=== PATIENT | male | born 1955 | race African-American/Black ===

== ENCOUNTER 2016-12-15 13:07 | Inpatient (IN) | payer MEDICAID, OTHER ==
[~2016-12-15] VITALS: Ht 185.4 cm; Wt 86.6 kg
[~2016-12-15 13:07] MED LIST: FLOMAX0.4 MG ORAL; MACROBID100 MG ORAL; NKM; UNOBMED
[2016-12-15 13:26] VITALS: BP 149/90
[2016-12-15 13:38] LABS: APPEARANCE,URINE CLEAR; KETONES,URINE NEGATIVE (NEGATIVE); LEUKOCYTE ESTERASE ,URINE NEGATIVE (NEGATIVE); NITRITE,URINE NEGATIVE (NEGATIVE); PH,URINE 6 (4.5-8.0); PROTEIN,URINE NEGATIVE (NEGATIVE); UROBILINOGEN,URINE 1 MG/DL (0.0-1.0)
[2016-12-15 14:37] LABS: BASOPHILS % (AUTO) 2.2 % (0.0-2.0); EOSINOPHILS % (AUTO) 0.8 % (0.0-3.0); LYMPHOCYTES % (AUTO) 22.5 % (20.0-45.0); MEAN CORPUSCULAR HEMOGLOBIN 32.2 PG (27.0-31.0); MEAN CORPUSCULAR HGB CONC 32.6 G/DL (32.0-36.0); MEAN CORPUSCULAR VOLUME 99 FL (80-99); MEAN PLATELET VOLUME 5.7 FL (6.5-10.1); MONOCYTES % (AUTO) 6.8 % (1.0-10.0); NEUTROPHILS % (AUTO) 67.7 % (45.0-75.0); PLATELET COUNT 286 K/UL (150-450); RED BLOOD COUNT 3.84 M/UL (4.70-6.10); RED CELL DISTRIBUTION WIDTH 12.3 % (11.6-14.8); WHITE BLOOD COUNT 7.3 K/UL (4.8-10.8)
[2016-12-15 14:47] LABS: ALANINE AMINOTRANSFERASE 9 U/L (3-41); ALBUMIN/GLOBULIN RATIO 1.2 (1.0-2.7); ANION GAP 15 (5-15); ASPARTATE AMINO TRANSFERASE 13 U/L (5-40); CALCIUM 9.3 mg/dL (8.6-10.2); CARBON DIOXIDE 26 mEQ/L (20-30); CHLORIDE 97 mEQ/L (98-107); CREATININE 1.1 mg/dL (0.7-1.2); GLOMERULAR FILTRATION RATE > 60 mL/min (>60); HEMOLYSIS 1; LIPASE 22 U/L (< 60); POTASSIUM 3.6 mEQ/L (3.4-4.9); SODIUM 138 mEQ/L (135-145); TOTAL PROTEIN 7.6 g/dL (6.6-8.7)
[2016-12-15 15:04] LABS: BILIRUBIN,DIRECT 0.2 mg/dL (0.1-0.3)
--- NOTE | 2016-12-15 16:26 | Emergency Room Report ---
History of Present Illness General Chief Complaint: Abdominal Pain Source: Patient (MACKENZIEYANIV Ward D.O.) Present Illness HPI Patient complains of right sided mid abdominal pain for the past 2 days. Patient thought that maybe he had acid reflux and did take Pepto-Bismol. He states that he did not have relief. He has had some nausea but no vomiting. Denies fever or chills. He denies diarrhea. He denies dysuria or hematuria. He has no other complaints. (YANIV MANN D.O.) Allergies: Coded Allergies: No Known Allergies (Unverified , 08/17/13) Patient History Past Medical History: see triage record, old chart reviewed, HTN, seizures, other - BPH Past Surgical History: appy Reviewed Nursing Documentation: PMH: Agreed, PSxH: Agreed (YANIV MANN D.O. ) Nursing Documentation-PMH Hx Hypertension: Yes (YANIV MANN D.O.) Review of Systems All Other Systems: negative except mentioned in HPI (YANIV MANN D.O.) Physical Exam Vital Signs Date Time Temp Pulse Resp B/P Pulse Ox O2 Delivery O2 Flow Rate FiO2 12/15/16 13:11 98.1 87 14 123/87 97 Room Air Sp02 EP Interpretation: reviewed, normal General Appearance: no apparent distress, alert, GCS 15, non-toxic Head: normocephalic, atraumatic Eyes: bilateral eye PERRL, bilateral eye normal inspection ENT: hearing grossly normal, normal pharynx, no angioedema, normal voice Neck: full range of motion, supple/symm/no masses Respiratory: chest non-tender, lungs clear, normal breath sounds, speaking full sentences Cardiovascular #1: regular rate, rhythm, no edema Gastrointestinal: normal bowel sounds, soft, non-distended, no guarding, no rebound, tenderness - TTP RUQ Rectal: deferred Musculoskeletal: back normal, gait/station normal, normal range of motion, non- tender Neurologic: alert, oriented x3, responsive, motor strength/tone normal, sensory intact, speech normal Psychiatric: judgement/insight normal, memory normal, mood/affect normal, no suicidal/homicidal ideation Skin: normal color, no rash, warm/dry, well hydrated (YANIV MANN D.O.) Medical Decision Making Diagnostic Impression: Primary Impression: Abdominal pain Qualified Codes: R10.11 - Right upper quadrant pain Additional Impression: Cholecystitis ER Course This patient presents with a for upper abdominal pain. I am concerned about cholecystitis. The patient is awaiting right upper quadrant ultrasound. Final disposition pending at the time of this dictation. Labs Test 12/15/16 13:15 12/15/16 14:15 Urine Color Yellow Urine Appearance Clear Urine pH 6 (4.5-8.0) Urine Specific [place]yer 1.020 (1.005-1.035) Urine Protein Negative (NEGATIVE) Urine Glucose (UA) Negative (NEGATIVE) Urine Ketones Negative (NEGATIVE) Urine Occult Blood Negative (NEGATIVE) Urine Nitrite Negative (NEGATIVE) Urine Bilirubin Negative (NEGATIVE) Urine Urobilinogen 1 MG/DL (0.0-1.0) Urine Leukocyte Esterase Negative (NEGATIVE) White Blood Count 7.3 K/UL (4.8-10.8) Red Blood Count 3.84 M/UL (4.70-6.10) Hemoglobin 12.4 G/DL (14.2-18.0) Hematocrit 38.0 % (42.0-52.0) Mean Corpuscular Volume 99 FL (80-99) Mean Corpuscular Hemoglobin 32.2 PG (27.0-31.0) Mean Corpuscular Hemoglobin Concent 32.6 G/DL (32.0-36.0) Red Cell Distribution Width 12.3 % (11.6-14.8) Platelet Count 286 K/UL (150-450) Mean Platelet Volume 5.7 FL (6.5-10.1) Neutrophils (%) (Auto) 67.7 % (45.0-75.0) Lymphocytes (%) (Auto) 22.5 % (20.0-45.0) Monocytes (%) (Auto) 6.8 % (1.0-10.0) Eosinophils (%) (Auto) 0.8 % (0.0-3.0) Basophils (%) (Auto) 2.2 % (0.0-2.0) Sodium Level 138 mEQ/L (135-145) Potassium Level 3.6 mEQ/L (3.4-4.9) Chloride Level 97 mEQ/L (98-107) Carbon Dioxide Level 26 mEQ/L (20-30) Anion Gap 15 (5-15) Blood Urea Nitrogen 12 mg/dL (7-23) Creatinine 1.1 mg/dL (0.7-1.2) Estimat Glomerular Filtration Rate > 60 mL/min (>60) Glucose Level 103 mg/dL (74-106) Calcium Level 9.3 mg/dL (8.6-10.2) Total Bilirubin 1.1 mg/dL (0.0-1.2) Direct Bilirubin 0.2 mg/dL (0.1-0.3) Aspartate Amino Transf (AST/SGOT) 13 U/L (5-40) Alanine Aminotransferase (ALT/SGPT) 9 U/L (3-41) Alkaline Phosphatase 66 U/L (40-129) Total Protein 7.6 g/dL (6.6-8.7) Albumin 4.2 g/dL (3.5-5.2) Globulin 3.4 g/dL Albumin/Globulin Ratio 1.2 (1.0-2.7) Lipase 22 U/L (< 60) (YANIV MANN D.O.) ER Course Received signout from Dr Arellano to followup ABD ultrasound CT shows thickened GB wall. Patient s/p appendectomy when he was "12 years old." Endorses 4 days gas, ruq pain, nausea Afebrile. VSS. Labs: No leuks or LFTs. Per tech: GB stone in neck, wall thickened. CBD normal Patient well appearing, ambulating in ED. C/o only of "mild pain." Coags, T&S sent Blood Cx pending Empiric Abx Cefoxitin given General Surgery Dr Kaminski consulted at 611pm. Requested HIDA scan which I ordered Will see patient on consult Endorsed to Dr Moss for med/surg admit at 644pm (KRISTI TOLEDO M.D.) Last Vital Signs Date Time Temp Pulse Resp B/P Pulse Ox O2 Delivery O2 Flow Rate FiO2 12/15/16 13:26 98.1 79 20 149/90 100 Room Air (YANIV MANN D.O.) Status: improved (KRISTI TOLEDO M.D.) Disposition: ADMITTED INPATIENT Condition: Serious Referrals: [facility],REFERRING (PCP) YANIV MANN D.O. Dec 15, 2016 16:26 KRISTI TOLEDO M.D. Dec 15, 2016 18:12
[2016-12-15] MEDS ORDERED: cefOXitin Sod 1 GM in D5W 55 ML IVPB STA (17:41)
[2016-12-15 18:26] LABS: INR 0.9 (0.9-1.1); PROTHROMBIN TIME 9.8 SEC (9.30-11.50)
--- NOTE | 2016-12-15 19:03 | General Progress Note ---
Progress Note Progress Note Surgery: Full consult note to follow. Called to see patient in ED for acute cholecystitis. 61M RUQ abdominal pain x 3 days. Associated nausea, no emesis. Radiation to upper mid/right back. Afebrile, HD stable, no leukocytosis, LFT's okay. CT scan with very distended gallbladder, wall thickening, brennen-cholecystic fluid, and large gallstone in neck of gallbladder. On exam has positive Patel's sign. Given CT scan, physical exam, and pain for 72hrs that has not yet resolved, would recommend admission for monitoring and further evaluation. -NPO with IV fluids -IV Abx -Repeat labs in AM (CBC, CMP) -HIDA scan (given distention of gallbladder and persistent pain, potential for stone being stuck in the neck of the gallbladder causing obstruction) -If does not improve, may need to proceed to surgery -Will follow with you. Thank you for this consultation. Serafin Mcdonough Dec 15, 2016 19:03
[2016-12-15] MEDS ORDERED: Milk of Magnesia 30ml Ud ORAL PRN (19:15)
[2016-12-15] MEDS ORDERED: Mylanta II UD 30ml ORAL PRN ×2 (19:15→19:45)
[2016-12-15] MEDS ORDERED: Morphine Sulfate 2mg/ml Inj IVP PRN ×2 (19:15→19:45)
[2016-12-15] MEDS ORDERED: cefOXitin 1gm Inj ONE (19:23)
[2016-12-15] MEDS ORDERED: Miralax 17gm pkt ORAL PRN (19:45)
[2016-12-15] MEDS ORDERED: Nitroglycerin Subl 0.4mg tab (Bottle Of 25) SL PRN (19:45)
[2016-12-15 19:50] VITALS: BP 140/89
[2016-12-15] MEDS ORDERED: TAMSULOSIN HCL0.4 MG ORAL (19:54)
[2016-12-15] MEDS ORDERED: PROSCAR5 MG ORAL (19:54)
[2016-12-15] MEDS ORDERED: LOSARTAN POTASS25 MG ORAL (19:54)
[2016-12-15] MEDS ORDERED: GABAPENTIN100 MG ORAL (19:54)
[2016-12-15 20:00] VITALS: BP 138/82
[2016-12-15] MEDS ORDERED: LR 1000ml 1,000 ML IV SCH (20:00)
[2016-12-15] MEDS: Morphine Sulfate 2mg/ml Inj IVP PRN (20:19)
[2016-12-15] MEDS: Heparin 5000 units/ml inj SUBQ SCH (21:00)
[2016-12-15] MEDS: Piperacillin/Tazobactam 3.375 GM in D5W 110 ML IVPB SCH (21:53)
[2016-12-15] MEDS: D5 1/2NS 1,000 ML IV SCH (21:53)
--- NOTE | 2016-12-15 22:38 | Consultation ---
Consult Note Consult Note [id number] BABATUNDE BRAGG M.D. Dec 15, 2016 22:38
[2016-12-16] VITALS: BP 138/84
--- NOTE | 2016-12-16 01:15 | Consultation ---
DATE OF CONSULTATION: 12/15/2016 CONSULTING PHYSICIAN: Weston Chávez M.D. REFERRING PHYSICIAN: Amna Moss M.D.. REASON FOR CONSULTATION: Evaluation of patient for cholecystitis, antibiotic management. HISTORY OF PRESENT ILLNESS: The patient is a 61-year-old male with multiple medical problems as listed below who was admitted to this medical center for right upper quadrant pain suggestive cholecystitis. Surgery consult has been requested and Infectious Disease consultation also has been requested for evaluation of the patient and antibiotic management. PAST MEDICAL HISTORY: 1. Seizure. 2. Hypertension. 3. History of appendectomy. 4. History of BPH. 5. History of right knee replacement. ALLERGIES: No known drug allergies. SOCIAL HISTORY: Significant for smoking. FAMILY HISTORY: Noncontributory. REVIEW OF SYSTEMS: A 10-point was done and except what is mentioned above has been negative. PHYSICAL EXAMINATION: VITAL SIGNS: Temperature 98.2, blood pressure 140/89, pulse 74, and respiratory rate 18. HEENT: Mild pale conjunctivae. No icterus. NECK: No lymphadenopathy. CHEST: Clear. HEART: S1 and S2. ABDOMEN: Soft. The patient has right upper quadrant tenderness. Positive Patel's sign. EXTREMITIES: No cyanosis. The patient's left knee wound is healing. NEUROLOGIC: Awake and alert. LABORATORY AND DIAGNOSTIC DATA: White blood cell count 10.3, hemoglobin 12, and platelets 289,000. UA unremarkable. BUN and creatinine normal. Liver function test normal. CT scan of the abdomen reportedly showed distended gallbladder and wall thickening and pericholecystic fluid with large gallstone in the neck of the gallbladder. However, the office report is not available in the computer yet. ASSESSMENT: The patient is a 61-year-old male with, 1. Probable cholecystitis . 2. Right upper quadrant tenderness. PLAN: 1. We will continue the patient on IV Zosyn day #1. 2. Monitor CBC. 3. Monitor BMP. 4. Follow up on ultrasound of the abdomen and HIDA scan reports. 5. Monitor blood culture. 6. Follow surgical recommendations. 7. Based on the patient's clinical course and laboratories, we will give further recommendation. Thank you, Dr. Moss, for allowing me to participate in the care of this patient. I will follow the patient with you during this hospitalization. Weston Chávez M.D. DR: NADIA JOB#: [id number] CC:
[2016-12-16] MEDS: Morphine Sulfate 2mg/ml Inj IVP PRN ×3 (03:28→12:24)
[2016-12-16 04:00] VITALS: BP 144/93
[2016-12-16] MEDS: Piperacillin/Tazobactam 3.375 GM in D5W 110 ML IVPB SCH ×3 (06:05→20:54)
[2016-12-16 06:46] LABS: BASOPHILS % (AUTO) 1.4 % (0.0-2.0); EOSINOPHILS % (AUTO) 1.6 % (0.0-3.0); LYMPHOCYTES % (AUTO) 27.3 % (20.0-45.0); MEAN CORPUSCULAR HEMOGLOBIN 33.8 PG (27.0-31.0); MEAN CORPUSCULAR HGB CONC 34.2 G/DL (32.0-36.0); MEAN CORPUSCULAR VOLUME 99 FL (80-99); MEAN PLATELET VOLUME 5.9 FL (6.5-10.1); MONOCYTES % (AUTO) 10.1 % (1.0-10.0); NEUTROPHILS % (AUTO) 59.5 % (45.0-75.0); PLATELET COUNT 262 K/UL (150-450); RED CELL DISTRIBUTION WIDTH 12.3 % (11.6-14.8); WHITE BLOOD COUNT 6.2 K/UL (4.8-10.8)
[2016-12-16 06:57] LABS: ALANINE AMINOTRANSFERASE 6 U/L (3-41); ALBUMIN/GLOBULIN RATIO 1.1 (1.0-2.7); ANION GAP 15 (5-15); ASPARTATE AMINO TRANSFERASE 13 U/L (5-40); CALCIUM 8.9 mg/dL (8.6-10.2); CARBON DIOXIDE 24 mEQ/L (20-30); CHLORIDE 100 mEQ/L (98-107); CREATININE 1.1 mg/dL (0.7-1.2); GLOMERULAR FILTRATION RATE > 60 mL/min (>60); HEMOLYSIS 4; POTASSIUM 3.8 mEQ/L (3.4-4.9); SODIUM 139 mEQ/L (135-145); TOTAL PROTEIN 6.7 g/dL (6.6-8.7)
[2016-12-16 07:25] LABS: BILIRUBIN,DIRECT 0.2 mg/dL (0.1-0.3)
[2016-12-16 08:00] VITALS: BP 135/86
[2016-12-16 08:04] LABS: AMYLASE 82 U/L (10-110); LIPASE 19 U/L (< 60)
[2016-12-16] MEDS: Pantoprazole Inj IVP SCH (08:19)
[2016-12-16] MEDS: Losartan 25mg tab ORAL SCH (08:21)
[2016-12-16] MEDS: Heparin 5000 units/ml inj SUBQ SCH ×2 (08:23→20:55)
--- NOTE | 2016-12-16 08:57 | Diagnostic Imaging Report ---
Indication: Right upper quadrant pain Technique: Ultrasound of the abdomen. Comparison: CT abdomen and pelvis from earlier the same day Findings: The pancreas is incompletely visualized. Visualized portions are unremarkable. Liver echogenicity is within normal limits. No focal liver lesions are identified. Visualized portions of the main portal vein and the hepatic veins are grossly unremarkable although incompletely evaluated. Gallstones are present. Gallbladder is distended. Gallbladder wall measures approximately 4 mm. Common bile duct measures 5 mm. Bilateral kidneys demonstrate normal echogenicity. No focal renal lesions are seen. There is no hydronephrosis. No echogenic renal stones are identified. The spleen is normal in size and echogenicity. The visualized aorta is normal in caliber. Visualized portions of the inferior vena cava are unremarkable. Impression: Distended gallbladder with sludge and stones. Positive sonographic Patel sign and clinical correlation recommended for acute cholecystitis.
--- NOTE | 2016-12-16 09:47 | History and Physical ---
History of Present Illness General Date patient seen: Dec 16, 2016 Time patient seen: 09:20 Reason for Hospitalization: Abdominal Pain Present Illness HPI 61 y/old male presented with c/o right sided mid abdominal pain x 3 days patient was afebrile, stable VS No leukocytosis, stable LFT CT A/P scan with very distended gallbladder, wall thickening, brennen-cholecystic fluid, and large gallstone in neck of gallbladder. surgeon seen patient in ED, on exam demonstrated + Patel sign Given results of CT scan, physical exam, and pain for 72hrs that had not yet resolved, patient was admitted for monitoring and further evaluation. Allergies: Coded Allergies: No Known Allergies (Unverified , 08/17/13) Medication History Scheduled Finasteride* (Proscar*), Unknown Dose ORAL DAILY, (Reported) Gabapentin* (Gabapentin*), Unknown Dose ORAL THREE TIMES A DAY, (Reported) Losartan Potassium* (Losartan Potassium*), Unknown Dose ORAL DAILY, (Reported) No Known Medications* (NKM - No Known Medications*), 0 ., (Reported) Tamsulosin Hcl (Tamsulosin Hcl*), Unknown Dose ORAL BEDTIME, (Reported) Discontinued Medications Nitrofurantoin Monohyd/M-Cryst (Nitrofurantoin Converse-Mcr 100 mg), 100 MG ORAL Q12H Discontinued Reason: Therapy completed Tamsulosin HCl (Flomax), 0.4 MG ORAL DAILY Discontinued Reason: Therapy completed Patient History History Provided By: Patient Healthcare decision maker Resuscitation status Advanced Directive on File Past Medical/Surgical History Past Medical/Surgical History: (1) HTN (hypertension) (2) BPH (benign prostatic hyperplasia) (3) Urinary Retention (4) hematuria Review of Systems Constitutional: Reports: weakness Eye: Reports: no symptoms ENT: Reports: no symptoms Respiratory: Reports: no symptoms Cardiovascular: Reports: other - HTN Gastrointestinal: Reports: see HPI Genitourinary: Reports: other - Hx of BPH Musculoskeletal: Reports: no symptoms Skin: Reports: no symptoms Neurological: Reports: other - hx of seizures Endocrine: Reports: no symptoms Hematologic/Lymphatic: Reports: no symptoms Physical Exam General Appearance: WD/WN, no apparent distress, alert Lines, tubes and drains: peripheral HEENT: normocephalic, atraumatic, anicteric Neck: non-tender, supple Respiratory/Chest: lungs clear, no respiratory distress, no accessory muscle use Cardiovascular/Chest: normal peripheral pulses, normal rate, no JVD Abdomen: normal bowel sounds, soft - RUQ tenderness, no rebound, no guarding Extremities: normal range of motion, no calf tenderness, normal capillary refill Neurologic: no motor/sensory deficits, alert, oriented x 3 Musculoskeletal: normal muscle bulk Last 24 Hour Vital Signs Date Time Temp Pulse Resp B/P Pulse Ox O2 Delivery O2 Flow Rate FiO2 12/16/16 08:45 97.9 12/16/16 08:21 144/93 12/16/16 08:00 97.3 65 20 135/86 98 Room Air 12/16/16 04:00 97.9 67 18 144/93 97 Room Air 12/16/16 00:00 98.2 74 18 138/84 96 Room Air 12/15/16 20:00 98.2 66 18 138/82 97 Room Air 12/15/16 20:00 98.2 74 18 140/89 100 Room Air 12/15/16 19:50 98.2 74 18 140/89 100 Room Air 12/15/16 13:26 98.1 79 20 149/90 100 Room Air 12/15/16 13:11 98.1 87 14 123/87 97 Room Air Intake and Output 12/15/16 12/16/16 19:00 07:00 Intake Total 1385.0 ml Balance 1385.0 ml Intake IV Total 1385.0 ml # Voids 1 1 Laboratory Tests Test 12/15/16 13:15 12/15/16 14:15 12/16/16 05:40 Urine Color Yellow Urine Appearance Clear Urine pH 6 (4.5-8.0) Urine Specific [place] 1.020 (1.005-1.035) Urine Protein Negative (NEGATIVE) Urine Glucose (UA) Negative (NEGATIVE) Urine Ketones Negative (NEGATIVE) Urine Occult Blood Negative (NEGATIVE) Urine Nitrite Negative (NEGATIVE) Urine Bilirubin Negative (NEGATIVE) Urine Urobilinogen 1 MG/DL (0.0-1.0) H Urine Leukocyte Esterase Negative (NEGATIVE) White Blood Count 7.3 K/UL (4.8-10.8) 6.2 K/UL (4.8-10.8) Red Blood Count 3.84 M/UL (4.70-6.10) L 3.40 M/UL (4.70-6.10) L Hemoglobin 12.4 G/DL (14.2-18.0) L 11.5 G/DL (14.2-18.0) L Hematocrit 38.0 % (42.0-52.0) L 33.6 % (42.0-52.0) L Mean Corpuscular Volume 99 FL (80-99) 99 FL (80-99) Mean Corpuscular Hemoglobin 32.2 PG (27.0-31.0) H 33.8 PG (27.0-31.0) H Mean Corpuscular Hemoglobin Concent 32.6 G/DL (32.0-36.0) 34.2 G/DL (32.0-36.0) Red Cell Distribution Width 12.3 % (11.6-14.8) 12.3 % (11.6-14.8) Platelet Count 286 K/UL (150-450) 262 K/UL (150-450) Mean Platelet Volume 5.7 FL (6.5-10.1) L 5.9 FL (6.5-10.1) L Neutrophils (%) (Auto) 67.7 % (45.0-75.0) 59.5 % (45.0-75.0) Lymphocytes (%) (Auto) 22.5 % (20.0-45.0) 27.3 % (20.0-45.0) Monocytes (%) (Auto) 6.8 % (1.0-10.0) 10.1 % (1.0-10.0) H Eosinophils (%) (Auto) 0.8 % (0.0-3.0) 1.6 % (0.0-3.0) Basophils (%) (Auto) 2.2 % (0.0-2.0) H 1.4 % (0.0-2.0) Prothrombin Time 9.8 SEC (9.30-11.50) Prothromb Time International Ratio 0.9 (0.9-1.1) Activated Partial Thromboplast Time 30 SEC (23-33) 30 SEC (23-33) Sodium Level 138 mEQ/L (135-145) 139 mEQ/L (135-145) Potassium Level 3.6 mEQ/L (3.4-4.9) 3.8 mEQ/L (3.4-4.9) Chloride Level 97 mEQ/L (98-107) L 100 mEQ/L (98-107) Carbon Dioxide Level 26 mEQ/L (20-30) 24 mEQ/L (20-30) Anion Gap 15 (5-15) 15 (5-15) Blood Urea Nitrogen 12 mg/dL (7-23) 10 mg/dL (7-23) Creatinine 1.1 mg/dL (0.7-1.2) 1.1 mg/dL (0.7-1.2) Estimat Glomerular Filtration Rate > 60 mL/min (>60) > 60 mL/min (>60) Glucose Level 103 mg/dL (74-106) 109 mg/dL (74-106) H Calcium Level 9.3 mg/dL (8.6-10.2) 8.9 mg/dL (8.6-10.2) Total Bilirubin 1.1 mg/dL (0.0-1.2) 1.4 mg/dL (0.0-1.2) H Direct Bilirubin 0.2 mg/dL (0.1-0.3) 0.2 mg/dL (0.1-0.3) Aspartate Amino Transf (AST/SGOT) 13 U/L (5-40) 13 U/L (5-40) Alanine Aminotransferase (ALT/SGPT) 9 U/L (3-41) 6 U/L (3-41) Alkaline Phosphatase 66 U/L (40-129) 60 U/L (40-129) Total Protein 7.6 g/dL (6.6-8.7) 6.7 g/dL (6.6-8.7) Albumin 4.2 g/dL (3.5-5.2) 3.6 g/dL (3.5-5.2) Globulin 3.4 g/dL 3.1 g/dL Albumin/Globulin Ratio 1.2 (1.0-2.7) 1.1 (1.0-2.7) Lipase 22 U/L (< 60) Pending Amylase Level Pending Height (Feet): 6 Height (Inches): 1.00 Weight (Pounds): 191 Medications Current Medications Medications (Trade) Dose Ordered Sig/Agnes Route PRN Reason Start Time Stop Time Status Last Admin Dose Admin Acetaminophen (Tylenol) 650 mg Q4H PRN ORAL Mild Pain (Pain Scale 1-3) 12/15/16 19:15 01/14/17 19:14 Acetaminophen (Tylenol) 650 mg Q4H PRN ORAL fever 12/15/16 19:45 01/14/17 19:44 Al Hydroxide/Mg Hydroxide (Mylanta II) 30 ml Q6H PRN ORAL dyspepsia 12/15/16 19:45 01/14/17 19:44 Bisacodyl (Dulcolax) 10 mg HSPRN PRN RECTAL Constipation 12/15/16 19:15 01/14/17 19:14 Dextrose STAT PRN IV Hypoglycemia 12/15/16 19:45 01/14/17 19:44 Dextrose/Sodium Chloride (D5 0.45% NS) 1,000 ml @ 75 mls/hr [id number] IV 12/15/16 21:00 01/14/17 20:59 12/15/16 21:53 Diphenhydramine HCl (Benadryl) 25 mg Q6H PRN ORAL Itching/Pruritis 12/15/16 19:45 01/14/17 19:44 Finasteride (Proscar) 5 mg DAILY ORAL 12/16/16 09:00 01/15/17 08:59 12/16/16 08:22 Heparin Sodium (Porcine) (Heparin 5000 units/ml) 5,000 units EVERY 12 HOURS SUBQ 12/15/16 21:00 01/14/17 20:59 12/16/16 08:23 Losartan Potassium (Cozaar) 25 mg DAILY ORAL 12/16/16 09:00 01/15/17 08:59 12/16/16 08:21 Magnesium Hydroxide 30 ml 30 ml HSPRN PRN ORAL Constipation 12/15/16 19:15 01/14/17 19:14 Morphine Sulfate (Morphine Sulfate) 1 mg Q4H PRN IVP For Pain 12/15/16 19:15 12/22/16 19:14 Morphine Sulfate (Morphine Sulfate) 2 mg Q4H PRN IVP Moderate Pain (Pain Scale 4-6) 12/15/16 19:15 12/22/16 19:14 12/16/16 08:21 Morphine Sulfate (Morphine Sulfate) 4 mg Q4H PRN IVP Severe Pain (Pain Scale 7-10) 12/15/16 19:15 12/22/16 19:14 Nitroglycerin (Ntg) 0.4 mg Q5M X 3 DOSES PRN SL Prn Chest Pain 12/15/16 19:45 01/14/17 19:44 Ondansetron HCl (Zofran) 4 mg Q6H PRN IVP Nausea & Vomiting 12/15/16 19:45 01/14/17 19:44 Pantoprazole (Protonix) 40 mg DAILY IVP 12/16/16 09:00 01/15/17 08:59 12/16/16 08:19 Piperacillin Sod/ Tazobactam Sod/ Dextrose (Zosyn/D5W) 110 ml @ 27.5 mls/hr EVERY 8 HOURS IVPB 12/15/16 22:00 12/22/16 21:59 12/16/16 06:05 Polyethylene Glycol (Miralax) 17 gm HSPRN PRN ORAL Constipation 12/15/16 19:45 01/14/17 19:44 Tamsulosin HCl (Flomax) 0.4 mg BEDTIME ORAL 12/16/16 21:00 01/15/17 20:59 Temazepam (Restoril) 15 mg HSPRN PRN ORAL Insomnia 12/15/16 19:45 12/22/16 19:44 Assessment/Plan Assessment/Plan ASSESSMENT RUQ ABDOMINAL PAIN POSSIBLE ACUTE CHOLECYSTITIS HTN BPH PLAN OF CARE MS floor empiric abx IVF NPO Hida scan monitor LFT surgery and ID follow pain management a/emetic prn BP management with ARB and optimize further as needed DVT GI prophylaxis case discussed and evaluated by supervising physician Saad TrevinoHarlem Valley State HospitalFlaquita Rodriguez NP Dec 16, 2016 09:47
[2016-12-16] MEDS ORDERED: Tubing IV Secondary IV ONE (10:04)
[2016-12-16] MEDS ORDERED: D5 1/2NS 1000ml IV ONE (10:04)
[2016-12-16] MEDS: D5 1/2NS 1,000 ML IV SCH ×2 (10:25→23:40)
[2016-12-16 12:00] VITALS: BP 139/92
[2016-12-16 16:00] VITALS: BP 137/96
[2016-12-16] MEDS: Morphine Sulfate 4mg/ml Inj IVP PRN ×2 (16:43→20:53)
--- NOTE | 2016-12-16 19:33 | Infectious Diseases Prog Note ---
Assessment/Plan Assessment/Plan A The patient is a 61-year-old male with Probable Cholecystitis, antibiotic management. Seizure. Hypertension. History of appendectomy. History of BPH. History of right knee replacement PLAN: continue the patient on IV Zosyn day # 2 Monitor CBC. Monitor BMP. ultrasound of the abdomen and HIDA scan P Monitor blood culture Subjective Allergies: Coded Allergies: No Known Allergies (Unverified , 08/17/13) Subjective RUQ pain Objective Vital Signs Last 24 Hour Vital Signs Date Time Temp Pulse Resp B/P Pulse Ox O2 Delivery O2 Flow Rate FiO2 12/16/16 17:13 97.9 12/16/16 16:00 97.3 90 20 137/96 100 Room Air 12/16/16 12:54 97.9 12/16/16 12:00 97.7 67 20 139/92 97 Room Air 12/16/16 08:21 144/93 12/16/16 08:00 97.3 65 20 135/86 98 Room Air 12/16/16 04:00 97.9 67 18 144/93 97 Room Air 12/16/16 00:00 98.2 74 18 138/84 96 Room Air 12/15/16 20:00 98.2 66 18 138/82 97 Room Air 12/15/16 20:00 98.2 74 18 140/89 100 Room Air 12/15/16 19:50 98.2 74 18 140/89 100 Room Air Height (Feet): 6 Height (Inches): 1.00 Weight (Pounds): 191 HEENT: mucous membranes moist Respiratory/Chest: no respiratory distress Cardiovascular: regularly irregular Abdomen: no mass Laboratory Tests Test 12/16/16 05:40 White Blood Count 6.2 K/UL (4.8-10.8) Red Blood Count 3.40 M/UL (4.70-6.10) L Hemoglobin 11.5 G/DL (14.2-18.0) L Hematocrit 33.6 % (42.0-52.0) L Mean Corpuscular Volume 99 FL (80-99) Mean Corpuscular Hemoglobin 33.8 PG (27.0-31.0) H Mean Corpuscular Hemoglobin Concent 34.2 G/DL (32.0-36.0) Red Cell Distribution Width 12.3 % (11.6-14.8) Platelet Count 262 K/UL (150-450) Mean Platelet Volume 5.9 FL (6.5-10.1) L Neutrophils (%) (Auto) 59.5 % (45.0-75.0) Lymphocytes (%) (Auto) 27.3 % (20.0-45.0) Monocytes (%) (Auto) 10.1 % (1.0-10.0) H Eosinophils (%) (Auto) 1.6 % (0.0-3.0) Basophils (%) (Auto) 1.4 % (0.0-2.0) Activated Partial Thromboplast Time 30 SEC (23-33) Sodium Level 139 mEQ/L (135-145) Potassium Level 3.8 mEQ/L (3.4-4.9) Chloride Level 100 mEQ/L (98-107) Carbon Dioxide Level 24 mEQ/L (20-30) Anion Gap 15 (5-15) Blood Urea Nitrogen 10 mg/dL (7-23) Creatinine 1.1 mg/dL (0.7-1.2) Estimat Glomerular Filtration Rate > 60 mL/min (>60) Glucose Level 109 mg/dL (74-106) H Calcium Level 8.9 mg/dL (8.6-10.2) Total Bilirubin 1.4 mg/dL (0.0-1.2) H Direct Bilirubin 0.2 mg/dL (0.1-0.3) Aspartate Amino Transf (AST/SGOT) 13 U/L (5-40) Alanine Aminotransferase (ALT/SGPT) 6 U/L (3-41) Alkaline Phosphatase 60 U/L (40-129) Total Protein 6.7 g/dL (6.6-8.7) Albumin 3.6 g/dL (3.5-5.2) Globulin 3.1 g/dL Albumin/Globulin Ratio 1.1 (1.0-2.7) Amylase Level 82 U/L (10-110) Lipase 19 U/L (< 60) Current Medications Medications (Trade) Dose Ordered Sig/Agnes Route PRN Reason Start Time Stop Time Status Last Admin Dose Admin Acetaminophen (Tylenol) 650 mg Q4H PRN ORAL Mild Pain (Pain Scale 1-3) 12/15/16 19:15 01/14/17 19:14 Acetaminophen (Tylenol) 650 mg Q4H PRN ORAL fever 12/15/16 19:45 01/14/17 19:44 Al Hydroxide/Mg Hydroxide (Mylanta II) 30 ml Q6H PRN ORAL dyspepsia 12/15/16 19:45 01/14/17 19:44 Bisacodyl (Dulcolax) 10 mg HSPRN PRN RECTAL Constipation 12/15/16 19:15 01/14/17 19:14 Dextrose STAT PRN IV Hypoglycemia 12/15/16 19:45 01/14/17 19:44 Dextrose/Sodium Chloride (D5 0.45% NS) 1,000 ml @ 75 mls/hr [id number] IV 12/15/16 21:00 01/14/17 20:59 12/16/16 10:25 Diphenhydramine HCl (Benadryl) 25 mg Q6H PRN ORAL Itching/Pruritis 12/15/16 19:45 01/14/17 19:44 Finasteride (Proscar) 5 mg DAILY ORAL 12/16/16 09:00 01/15/17 08:59 12/16/16 08:22 Heparin Sodium (Porcine) (Heparin 5000 units/ml) 5,000 units EVERY 12 HOURS SUBQ 12/15/16 21:00 01/14/17 20:59 12/16/16 08:23 Losartan Potassium (Cozaar) 25 mg DAILY ORAL 12/16/16 09:00 01/15/17 08:59 12/16/16 08:21 Magnesium Hydroxide 30 ml 30 ml HSPRN PRN ORAL Constipation 12/15/16 19:15 01/14/17 19:14 Morphine Sulfate (Morphine Sulfate) 1 mg Q4H PRN IVP For Pain 12/15/16 19:15 12/22/16 19:14 Morphine Sulfate (Morphine Sulfate) 2 mg Q4H PRN IVP Moderate Pain (Pain Scale 4-6) 12/15/16 19:15 12/22/16 19:14 12/16/16 12:24 Morphine Sulfate (Morphine Sulfate) 4 mg Q4H PRN IVP Severe Pain (Pain Scale 7-10) 12/15/16 19:15 12/22/16 19:14 12/16/16 16:43 Nitroglycerin (Ntg) 0.4 mg Q5M X 3 DOSES PRN SL Prn Chest Pain 12/15/16 19:45 01/14/17 19:44 Ondansetron HCl (Zofran) 4 mg Q6H PRN IVP Nausea & Vomiting 12/15/16 19:45 01/14/17 19:44 Pantoprazole (Protonix) 40 mg DAILY IVP 12/16/16 09:00 01/15/17 08:59 12/16/16 08:19 Piperacillin Sod/ Tazobactam Sod/ Dextrose (Zosyn/D5W) 110 ml @ 27.5 mls/hr EVERY 8 HOURS IVPB 12/15/16 22:00 12/22/16 21:59 12/16/16 14:34 Polyethylene Glycol (Miralax) 17 gm HSPRN PRN ORAL Constipation 12/15/16 19:45 01/14/17 19:44 Tamsulosin HCl (Flomax) 0.4 mg BEDTIME ORAL 12/16/16 21:00 01/15/17 20:59 Temazepam (Restoril) 15 mg HSPRN PRN ORAL Insomnia 12/15/16 19:45 12/22/16 19:44 BABATUNDE BRAGG M.D. Dec 16, 2016 19:33
[2016-12-16] MEDS: Tamsulosin 0.4mg cap ORAL SCH (20:53)
[2016-12-16 21:22] VITALS: BP 141/92
[2016-12-17] MEDS: Morphine Sulfate 4mg/ml Inj IVP PRN ×5 (01:01→20:35)
[2016-12-17 04:00] VITALS: BP 135/80
[2016-12-17] MEDS: Piperacillin/Tazobactam 3.375 GM in D5W 110 ML IVPB SCH ×3 (04:53→22:07)
[2016-12-17 07:17] LABS: EOSINOPHILS % (AUTO) 1.2 % (0.0-3.0); LYMPHOCYTES % (AUTO) 23.6 % (20.0-45.0); MEAN CORPUSCULAR HEMOGLOBIN 32.8 PG (27.0-31.0); MEAN CORPUSCULAR HGB CONC 33.2 G/DL (32.0-36.0); MEAN CORPUSCULAR VOLUME 99 FL (80-99); MEAN PLATELET VOLUME 5.9 FL (6.5-10.1); MONOCYTES % (AUTO) 11.7 % (1.0-10.0); NEUTROPHILS % (AUTO) 62.5 % (45.0-75.0); PLATELET COUNT 283 K/UL (150-450); RED BLOOD COUNT 3.43 M/UL (4.70-6.10); RED CELL DISTRIBUTION WIDTH 11.9 % (11.6-14.8); WHITE BLOOD COUNT 6.2 K/UL (4.8-10.8)
[2016-12-17 07:21] LABS: ALANINE AMINOTRANSFERASE 6 U/L (3-41); ALBUMIN/GLOBULIN RATIO 1.1 (1.0-2.7); ANION GAP 13 (5-15); ASPARTATE AMINO TRANSFERASE 11 U/L (5-40); CALCIUM 8.8 mg/dL (8.6-10.2); CARBON DIOXIDE 25 mEQ/L (20-30); CHLORIDE 98 mEQ/L (98-107); CREATININE 1.2 mg/dL (0.7-1.2); GLOMERULAR FILTRATION RATE > 60 mL/min (>60); HEMOLYSIS 2; POTASSIUM 3.8 mEQ/L (3.4-4.9); SODIUM 136 mEQ/L (135-145); TOTAL PROTEIN 6.8 g/dL (6.6-8.7)
[2016-12-17 07:37] VITALS: BP 122/78
[2016-12-17 07:40] LABS: BILIRUBIN,DIRECT 0.2 mg/dL (0.1-0.3)
[2016-12-17] MEDS: Pantoprazole Inj IVP SCH (08:07)
[2016-12-17] MEDS: Losartan 25mg tab ORAL SCH (08:08)
[2016-12-17] MEDS: Heparin 5000 units/ml inj SUBQ SCH ×2 (08:10→20:42)
--- NOTE | 2016-12-17 11:23 | Infectious Diseases Prog Note ---
Assessment/Plan Assessment/Plan A; Acute Cholecystitis Cholelithiasis BPH P: Continue Zosyn plan per surgeon Subjective ROS Limited/Unobtainable: No Constitutional: Reports: no symptoms Respiratory: Reports: no symptoms Gastrointestinal/Abdominal: Reports: other - right upper quadrant pain Genitourinary: Reports: no symptoms Allergies: Coded Allergies: No Known Allergies (Unverified , 08/17/13) Objective Vital Signs Last 24 Hour Vital Signs Date Time Temp Pulse Resp B/P Pulse Ox O2 Delivery O2 Flow Rate FiO2 12/17/16 08:08 122/78 12/17/16 07:37 98.2 72 18 122/78 96 Room Air 12/17/16 05:24 98.1 12/17/16 04:00 98.1 71 18 135/80 97 Room Air 12/16/16 21:22 98.0 65 18 141/92 96 Room Air 12/16/16 16:00 97.3 90 20 137/96 100 Room Air 12/16/16 12:54 97.9 12/16/16 12:00 97.7 67 20 139/92 97 Room Air Height (Feet): 6 Height (Inches): 1.00 Weight (Pounds): 191 General Appearance: no acute distress HEENT: mucous membranes moist Respiratory/Chest: lungs clear Cardiovascular: normal rate Abdomen: other - tender in RUQ Extremities: no edema Neurologic/Psychiatric: alert, oriented x 3, responsive Microbiology Date/Time Source Procedure Growth Status 12/15/16 19:20 Blood Blood Culture - Preliminary NO GROWTH AFTER 24 HOURS Resulted 12/15/16 19:00 Blood Blood Culture - Preliminary NO GROWTH AFTER 24 HOURS Resulted Laboratory Tests Test 12/17/16 04:55 White Blood Count 6.2 K/UL (4.8-10.8) Red Blood Count 3.43 M/UL (4.70-6.10) L Hemoglobin 11.3 G/DL (14.2-18.0) L Hematocrit 33.9 % (42.0-52.0) L Mean Corpuscular Volume 99 FL (80-99) Mean Corpuscular Hemoglobin 32.8 PG (27.0-31.0) H Mean Corpuscular Hemoglobin Concent 33.2 G/DL (32.0-36.0) Red Cell Distribution Width 11.9 % (11.6-14.8) Platelet Count 283 K/UL (150-450) Mean Platelet Volume 5.9 FL (6.5-10.1) L Neutrophils (%) (Auto) 62.5 % (45.0-75.0) Lymphocytes (%) (Auto) 23.6 % (20.0-45.0) Monocytes (%) (Auto) 11.7 % (1.0-10.0) H Eosinophils (%) (Auto) 1.2 % (0.0-3.0) Basophils (%) (Auto) 1.0 % (0.0-2.0) Sodium Level 136 mEQ/L (135-145) Potassium Level 3.8 mEQ/L (3.4-4.9) Chloride Level 98 mEQ/L (98-107) Carbon Dioxide Level 25 mEQ/L (20-30) Anion Gap 13 (5-15) Blood Urea Nitrogen 10 mg/dL (7-23) Creatinine 1.2 mg/dL (0.7-1.2) Estimat Glomerular Filtration Rate > 60 mL/min (>60) Glucose Level 95 mg/dL (74-106) Calcium Level 8.8 mg/dL (8.6-10.2) Total Bilirubin 1.3 mg/dL (0.0-1.2) H Direct Bilirubin 0.2 mg/dL (0.1-0.3) Aspartate Amino Transf (AST/SGOT) 11 U/L (5-40) Alanine Aminotransferase (ALT/SGPT) 6 U/L (3-41) Alkaline Phosphatase 57 U/L (40-129) Total Protein 6.8 g/dL (6.6-8.7) Albumin 3.6 g/dL (3.5-5.2) Globulin 3.2 g/dL Albumin/Globulin Ratio 1.1 (1.0-2.7) Current Medications Medications (Trade) Dose Ordered Sig/Agnes Route PRN Reason Start Time Stop Time Status Last Admin Dose Admin Acetaminophen (Tylenol) 650 mg Q4H PRN ORAL Mild Pain (Pain Scale 1-3) 12/15/16 19:15 01/14/17 19:14 Acetaminophen (Tylenol) 650 mg Q4H PRN ORAL fever 12/15/16 19:45 01/14/17 19:44 Al Hydroxide/Mg Hydroxide (Mylanta II) 30 ml Q6H PRN ORAL dyspepsia 12/15/16 19:45 01/14/17 19:44 Bisacodyl (Dulcolax) 10 mg HSPRN PRN RECTAL Constipation 12/15/16 19:15 01/14/17 19:14 Dextrose STAT PRN IV Hypoglycemia 12/15/16 19:45 01/14/17 19:44 Dextrose/Sodium Chloride (D5 0.45% NS) 1,000 ml @ 75 mls/hr [id number] IV 12/15/16 21:00 01/14/17 20:59 12/16/16 10:25 Diphenhydramine HCl (Benadryl) 25 mg Q6H PRN ORAL Itching/Pruritis 12/15/16 19:45 01/14/17 19:44 Finasteride (Proscar) 5 mg DAILY ORAL 12/16/16 09:00 01/15/17 08:59 12/17/16 08:08 Heparin Sodium (Porcine) (Heparin 5000 units/ml) 5,000 units EVERY 12 HOURS SUBQ 12/15/16 21:00 01/14/17 20:59 12/17/16 08:10 Losartan Potassium (Cozaar) 25 mg DAILY ORAL 12/16/16 09:00 01/15/17 08:59 12/17/16 08:08 Magnesium Hydroxide 30 ml 30 ml HSPRN PRN ORAL Constipation 12/15/16 19:15 01/14/17 19:14 Morphine Sulfate (Morphine Sulfate) 1 mg Q4H PRN IVP For Pain 12/15/16 19:15 12/22/16 19:14 Morphine Sulfate (Morphine Sulfate) 2 mg Q4H PRN IVP Moderate Pain (Pain Scale 4-6) 12/15/16 19:15 12/22/16 19:14 12/16/16 12:24 Morphine Sulfate (Morphine Sulfate) 4 mg Q4H PRN IVP Severe Pain (Pain Scale 7-10) 12/15/16 19:15 12/22/16 19:14 12/17/16 09:55 Nitroglycerin (Ntg) 0.4 mg Q5M X 3 DOSES PRN SL Prn Chest Pain 12/15/16 19:45 01/14/17 19:44 Ondansetron HCl (Zofran) 4 mg Q6H PRN IVP Nausea & Vomiting 12/15/16 19:45 01/14/17 19:44 Pantoprazole (Protonix) 40 mg DAILY IVP 12/16/16 09:00 01/15/17 08:59 12/17/16 08:07 Piperacillin Sod/ Tazobactam Sod/ Dextrose (Zosyn/D5W) 110 ml @ 27.5 mls/hr EVERY 8 HOURS IVPB 12/15/16 22:00 12/22/16 21:59 12/17/16 04:53 Polyethylene Glycol (Miralax) 17 gm HSPRN PRN ORAL Constipation 12/15/16 19:45 01/14/17 19:44 Tamsulosin HCl (Flomax) 0.4 mg BEDTIME ORAL 12/16/16 21:00 01/15/17 20:59 12/16/16 20:53 Temazepam (Restoril) 15 mg HSPRN PRN ORAL Insomnia 12/15/16 19:45 12/22/16 19:44 NOHELIA VILLALOBOS Dec 17, 2016 11:23
--- NOTE | 2016-12-17 11:25 | Pulmonology Progress Note ---
Assessment/Plan Assessment/Plan ASSESSMENT RUQ ABDOMINAL PAIN POSSIBLE ACUTE CHOLECYSTITIS possible biliary colic HTN BPH PLAN OF CARE MS floor empiric abx IVF CL diet as tolerated and NPO after MN for test Hida scan in am monitor LFT , stable surgery and ID follow pain management a/emetic prn BP management with ARB and optimize further as needed DVT GI prophylaxis case discussed and evaluated by supervising physician Subjective Allergies: Coded Allergies: No Known Allergies (Unverified , 08/17/13) Subjective still with RUQ pain no n/v/diarrhea afebrile no leucocytosis all labs stable Objective Last 24 Hour Vital Signs Date Time Temp Pulse Resp B/P Pulse Ox O2 Delivery O2 Flow Rate FiO2 12/17/16 08:08 122/78 12/17/16 07:37 98.2 72 18 122/78 96 Room Air 12/17/16 05:24 98.1 12/17/16 04:00 98.1 71 18 135/80 97 Room Air 12/16/16 21:22 98.0 65 18 141/92 96 Room Air 12/16/16 16:00 97.3 90 20 137/96 100 Room Air 12/16/16 12:54 97.9 12/16/16 12:00 97.7 67 20 139/92 97 Room Air Intake and Output 12/16/16 12/17/16 19:00 07:00 Intake Total 485.0 ml 615.0 ml Balance 485.0 ml 615.0 ml Intake IV Total 485.0 ml 615.0 ml # Voids 4 3 Objective General Appearance: WD/WN, no apparent distress, alert Lines, tubes and drains: peripheral HEENT: normocephalic, atraumatic, anicteric Neck: non-tender, supple Respiratory/Chest: lungs clear, no respiratory distress, no accessory muscle use Cardiovascular/Chest: normal peripheral pulses, normal rate, no JVD Abdomen: normal bowel sounds, soft , RUQ tenderness, no rebound, no guarding Extremities: normal range of motion, no calf tenderness, normal capillary refill Neurologic: no motor/sensory deficits, alert, oriented x 3 Musculoskeletal: normal muscle bulk Microbiology Date/Time Source Procedure Growth Status 12/15/16 19:20 Blood Blood Culture - Preliminary NO GROWTH AFTER 24 HOURS Resulted 12/15/16 19:00 Blood Blood Culture - Preliminary NO GROWTH AFTER 24 HOURS Resulted Laboratory Tests 12/17/16 04:55: White Blood Count 6.2, Red Blood Count 3.43L, Hemoglobin 11.3L, Hematocrit 33.9L , Mean Corpuscular Volume 99, Mean Corpuscular Hemoglobin 32.8H, Mean Corpuscular Hemoglobin Concent 33.2, Red Cell Distribution Width 11.9, Platelet Count 283, Mean Platelet Volume 5.9L, Neutrophils (%) (Auto) 62.5, Lymphocytes ( %) (Auto) 23.6, Monocytes (%) (Auto) 11.7H, Eosinophils (%) (Auto) 1.2, Basophils (%) (Auto) 1.0, Sodium Level 136, Potassium Level 3.8, Chloride Level 98, Carbon Dioxide Level 25, Anion Gap 13, Blood Urea Nitrogen 10, Creatinine 1.2, Estimat Glomerular Filtration Rate > 60, Glucose Level 95, Calcium Level 8.8, Total Bilirubin 1.3H, Direct Bilirubin 0.2, Aspartate Amino Transf (AST/ SGOT) 11, Alanine Aminotransferase (ALT/SGPT) 6, Alkaline Phosphatase 57, Total Protein 6.8, Albumin 3.6, Globulin 3.2, Albumin/Globulin Ratio 1.1 Current Medications Medications (Trade) Dose Ordered Sig/Agnes Route PRN Reason Start Time Stop Time Status Last Admin Dose Admin Acetaminophen (Tylenol) 650 mg Q4H PRN ORAL Mild Pain (Pain Scale 1-3) 12/15/16 19:15 01/14/17 19:14 Acetaminophen (Tylenol) 650 mg Q4H PRN ORAL fever 12/15/16 19:45 01/14/17 19:44 Al Hydroxide/Mg Hydroxide (Mylanta II) 30 ml Q6H PRN ORAL dyspepsia 12/15/16 19:45 01/14/17 19:44 Bisacodyl (Dulcolax) 10 mg HSPRN PRN RECTAL Constipation 12/15/16 19:15 01/14/17 19:14 Dextrose STAT PRN IV Hypoglycemia 12/15/16 19:45 01/14/17 19:44 Dextrose/Sodium Chloride (D5 0.45% NS) 1,000 ml @ 75 mls/hr [id number] IV 12/15/16 21:00 01/14/17 20:59 12/16/16 10:25 Diphenhydramine HCl (Benadryl) 25 mg Q6H PRN ORAL Itching/Pruritis 12/15/16 19:45 01/14/17 19:44 Finasteride (Proscar) 5 mg DAILY ORAL 12/16/16 09:00 01/15/17 08:59 12/17/16 08:08 Heparin Sodium (Porcine) (Heparin 5000 units/ml) 5,000 units EVERY 12 HOURS SUBQ 12/15/16 21:00 01/14/17 20:59 12/17/16 08:10 Losartan Potassium (Cozaar) 25 mg DAILY ORAL 12/16/16 09:00 01/15/17 08:59 12/17/16 08:08 Magnesium Hydroxide 30 ml 30 ml HSPRN PRN ORAL Constipation 12/15/16 19:15 01/14/17 19:14 Morphine Sulfate (Morphine Sulfate) 1 mg Q4H PRN IVP For Pain 12/15/16 19:15 12/22/16 19:14 Morphine Sulfate (Morphine Sulfate) 2 mg Q4H PRN IVP Moderate Pain (Pain Scale 4-6) 12/15/16 19:15 12/22/16 19:14 12/16/16 12:24 Morphine Sulfate (Morphine Sulfate) 4 mg Q4H PRN IVP Severe Pain (Pain Scale 7-10) 12/15/16 19:15 12/22/16 19:14 12/17/16 09:55 Nitroglycerin (Ntg) 0.4 mg Q5M X 3 DOSES PRN SL Prn Chest Pain 12/15/16 19:45 01/14/17 19:44 Ondansetron HCl (Zofran) 4 mg Q6H PRN IVP Nausea & Vomiting 12/15/16 19:45 01/14/17 19:44 Pantoprazole (Protonix) 40 mg DAILY IVP 12/16/16 09:00 01/15/17 08:59 12/17/16 08:07 Piperacillin Sod/ Tazobactam Sod/ Dextrose (Zosyn/D5W) 110 ml @ 27.5 mls/hr EVERY 8 HOURS IVPB 12/15/16 22:00 12/22/16 21:59 12/17/16 04:53 Polyethylene Glycol (Miralax) 17 gm HSPRN PRN ORAL Constipation 12/15/16 19:45 01/14/17 19:44 Tamsulosin HCl (Flomax) 0.4 mg BEDTIME ORAL 12/16/16 21:00 01/15/17 20:59 12/16/16 20:53 Temazepam (Restoril) 15 mg HSPRN PRN ORAL Insomnia 12/15/16 19:45 12/22/16 19:44 Saad TrevinoFrench HospitalFlaquita Rodriguez NP Dec 17, 2016 11:25
[2016-12-17 12:00] VITALS: BP 129/91
[2016-12-17] MEDS: D5 1/2NS 1,000 ML IV SCH (13:23)
[2016-12-17 16:00] VITALS: BP 129/74
[2016-12-17 20:00] VITALS: BP 123/76
[2016-12-17] MEDS: Tamsulosin 0.4mg cap ORAL SCH (20:34)
[2016-12-18] VITALS: BP 120/74
[2016-12-18] MEDS: D5 1/2NS 1,000 ML IV SCH ×2 (02:20→15:40)
[2016-12-18] MEDS: Morphine Sulfate 4mg/ml Inj IVP PRN ×5 (03:01→22:59)
[2016-12-18 04:00] VITALS: BP 119/74
[2016-12-18] MEDS: Piperacillin/Tazobactam 3.375 GM in D5W 110 ML IVPB SCH ×3 (05:11→21:18)
[2016-12-18 08:00] VITALS: BP 120/76
[2016-12-18] MEDS: Pantoprazole Inj IVP SCH (08:39)
--- NOTE | 2016-12-18 08:39 | Diagnostic Imaging Report ---
Indications: Right lower quadrant abdominal pain for 3 days Technique: Continuous helical CT imaging of the abdomen and pelvis was performed with automatic exposure control following administration of nonionic IV contrast only, on a Siemens sensation [address] scanner. Axial, coronal, sagittal images were reconstructed at 5 mm slice thickness. No oral contrast was administered per requesting physician's order, despite no contraindications listed in either submitted clinical data or tech note.. CTDI volume(s): 16 mGy Total DLP: 809 mGy-cm Findings: Comparison: None Lack of oral contrast limits evaluation of gastrointestinal tract, nondilated throughout. Appendix not identified. Segments of left-sided colon poorly distended, limiting evaluation. Mural thickening not excludable. No additional obvious mural thickening, adjacent stranding, extraluminal gas or fluid collections identified. Gallbladder distended, contains several prominent partially calcified stones and suggestion of mild mural thickening. No adjacent stranding or fluid. Urinary bladder demonstrates apparent diffuse mural thickening, floor indented by prominent prostate. Small umbilical hernia contains only fat. Liver, pancreas, spleen, adrenal glands, kidneys, unopacified ureters, seminal vesicles, vascular structures, retroperitoneum, mesentery, remainder visualized abdominopelvic anatomy unremarkable. Pleural-based linear density right lung base. Left lung base clear.. Disc space narrowing with marginal osteophyte formation, facet hypertrophy in lumbar spine. Old, healed fracture lower right rib posteriorly. Osseous densities in musculature adjacent to proximal aspect of right femur, right ischium. IMPRESSION: Nonvisualization of appendix--no secondary evidence of acute appendicitis Distended gallbladder with stones, possible mild mural thickening. Cholecystitis not excludable. Consider abdominal ultrasound for further evaluation as clinically indicated. Apparent mural thickening of urinary bladder-to underdistention versus hypertrophy versus cystitis No other evidence of acute abdominopelvic disease, with limitation as described. Subtle but potentially significant abnormalities the gastrointestinal tract may be missed. Repeat CT scan with full oral and IV contrast preparation recommended for more complete evaluation, as clinically indicated Small fat-containing umbilical hernia Subsegmental atelectasis versus scarring right lung base Degenerative spondylosis Old right rib fracture Right hemipelvic heterotopic ossification may be posttraumatic in nature.
[2016-12-18] MEDS: Heparin 5000 units/ml inj SUBQ SCH ×2 (08:41→21:20)
[2016-12-18] MEDS: Losartan 25mg tab ORAL SCH (08:47)
--- NOTE | 2016-12-18 09:13 | Infectious Diseases Prog Note ---
Assessment/Plan Assessment/Plan A The patient is a 61-year-old male with Probable Cholecystitis, RUQ abd ain Seizure. Hypertension. History of appendectomy. History of BPH. History of right knee replacement PLAN: continue the patient on IV Zosyn day # 4 Monitor CBC. Monitor BMP. ultrasound of the abdomen and HIDA scan P Monitor blood culture Subjective Allergies: Coded Allergies: No Known Allergies (Unverified , 08/17/13) Subjective still has RUQ pain Objective Vital Signs Last 24 Hour Vital Signs Date Time Temp Pulse Resp B/P Pulse Ox O2 Delivery O2 Flow Rate FiO2 12/18/16 08:47 120/76 12/18/16 08:25 98.2 12/18/16 08:00 98.2 70 18 120/76 100 Room Air 12/18/16 04:00 97.8 73 18 119/74 97 Room Air 12/18/16 00:00 97.9 75 18 120/74 97 Room Air 12/17/16 20:00 98.2 71 20 123/76 97 Room Air 12/17/16 16:00 98.4 63 18 129/74 97 Room Air 12/17/16 12:00 97.9 72 18 129/91 98 Room Air Height (Feet): 6 Height (Inches): 1.00 Weight (Pounds): 191 HEENT: mucous membranes moist Respiratory/Chest: no respiratory distress Cardiovascular: regularly irregular Abdomen: other - RUQ tenderness Extremities: no clubbing Microbiology Date/Time Source Procedure Growth Status 12/15/16 19:20 Blood Blood Culture - Preliminary NO GROWTH AFTER 48 HOURS Resulted 12/15/16 19:00 Blood Blood Culture - Preliminary NO GROWTH AFTER 48 HOURS Resulted Current Medications Medications (Trade) Dose Ordered Sig/Agnes Route PRN Reason Start Time Stop Time Status Last Admin Dose Admin Acetaminophen (Tylenol) 650 mg Q4H PRN ORAL Mild Pain (Pain Scale 1-3) 12/15/16 19:15 01/14/17 19:14 Acetaminophen (Tylenol) 650 mg Q4H PRN ORAL fever 12/15/16 19:45 01/14/17 19:44 Al Hydroxide/Mg Hydroxide (Mylanta II) 30 ml Q6H PRN ORAL dyspepsia 12/15/16 19:45 01/14/17 19:44 Bisacodyl (Dulcolax) 10 mg HSPRN PRN RECTAL Constipation 12/15/16 19:15 01/14/17 19:14 Dextrose STAT PRN IV Hypoglycemia 12/15/16 19:45 01/14/17 19:44 Dextrose/Sodium Chloride (D5 0.45% NS) 1,000 ml @ 75 mls/hr [id number] IV 12/15/16 21:00 01/14/17 20:59 12/17/16 13:23 Diphenhydramine HCl (Benadryl) 25 mg Q6H PRN ORAL Itching/Pruritis 12/15/16 19:45 01/14/17 19:44 Finasteride (Proscar) 5 mg DAILY ORAL 12/16/16 09:00 01/15/17 08:59 12/18/16 08:39 Heparin Sodium (Porcine) (Heparin 5000 units/ml) 5,000 units EVERY 12 HOURS SUBQ 12/15/16 21:00 01/14/17 20:59 12/18/16 08:41 Losartan Potassium (Cozaar) 25 mg DAILY ORAL 12/16/16 09:00 01/15/17 08:59 12/17/16 08:08 Magnesium Hydroxide 30 ml 30 ml HSPRN PRN ORAL Constipation 12/15/16 19:15 01/14/17 19:14 Morphine Sulfate (Morphine Sulfate) 1 mg Q4H PRN IVP For Pain 12/15/16 19:15 12/22/16 19:14 Morphine Sulfate (Morphine Sulfate) 2 mg Q4H PRN IVP Moderate Pain (Pain Scale 4-6) 12/15/16 19:15 12/22/16 19:14 12/16/16 12:24 Morphine Sulfate (Morphine Sulfate) 4 mg Q4H PRN IVP Severe Pain (Pain Scale 7-10) 12/15/16 19:15 12/22/16 19:14 12/18/16 07:55 Nitroglycerin (Ntg) 0.4 mg Q5M X 3 DOSES PRN SL Prn Chest Pain 12/15/16 19:45 01/14/17 19:44 Ondansetron HCl (Zofran) 4 mg Q6H PRN IVP Nausea & Vomiting 12/15/16 19:45 01/14/17 19:44 Pantoprazole (Protonix) 40 mg DAILY IVP 12/16/16 09:00 01/15/17 08:59 12/18/16 08:39 Piperacillin Sod/ Tazobactam Sod/ Dextrose (Zosyn/D5W) 110 ml @ 27.5 mls/hr EVERY 8 HOURS IVPB 12/15/16 22:00 12/22/16 21:59 12/18/16 05:11 Polyethylene Glycol (Miralax) 17 gm HSPRN PRN ORAL Constipation 12/15/16 19:45 01/14/17 19:44 Tamsulosin HCl (Flomax) 0.4 mg BEDTIME ORAL 12/16/16 21:00 01/15/17 20:59 12/17/16 20:34 Temazepam (Restoril) 15 mg HSPRN PRN ORAL Insomnia 12/15/16 19:45 12/22/16 19:44 BABATUNDE BRAGG M.D. Dec 18, 2016 09:13
--- NOTE | 2016-12-18 10:38 | GI Initial Consult Note ---
History of Present Illness General Date patient seen: Dec 18, 2016 Time patient seen: 10:30 Reason for Hospitalization: Abdominal Pain Referring physician: WU CABRERA Reason for Consultation: ABDOMINAL PAIN Present Illness HPI 61 y/old male presented with c/o right sided mid abdominal pain x 3 days patient was afebrile, stable VS No leukocytosis, stable LFT CT A/P scan with very distended gallbladder, wall thickening, brennen-cholecystic fluid, and large gallstone in neck of gallbladder. surgeon seen patient in ED, on exam demonstrated + Patel sign Given results of CT scan, physical exam, and pain for 72hrs that had not yet resolved, patient was admitted for monitoring and further evaluation. GI Consult. HPI as noted. GI consulted for abdominal pain. Pt presents today with mild anemia and elevated total bilirubin. CT reviewed shows distended gallbladder with wall thickening. Patient pending HIDA scan today. The patient has no history of any endoscopic procedure. Currently being monitored and continues to complain of abdominal pain. No c/o of N/V/D. Home Meds Reported Medications Gabapentin* (GABAPENTIN*) 100 Mg Capsule, ORAL THREE TIMES A DAY, CAP 12/15/16 Finasteride* (PROSCAR*) 5 Mg Tablet, ORAL DAILY, #30 TAB 0 Refills 12/15/16 Tamsulosin Hcl (TAMSULOSIN HCL*) 0.4 Mg Cap.er.24h, ORAL BEDTIME, CAP 12/15/16 Losartan Potassium* (LOSARTAN POTASSIUM*) 25 Mg Tablet, ORAL DAILY, TAB 12/15/16 No Known Medications* (NKM - No Known Medications*) ., 0 ., 0 Refills 09/15/13 Discontinued Scripts Tamsulosin HCl (Flomax) 0.4 Mg Cap, 0.4 MG ORAL DAILY, #30 CAP 0 Refills Prov:Mo Lacey PA-C 09/04/13 Nitrofurantoin Monohyd/M-Cryst (Nitrofurantoin [place]-Mcr 100 mg) 100 Mg Cap, 100 MG ORAL Q12H for 7 Days, CAP Prov:Mo Lacey PA-C 09/04/13 Med list reviewed/reconciled: Yes Allergies: Coded Allergies: No Known Allergies (Unverified , 08/17/13) Patient History History Provided By: Patient, Medical Record H Narrative (1) HTN (hypertension) (2) BPH (benign prostatic hyperplasia) (3) Urinary Retention (4) hematuria Review of Systems All Other Systems: negative except mentioned in HPI Physical Exam Vital Signs Date Time Temp Pulse Resp B/P Pulse Ox O2 Delivery O2 Flow Rate FiO2 12/15/16 13:11 98.1 87 14 123/87 97 Room Air Sp02 EP Interpretation: reviewed General Appearance: well appearing, no apparent distress, alert Head: normocephalic EENT: normal ENT inspection Neck: supple Respiratory: normal breath sounds, no respiratory distress Cardiovascular: normal rate Gastrointestinal: non tender, normal bowel sounds, other - RUQ abdominal pain Rectal: deferred Genitourinary: no CVA tenderness Neurologic: normal inspection, alert, oriented x3, responsive Psychiatric: normal inspection, judgement/insight normal, memory normal Skin: normal color, no rash Lymphatic: normal inspection, no adenopathy Current Medications Current Medications Medications (Trade) Dose Ordered Sig/Agnes Route PRN Reason Start Time Stop Time Status Last Admin Dose Admin Acetaminophen (Tylenol) 650 mg Q4H PRN ORAL Mild Pain (Pain Scale 1-3) 12/15/16 19:15 01/14/17 19:14 Acetaminophen (Tylenol) 650 mg Q4H PRN ORAL fever 12/15/16 19:45 01/14/17 19:44 Al Hydroxide/Mg Hydroxide (Mylanta II) 30 ml Q6H PRN ORAL dyspepsia 12/15/16 19:45 01/14/17 19:44 Bisacodyl (Dulcolax) 10 mg HSPRN PRN RECTAL Constipation 12/15/16 19:15 01/14/17 19:14 Dextrose STAT PRN IV Hypoglycemia 12/15/16 19:45 01/14/17 19:44 Dextrose/Sodium Chloride (D5 0.45% NS) 1,000 ml @ 75 mls/hr [id number] IV 12/15/16 21:00 01/14/17 20:59 12/17/16 13:23 Diphenhydramine HCl (Benadryl) 25 mg Q6H PRN ORAL Itching/Pruritis 12/15/16 19:45 01/14/17 19:44 Finasteride (Proscar) 5 mg DAILY ORAL 12/16/16 09:00 01/15/17 08:59 12/18/16 08:39 Heparin Sodium (Porcine) (Heparin 5000 units/ml) 5,000 units EVERY 12 HOURS SUBQ 12/15/16 21:00 01/14/17 20:59 12/18/16 08:41 Losartan Potassium (Cozaar) 25 mg DAILY ORAL 12/16/16 09:00 01/15/17 08:59 12/17/16 08:08 Magnesium Hydroxide 30 ml 30 ml HSPRN PRN ORAL Constipation 12/15/16 19:15 01/14/17 19:14 Morphine Sulfate (Morphine Sulfate) 1 mg Q4H PRN IVP For Pain 12/15/16 19:15 12/22/16 19:14 Morphine Sulfate (Morphine Sulfate) 2 mg Q4H PRN IVP Moderate Pain (Pain Scale 4-6) 12/15/16 19:15 12/22/16 19:14 12/16/16 12:24 Morphine Sulfate (Morphine Sulfate) 4 mg Q4H PRN IVP Severe Pain (Pain Scale 7-10) 12/15/16 19:15 12/22/16 19:14 12/18/16 07:55 Nitroglycerin (Ntg) 0.4 mg Q5M X 3 DOSES PRN SL Prn Chest Pain 12/15/16 19:45 01/14/17 19:44 Ondansetron HCl (Zofran) 4 mg Q6H PRN IVP Nausea & Vomiting 12/15/16 19:45 01/14/17 19:44 Pantoprazole (Protonix) 40 mg DAILY IVP 12/16/16 09:00 01/15/17 08:59 12/18/16 08:39 Piperacillin Sod/ Tazobactam Sod/ Dextrose (Zosyn/D5W) 110 ml @ 27.5 mls/hr EVERY 8 HOURS IVPB 12/15/16 22:00 12/22/16 21:59 12/18/16 05:11 Polyethylene Glycol (Miralax) 17 gm HSPRN PRN ORAL Constipation 12/15/16 19:45 01/14/17 19:44 Tamsulosin HCl (Flomax) 0.4 mg BEDTIME ORAL 12/16/16 21:00 01/15/17 20:59 12/17/16 20:34 Temazepam (Restoril) 15 mg HSPRN PRN ORAL Insomnia 12/15/16 19:45 12/22/16 19:44 GI: Plan Problems: (1) Anemia (2) LFT elevation (3) Abdominal pain Plan APCT reviewed >> Distended gallbladder with stones, possible mild mural thickening. fu abdominal U/S HIDA pending today pt still has abdominal pain lipase WNL fu surgical recs maintain NPO + IVFs anemia work up pain mgmt ppi fu labs recommend outpatient colonoscopy Discussed with Dr. Andrew. Thank you for referring this patient, we will follow. Acacia Bright N.P. Dec 18, 2016 10:38
[2016-12-18] MEDS ORDERED: Morphine Sulfate 2mg/ml Inj IVP ONE (11:45)
[2016-12-18 13:35] VITALS: BP 134/86
--- NOTE | 2016-12-18 14:48 | Diagnostic Imaging Report ---
Indications: Right upper quadrant abdominal pain, gallbladder distention with stones on ultrasound Technique: 6.6 mCi 99 M technetium-Choletec were administered intravenously. Immediate serial planar imaging of the abdomen was performed in anterior projection for a duration of 90 minutes. Oblique and lateral images obtained at 90 minutes. Morphine sulfate 2 mg administered IV at 60 minutes. Findings: Comparison: Hepatic parenchymal uptake of radiotracer is prompt and homogeneous. Excreted radiotracer is first seen in the bile ducts at 7-9 minutes, and in the small bowel at 10-12 minutes. No gallbladder activity demonstrated by 90 minutes. There is normal, gradual decrease in hepatic parenchymal activity throughout the course of the exam. IMPRESSION: Nonvisualization of gallbladder--compatible with but nonspecific for cystic duct obstruction. Gallbladder stasis may also give this appearance.. Patent common bile duct. Hepatocellular excretory function intact.
[2016-12-18 16:14] VITALS: BP 129/72
[2016-12-18] MEDS ORDERED: D5 1/2NS 1000ml IV ONE (16:38)
--- NOTE | 2016-12-18 17:16 | General Surgery Progress Note ---
General Surgery-Progress Note Subjective Symptoms: pain same, tolerating diet, passing flatus Additional Comments patient seen and examined at bedside. continues to have right upper quadrant abdominal pain. pending HIDA today which was completed and demonstrated non visualization of gallbladder likely cystic duct obstruction. Objective Last 24 Hour Vital Signs Date Time Temp Pulse Resp B/P Pulse Ox O2 Delivery O2 Flow Rate FiO2 12/18/16 16:14 98.2 72 18 129/72 97 Room Air 12/18/16 15:05 97.0 12/18/16 13:35 97.0 76 18 134/86 97 Room Air 12/18/16 12:21 98.2 12/18/16 08:47 120/76 12/18/16 08:00 98.2 70 18 120/76 100 Room Air 12/18/16 04:00 97.8 73 18 119/74 97 Room Air 12/18/16 00:00 97.9 75 18 120/74 97 Room Air 12/17/16 20:00 98.2 71 20 123/76 97 Room Air I&O Intake and Output 12/17/16 12/18/16 19:00 07:00 Intake Total 960.0 ml 587.5 ml Balance 960.0 ml 587.5 ml Intake Oral 600 ml IV Total 360.0 ml 587.5 ml # Voids 5 3 Cardiovascular: RSR Respiratory: clear Abdomen: soft, tenderness, present bowel sounds Extremities: no edema, no tenderness, no cyanosis Plan Problems: (1) Cholecystitis Assessment & Plan: 61M acute cholecystitis. HIDA was performed today with non visualization of gallbladder. likely cystic duct obstruction. continues to have pain in RUQ and tenderness on exam. Afebrile, HD stable, mild elevation of t bili. t bili 1.3 today from 1.4 yesterday. Will schedule for lap vs open matthieu soon. repeat LFT's tomorrow. if t bili trending down will schedule for surgery soon after. if t bili does not trend down will discuss with GI about ERCP Next available OR time will be either sun or . okay for diet now will make npo once scheduled. Serafin Mcdonough Dec 18, 2016 17:16
--- NOTE | 2016-12-18 19:13 | Pulmonology Progress Note ---
Assessment/Plan Problems: (1) Cholecystitis (2) LFT elevation (3) BPH (benign prostatic hyperplasia) (4) HTN (hypertension) Assessment/Plan continue abx surgery yrn, check electroltyes dvt prophylaxis Subjective ROS Limited/Unobtainable: No Allergies: Coded Allergies: No Known Allergies (Unverified , 08/17/13) Objective Last 24 Hour Vital Signs Date Time Temp Pulse Resp B/P Pulse Ox O2 Delivery O2 Flow Rate FiO2 12/18/16 16:14 98.2 72 18 129/72 97 Room Air 12/18/16 15:05 97.0 12/18/16 13:35 97.0 76 18 134/86 97 Room Air 12/18/16 12:21 98.2 12/18/16 08:47 120/76 12/18/16 08:00 98.2 70 18 120/76 100 Room Air 12/18/16 04:00 97.8 73 18 119/74 97 Room Air 12/18/16 00:00 97.9 75 18 120/74 97 Room Air 12/17/16 20:00 98.2 71 20 123/76 97 Room Air Intake and Output 12/17/16 12/18/16 19:00 07:00 Intake Total 960.0 ml 587.5 ml Balance 960.0 ml 587.5 ml Intake Oral 600 ml IV Total 360.0 ml 587.5 ml # Voids 5 3 Objective General Appearance: WD/WN HEENT: normocephalic, atraumatic Respiratory/Chest: chest wall non-tender, lungs clear Cardiovascular: normal peripheral pulses, normal rate Abdomen: normal bowel sounds, soft, non tender, no organomegaly Extremities: no cyanosis, no clubbing Skin: no rash Microbiology Date/Time Source Procedure Growth Status 12/15/16 19:20 Blood Blood Culture - Preliminary NO GROWTH AFTER 48 HOURS Resulted Current Medications Medications (Trade) Dose Ordered Sig/Agnes Route PRN Reason Start Time Stop Time Status Last Admin Dose Admin Acetaminophen (Tylenol) 650 mg Q4H PRN ORAL Mild Pain (Pain Scale 1-3) 12/15/16 19:15 01/14/17 19:14 Acetaminophen (Tylenol) 650 mg Q4H PRN ORAL fever 12/15/16 19:45 01/14/17 19:44 Al Hydroxide/Mg Hydroxide (Mylanta II) 30 ml Q6H PRN ORAL dyspepsia 12/15/16 19:45 01/14/17 19:44 Bisacodyl (Dulcolax) 10 mg HSPRN PRN RECTAL Constipation 12/15/16 19:15 01/14/17 19:14 Dextrose STAT PRN IV Hypoglycemia 12/15/16 19:45 01/14/17 19:44 Dextrose/Sodium Chloride (D5 0.45% NS) 1,000 ml @ 75 mls/hr [id number] IV 12/15/16 21:00 01/14/17 20:59 12/17/16 13:23 Diphenhydramine HCl (Benadryl) 25 mg Q6H PRN ORAL Itching/Pruritis 12/15/16 19:45 01/14/17 19:44 Finasteride (Proscar) 5 mg DAILY ORAL 12/16/16 09:00 01/15/17 08:59 12/18/16 08:39 Heparin Sodium (Porcine) (Heparin 5000 units/ml) 5,000 units EVERY 12 HOURS SUBQ 12/15/16 21:00 01/14/17 20:59 12/18/16 08:41 Losartan Potassium (Cozaar) 25 mg DAILY ORAL 12/16/16 09:00 01/15/17 08:59 12/17/16 08:08 Magnesium Hydroxide 30 ml 30 ml HSPRN PRN ORAL Constipation 12/15/16 19:15 01/14/17 19:14 Morphine Sulfate (Morphine Sulfate) 1 mg Q4H PRN IVP For Pain 12/15/16 19:15 12/22/16 19:14 Morphine Sulfate (Morphine Sulfate) 2 mg Q4H PRN IVP Moderate Pain (Pain Scale 4-6) 12/15/16 19:15 12/22/16 19:14 12/16/16 12:24 Morphine Sulfate (Morphine Sulfate) 4 mg Q4H PRN IVP Severe Pain (Pain Scale 7-10) 12/15/16 19:15 12/22/16 19:14 12/18/16 18:42 Nitroglycerin (Ntg) 0.4 mg Q5M X 3 DOSES PRN SL Prn Chest Pain 12/15/16 19:45 01/14/17 19:44 Ondansetron HCl (Zofran) 4 mg Q6H PRN IVP Nausea & Vomiting 12/15/16 19:45 01/14/17 19:44 Pantoprazole (Protonix) 40 mg DAILY IVP 12/16/16 09:00 01/15/17 08:59 12/18/16 08:39 Piperacillin Sod/ Tazobactam Sod/ Dextrose (Zosyn/D5W) 110 ml @ 27.5 mls/hr EVERY 8 HOURS IVPB 12/15/16 22:00 12/22/16 21:59 12/18/16 14:35 Polyethylene Glycol (Miralax) 17 gm HSPRN PRN ORAL Constipation 12/15/16 19:45 01/14/17 19:44 Tamsulosin HCl (Flomax) 0.4 mg BEDTIME ORAL 12/16/16 21:00 01/15/17 20:59 12/17/16 20:34 Temazepam (Restoril) 15 mg HSPRN PRN ORAL Insomnia 12/15/16 19:45 12/22/16 19:44 WU CABRERA Dec 18, 2016 19:13
[2016-12-18 20:00] VITALS: BP 122/70
[2016-12-18] MEDS: Tamsulosin 0.4mg cap ORAL SCH (21:18)
[2016-12-19] VITALS: BP 129/76
[2016-12-19 04:00] VITALS: BP 123/74
[2016-12-19] MEDS: D5 1/2NS 1,000 ML IV SCH ×2 (05:00→18:20)
[2016-12-19] MEDS: Piperacillin/Tazobactam 3.375 GM in D5W 110 ML IVPB SCH ×3 (05:01→22:12)
[2016-12-19] MEDS: Morphine Sulfate 4mg/ml Inj IVP PRN ×4 (05:01→19:53)
[2016-12-19 07:05] LABS: BASOPHILS % (AUTO) 0.9 % (0.0-2.0); EOSINOPHILS % (AUTO) 0.4 % (0.0-3.0); LYMPHOCYTES % (AUTO) 17.7 % (20.0-45.0); MEAN CORPUSCULAR HEMOGLOBIN 32.3 PG (27.0-31.0); MEAN CORPUSCULAR HGB CONC 33.2 G/DL (32.0-36.0); MEAN CORPUSCULAR VOLUME 97 FL (80-99); MEAN PLATELET VOLUME 6.1 FL (6.5-10.1); MONOCYTES % (AUTO) 13.9 % (1.0-10.0); NEUTROPHILS % (AUTO) 67.1 % (45.0-75.0); PLATELET COUNT 301 K/UL (150-450); RED BLOOD COUNT 3.52 M/UL (4.70-6.10); WHITE BLOOD COUNT 9.2 K/UL (4.8-10.8)
[2016-12-19 07:16] LABS: ALANINE AMINOTRANSFERASE 5 U/L (3-41); ALBUMIN/GLOBULIN RATIO 0.9 (1.0-2.7); ANION GAP 17 (5-15); ASPARTATE AMINO TRANSFERASE 10 U/L (5-40); CALCIUM 8.9 mg/dL (8.6-10.2); CARBON DIOXIDE 25 mEQ/L (20-30); CHLORIDE 94 mEQ/L (98-107); CREATININE 1.2 mg/dL (0.7-1.2); FERRITIN 179 ng/mL (10-230); GLOMERULAR FILTRATION RATE > 60 mL/min (>60); POTASSIUM 3.8 mEQ/L (3.4-4.9); SODIUM 136 mEQ/L (135-145); TOTAL PROTEIN 7.3 g/dL (6.6-8.7)
[2016-12-19 07:37] LABS: HEMOLYSIS 0; IRON 14 ug/dL (59-158); TOTAL IRON BINDING CAPACITY 254 ug/dL (250-400)
[2016-12-19 08:31] VITALS: BP 108/58
[2016-12-19] MEDS: Losartan 25mg tab ORAL SCH (09:00)
[2016-12-19] MEDS: Pantoprazole Inj IVP SCH (09:05)
[2016-12-19] MEDS: Heparin 5000 units/ml inj SUBQ SCH ×2 (09:14→19:55)
--- NOTE | 2016-12-19 09:59 | Infectious Diseases Prog Note ---
Assessment/Plan Assessment/Plan A The patient is a 61-year-old male with Cholecystitis, HIDA " Nonvisualization of gallbladder RUQ abd ain Seizure. Hypertension. History of appendectomy. History of BPH. History of right knee replacement PLAN: continue the patient on IV Zosyn day # 5 / 7 Monitor CBC. Monitor BMP. Monitor blood culture await plan of Sx Subjective Constitutional: Denies: anorexia, chills, drenching sweats, fatigue, fever, no symptoms, other Allergies: Coded Allergies: No Known Allergies (Unverified , 08/17/13) Subjective still has RUQ pain Objective Vital Signs Last 24 Hour Vital Signs Date Time Temp Pulse Resp B/P Pulse Ox O2 Delivery O2 Flow Rate FiO2 12/19/16 09:36 97.0 12/19/16 09:00 108/58 12/19/16 08:31 97.0 78 20 108/58 98 Room Air 12/19/16 04:00 98.0 78 18 123/74 98 Room Air 12/19/16 00:00 97.7 77 17 129/76 98 Room Air 12/18/16 20:00 97.1 75 18 122/70 99 Room Air 12/18/16 16:14 98.2 72 18 129/72 97 Room Air 12/18/16 13:35 97.0 76 18 134/86 97 Room Air 12/18/16 12:21 98.2 Height (Feet): 6 Height (Inches): 1.00 Weight (Pounds): 191 HEENT: mucous membranes moist Respiratory/Chest: no respiratory distress Cardiovascular: regularly irregular Abdomen: non distended Laboratory Tests Test 12/19/16 05:20 White Blood Count 9.2 K/UL (4.8-10.8) Red Blood Count 3.52 M/UL (4.70-6.10) L Hemoglobin 11.4 G/DL (14.2-18.0) L Hematocrit 34.2 % (42.0-52.0) L Mean Corpuscular Volume 97 FL (80-99) Mean Corpuscular Hemoglobin 32.3 PG (27.0-31.0) H Mean Corpuscular Hemoglobin Concent 33.2 G/DL (32.0-36.0) Red Cell Distribution Width 12.0 % (11.6-14.8) Platelet Count 301 K/UL (150-450) Mean Platelet Volume 6.1 FL (6.5-10.1) L Neutrophils (%) (Auto) 67.1 % (45.0-75.0) Lymphocytes (%) (Auto) 17.7 % (20.0-45.0) L Monocytes (%) (Auto) 13.9 % (1.0-10.0) H Eosinophils (%) (Auto) 0.4 % (0.0-3.0) Basophils (%) (Auto) 0.9 % (0.0-2.0) Reticulocyte Count Pending Sodium Level 136 mEQ/L (135-145) Potassium Level 3.8 mEQ/L (3.4-4.9) Chloride Level 94 mEQ/L (98-107) L Carbon Dioxide Level 25 mEQ/L (20-30) Anion Gap 17 (5-15) H Blood Urea Nitrogen 10 mg/dL (7-23) Creatinine 1.2 mg/dL (0.7-1.2) Estimat Glomerular Filtration Rate > 60 mL/min (>60) Glucose Level 90 mg/dL (74-106) Calcium Level 8.9 mg/dL (8.6-10.2) Iron Level 14 ug/dL (59-158) L Total Iron Binding Capacity 254 ug/dL (250-400) Percent Iron Saturation 6 % (15-50) L Unsaturated Iron Binding 240 ug/dL (112-346) Ferritin 179 ng/mL (10-230) Total Bilirubin 1.0 mg/dL (0.0-1.2) Aspartate Amino Transf (AST/SGOT) 10 U/L (5-40) Alanine Aminotransferase (ALT/SGPT) 5 U/L (3-41) Alkaline Phosphatase 55 U/L (40-129) Total Protein 7.3 g/dL (6.6-8.7) Albumin 3.5 g/dL (3.5-5.2) Globulin 3.8 g/dL Albumin/Globulin Ratio 0.9 (1.0-2.7) L Carcinoembryonic Antigen 1.4 ng/mL Vitamin B12 Level 277 pg/mL (211-946) Folate Pending Thyroid Stimulating Hormone (TSH) 3.380 uIU/mL (0.300-4.500) Free Thyroxine 1.31 ng/dL (0.86-1.85) Current Medications Medications (Trade) Dose Ordered Sig/Agnes Route PRN Reason Start Time Stop Time Status Last Admin Dose Admin Acetaminophen (Tylenol) 650 mg Q4H PRN ORAL Mild Pain (Pain Scale 1-3) 12/15/16 19:15 01/14/17 19:14 Acetaminophen (Tylenol) 650 mg Q4H PRN ORAL fever 12/15/16 19:45 01/14/17 19:44 Al Hydroxide/Mg Hydroxide (Mylanta II) 30 ml Q6H PRN ORAL dyspepsia 12/15/16 19:45 01/14/17 19:44 Bisacodyl (Dulcolax) 10 mg HSPRN PRN RECTAL Constipation 12/15/16 19:15 01/14/17 19:14 Dextrose STAT PRN IV Hypoglycemia 12/15/16 19:45 01/14/17 19:44 Dextrose/Sodium Chloride (D5 0.45% NS) 1,000 ml @ 75 mls/hr [id number] IV 12/15/16 21:00 01/14/17 20:59 12/17/16 13:23 Diphenhydramine HCl (Benadryl) 25 mg Q6H PRN ORAL Itching/Pruritis 12/15/16 19:45 01/14/17 19:44 Finasteride (Proscar) 5 mg DAILY ORAL 12/16/16 09:00 01/15/17 08:59 12/19/16 09:06 Heparin Sodium (Porcine) (Heparin 5000 units/ml) 5,000 units EVERY 12 HOURS SUBQ 12/15/16 21:00 01/14/17 20:59 12/19/16 09:14 Losartan Potassium (Cozaar) 25 mg DAILY ORAL 12/16/16 09:00 01/15/17 08:59 12/17/16 08:08 Magnesium Hydroxide 30 ml 30 ml HSPRN PRN ORAL Constipation 12/15/16 19:15 01/14/17 19:14 Morphine Sulfate (Morphine Sulfate) 1 mg Q4H PRN IVP For Pain 12/15/16 19:15 12/22/16 19:14 Morphine Sulfate (Morphine Sulfate) 2 mg Q4H PRN IVP Moderate Pain (Pain Scale 4-6) 12/15/16 19:15 12/22/16 19:14 12/16/16 12:24 Morphine Sulfate (Morphine Sulfate) 4 mg Q4H PRN IVP Severe Pain (Pain Scale 7-10) 12/15/16 19:15 12/22/16 19:14 12/19/16 09:06 Nitroglycerin (Ntg) 0.4 mg Q5M X 3 DOSES PRN SL Prn Chest Pain 12/15/16 19:45 01/14/17 19:44 Ondansetron HCl (Zofran) 4 mg Q6H PRN IVP Nausea & Vomiting 12/15/16 19:45 01/14/17 19:44 Pantoprazole (Protonix) 40 mg DAILY IVP 12/16/16 09:00 01/15/17 08:59 12/19/16 09:05 Piperacillin Sod/ Tazobactam Sod/ Dextrose (Zosyn/D5W) 110 ml @ 27.5 mls/hr EVERY 8 HOURS IVPB 12/15/16 22:00 12/22/16 21:59 12/19/16 05:01 Polyethylene Glycol (Miralax) 17 gm HSPRN PRN ORAL Constipation 12/15/16 19:45 01/14/17 19:44 Tamsulosin HCl (Flomax) 0.4 mg BEDTIME ORAL 12/16/16 21:00 01/15/17 20:59 12/18/16 21:18 Temazepam (Restoril) 15 mg HSPRN PRN ORAL Insomnia 12/15/16 19:45 12/22/16 19:44 BABATUNDE BRAGG M.D. Dec 19, 2016 09:59
--- NOTE | 2016-12-19 11:06 | General Surgery Progress Note ---
General Surgery-Progress Note Subjective Symptoms: pain same, tolerating diet, passing flatus Additional Comments doing well. no new events. still having RUQ pain. Objective Last 24 Hour Vital Signs Date Time Temp Pulse Resp B/P Pulse Ox O2 Delivery O2 Flow Rate FiO2 12/19/16 09:36 97.0 12/19/16 09:00 108/58 12/19/16 08:31 97.0 78 20 108/58 98 Room Air 12/19/16 04:00 98.0 78 18 123/74 98 Room Air 12/19/16 00:00 97.7 77 17 129/76 98 Room Air 12/18/16 20:00 97.1 75 18 122/70 99 Room Air 12/18/16 16:14 98.2 72 18 129/72 97 Room Air 12/18/16 13:35 97.0 76 18 134/86 97 Room Air 12/18/16 12:21 98.2 I&O Intake and Output 12/18/16 12/19/16 19:00 07:00 Intake Total 600.0 ml 882.5 ml Balance 600.0 ml 882.5 ml Intake Oral 360 ml 400 ml IV Total 240.0 ml 482.5 ml # Voids 2 3 Cardiovascular: RSR Respiratory: clear Abdomen: soft, tenderness, present bowel sounds Laboratory Tests Test 12/19/16 05:20 White Blood Count 9.2 K/UL (4.8-10.8) Red Blood Count 3.52 M/UL (4.70-6.10) L Hemoglobin 11.4 G/DL (14.2-18.0) L Hematocrit 34.2 % (42.0-52.0) L Mean Corpuscular Volume 97 FL (80-99) Mean Corpuscular Hemoglobin 32.3 PG (27.0-31.0) H Mean Corpuscular Hemoglobin Concent 33.2 G/DL (32.0-36.0) Red Cell Distribution Width 12.0 % (11.6-14.8) Platelet Count 301 K/UL (150-450) Mean Platelet Volume 6.1 FL (6.5-10.1) L Neutrophils (%) (Auto) 67.1 % (45.0-75.0) Lymphocytes (%) (Auto) 17.7 % (20.0-45.0) L Monocytes (%) (Auto) 13.9 % (1.0-10.0) H Eosinophils (%) (Auto) 0.4 % (0.0-3.0) Basophils (%) (Auto) 0.9 % (0.0-2.0) Reticulocyte Count Pending Sodium Level 136 mEQ/L (135-145) Potassium Level 3.8 mEQ/L (3.4-4.9) Chloride Level 94 mEQ/L (98-107) L Carbon Dioxide Level 25 mEQ/L (20-30) Anion Gap 17 (5-15) H Blood Urea Nitrogen 10 mg/dL (7-23) Creatinine 1.2 mg/dL (0.7-1.2) Estimat Glomerular Filtration Rate > 60 mL/min (>60) Glucose Level 90 mg/dL (74-106) Calcium Level 8.9 mg/dL (8.6-10.2) Iron Level 14 ug/dL (59-158) L Total Iron Binding Capacity 254 ug/dL (250-400) Percent Iron Saturation 6 % (15-50) L Unsaturated Iron Binding 240 ug/dL (112-346) Ferritin 179 ng/mL (10-230) Total Bilirubin 1.0 mg/dL (0.0-1.2) Aspartate Amino Transf (AST/SGOT) 10 U/L (5-40) Alanine Aminotransferase (ALT/SGPT) 5 U/L (3-41) Alkaline Phosphatase 55 U/L (40-129) Total Protein 7.3 g/dL (6.6-8.7) Albumin 3.5 g/dL (3.5-5.2) Globulin 3.8 g/dL Albumin/Globulin Ratio 0.9 (1.0-2.7) L Carcinoembryonic Antigen 1.4 ng/mL Vitamin B12 Level 277 pg/mL (211-946) Folate Pending Thyroid Stimulating Hormone (TSH) 3.380 uIU/mL (0.300-4.500) Free Thyroxine 1.31 ng/dL (0.86-1.85) Plan Problems: (1) Cholecystitis Assessment & Plan: 61M acute cholecystitis. HIDA was performed today with non visualization of gallbladder. likely cystic duct obstruction. continues to have pain in RUQ and tenderness on exam. Afebrile, HD stable, labs improved. Will schedule for lap vs open matthieu Next available time is afternoon. NPO p MN Sunday evening. okay for diet now Serafin Mcdonough Dec 19, 2016 11:06
[2016-12-19 11:37] LABS: RETICULOCYTE COUNT 0.4 % (0.0-2.0)
[2016-12-19 12:04] VITALS: BP 129/85
--- NOTE | 2016-12-19 14:40 | GI Progress Note ---
Assessment/Plan Problems: (1) LFT elevation ICD Codes: R94.5 - Abnormal results of liver function studies SNOMED: 664363745 (2) Anemia ICD Codes: D64.9 - Anemia, unspecified SNOMED: 224001996 (3) Cholecystitis ICD Codes: K81.9 - Cholecystitis, unspecified SNOMED: 10010008, 46059599 (4) Abdominal pain ICD Codes: R10.9 - Unspecified abdominal pain SNOMED: 02279118, 69638326 Qualifiers: Qualified Codes: R10.11 - Right upper quadrant pain Status: stable Status Narrative Discussed with Dr. Andrew. Assessment/Plan APCT reviewed >> Distended gallbladder with stones, possible mild mural thickening. fu abdominal U/S HIDA reviewed >> cystic duct obstruction lipase WNL iron deficiency >> venofer cholecystectomy scheduled this , see surgical note. regular diet pain mgmt ppi fu labs Subjective Subjective abdominal pain Objective Last 24 Hour Vital Signs Date Time Temp Pulse Resp B/P Pulse Ox O2 Delivery O2 Flow Rate FiO2 12/19/16 12:04 98.4 75 20 129/85 97 Room Air 12/19/16 09:36 97.0 12/19/16 09:00 108/58 12/19/16 08:31 97.0 78 20 108/58 98 Room Air 12/19/16 04:00 98.0 78 18 123/74 98 Room Air 12/19/16 00:00 97.7 77 17 129/76 98 Room Air 12/18/16 20:00 97.1 75 18 122/70 99 Room Air 12/18/16 16:14 98.2 72 18 129/72 97 Room Air Intake and Output 12/18/16 12/19/16 19:00 07:00 Intake Total 600.0 ml 882.5 ml Balance 600.0 ml 882.5 ml Intake Oral 360 ml 400 ml IV Total 240.0 ml 482.5 ml # Voids 2 3 Laboratory Tests Test 12/19/16 05:20 White Blood Count 9.2 K/UL (4.8-10.8) Red Blood Count 3.52 M/UL (4.70-6.10) L Hemoglobin 11.4 G/DL (14.2-18.0) L Hematocrit 34.2 % (42.0-52.0) L Mean Corpuscular Volume 97 FL (80-99) Mean Corpuscular Hemoglobin 32.3 PG (27.0-31.0) H Mean Corpuscular Hemoglobin Concent 33.2 G/DL (32.0-36.0) Red Cell Distribution Width 12.0 % (11.6-14.8) Platelet Count 301 K/UL (150-450) Mean Platelet Volume 6.1 FL (6.5-10.1) L Neutrophils (%) (Auto) 67.1 % (45.0-75.0) Lymphocytes (%) (Auto) 17.7 % (20.0-45.0) L Monocytes (%) (Auto) 13.9 % (1.0-10.0) H Eosinophils (%) (Auto) 0.4 % (0.0-3.0) Basophils (%) (Auto) 0.9 % (0.0-2.0) Reticulocyte Count 0.4 % (0.0-2.0) Sodium Level 136 mEQ/L (135-145) Potassium Level 3.8 mEQ/L (3.4-4.9) Chloride Level 94 mEQ/L (98-107) L Carbon Dioxide Level 25 mEQ/L (20-30) Anion Gap 17 (5-15) H Blood Urea Nitrogen 10 mg/dL (7-23) Creatinine 1.2 mg/dL (0.7-1.2) Estimat Glomerular Filtration Rate > 60 mL/min (>60) Glucose Level 90 mg/dL (74-106) Calcium Level 8.9 mg/dL (8.6-10.2) Iron Level 14 ug/dL (59-158) L Total Iron Binding Capacity 254 ug/dL (250-400) Percent Iron Saturation 6 % (15-50) L Unsaturated Iron Binding 240 ug/dL (112-346) Ferritin 179 ng/mL (10-230) Total Bilirubin 1.0 mg/dL (0.0-1.2) Aspartate Amino Transf (AST/SGOT) 10 U/L (5-40) Alanine Aminotransferase (ALT/SGPT) 5 U/L (3-41) Alkaline Phosphatase 55 U/L (40-129) Total Protein 7.3 g/dL (6.6-8.7) Albumin 3.5 g/dL (3.5-5.2) Globulin 3.8 g/dL Albumin/Globulin Ratio 0.9 (1.0-2.7) L Carcinoembryonic Antigen 1.4 ng/mL Vitamin B12 Level 277 pg/mL (211-946) Folate Pending Thyroid Stimulating Hormone (TSH) 3.380 uIU/mL (0.300-4.500) Free Thyroxine 1.31 ng/dL (0.86-1.85) Height (Feet): 6 Height (Inches): 1.00 Weight (Pounds): 191 General Appearance: no apparent distress, alert Cardiovascular: normal rate Abdominal Exam: normal bowel sounds, non tender, soft Extremities: normal range of motion Acacia Bright N.P. Dec 19, 2016 14:40
[2016-12-19 16:04] VITALS: BP 125/67
--- NOTE | 2016-12-19 18:37 | Pulmonology Progress Note ---
Assessment/Plan Problems: (1) Cholecystitis (2) LFT elevation (3) BPH (benign prostatic hyperplasia) (4) HTN (hypertension) Assessment/Plan no new events continue abx surgery yrn, check electroltyes dvt prophylaxis Subjective ROS Limited/Unobtainable: No Constitutional: Reports: no symptoms HEENT: Repors: no symptoms Allergies: Coded Allergies: No Known Allergies (Unverified , 08/17/13) Objective Last 24 Hour Vital Signs Date Time Temp Pulse Resp B/P Pulse Ox O2 Delivery O2 Flow Rate FiO2 12/19/16 16:04 98.4 79 20 125/67 99 Room Air 12/19/16 14:30 98.4 12/19/16 12:04 98.4 75 20 129/85 97 Room Air 12/19/16 09:00 108/58 12/19/16 08:31 97.0 78 20 108/58 98 Room Air 12/19/16 04:00 98.0 78 18 123/74 98 Room Air 12/19/16 00:00 97.7 77 17 129/76 98 Room Air 12/18/16 20:00 97.1 75 18 122/70 99 Room Air Intake and Output 12/18/16 12/19/16 19:00 07:00 Intake Total 600.0 ml 882.5 ml Balance 600.0 ml 882.5 ml Intake Oral 360 ml 400 ml IV Total 240.0 ml 482.5 ml # Voids 2 3 Objective General Appearance: WD/WN HEENT: normocephalic, atraumatic Respiratory/Chest: chest wall non-tender, lungs clear Cardiovascular: normal peripheral pulses, normal rate Abdomen: normal bowel sounds, soft, non tender, no organomegaly Extremities: no cyanosis, no clubbing Skin: no rash Laboratory Tests 12/19/16 05:20: White Blood Count 9.2, Red Blood Count 3.52L, Hemoglobin 11.4L, Hematocrit 34.2L , Mean Corpuscular Volume 97, Mean Corpuscular Hemoglobin 32.3H, Mean Corpuscular Hemoglobin Concent 33.2, Red Cell Distribution Width 12.0, Platelet Count 301, Mean Platelet Volume 6.1L, Neutrophils (%) (Auto) 67.1, Lymphocytes ( %) (Auto) 17.7L, Monocytes (%) (Auto) 13.9H, Eosinophils (%) (Auto) 0.4, Basophils (%) (Auto) 0.9, Reticulocyte Count 0.4, Sodium Level 136, Potassium Level 3.8, Chloride Level 94L, Carbon Dioxide Level 25, Anion Gap 17H, Blood Urea Nitrogen 10, Creatinine 1.2, Estimat Glomerular Filtration Rate > 60, Glucose Level 90, Calcium Level 8.9, Iron Level 14L, Total Iron Binding Capacity 254, Percent Iron Saturation 6L, Unsaturated Iron Binding 240, Ferritin 179, Total Bilirubin 1.0, Aspartate Amino Transf (AST/SGOT) 10, Alanine Aminotransferase (ALT/SGPT) 5, Alkaline Phosphatase 55, Total Protein 7.3, Albumin 3.5, Globulin 3.8, Albumin/Globulin Ratio 0.9L, Carcinoembryonic Antigen 1.4, Vitamin B12 Level 277, Folate [Pending], Thyroid Stimulating Hormone (TSH) 3.380, Free Thyroxine 1.31 Current Medications Medications (Trade) Dose Ordered Sig/Agnes Route PRN Reason Start Time Stop Time Status Last Admin Dose Admin Acetaminophen (Tylenol) 650 mg Q4H PRN ORAL Mild Pain (Pain Scale 1-3) 12/15/16 19:15 01/14/17 19:14 Acetaminophen (Tylenol) 650 mg Q4H PRN ORAL fever 12/15/16 19:45 01/14/17 19:44 Al Hydroxide/Mg Hydroxide (Mylanta II) 30 ml Q6H PRN ORAL dyspepsia 12/15/16 19:45 01/14/17 19:44 Bisacodyl (Dulcolax) 10 mg HSPRN PRN RECTAL Constipation 12/15/16 19:15 01/14/17 19:14 Dextrose STAT PRN IV Hypoglycemia 12/15/16 19:45 01/14/17 19:44 Dextrose/Sodium Chloride (D5 0.45% NS) 1,000 ml @ 75 mls/hr [id number] IV 12/15/16 21:00 01/14/17 20:59 12/17/16 13:23 Diphenhydramine HCl (Benadryl) 25 mg Q6H PRN ORAL Itching/Pruritis 12/15/16 19:45 01/14/17 19:44 Finasteride (Proscar) 5 mg DAILY ORAL 12/16/16 09:00 01/15/17 08:59 12/19/16 09:06 Heparin Sodium (Porcine) (Heparin 5000 units/ml) 5,000 units EVERY 12 HOURS SUBQ 12/15/16 21:00 01/14/17 20:59 12/19/16 09:14 Iron Sucrose/ Sodium Chloride (Venofer/Sodium Chloride) 60 ml @ 240 mls/hr BEDTIME IVPB 12/19/16 21:00 12/21/16 21:14 Losartan Potassium (Cozaar) 25 mg DAILY ORAL 12/16/16 09:00 01/15/17 08:59 12/17/16 08:08 Magnesium Hydroxide 30 ml 30 ml HSPRN PRN ORAL Constipation 12/15/16 19:15 01/14/17 19:14 Morphine Sulfate (Morphine Sulfate) 1 mg Q4H PRN IVP For Pain 12/15/16 19:15 12/22/16 19:14 Morphine Sulfate (Morphine Sulfate) 2 mg Q4H PRN IVP Moderate Pain (Pain Scale 4-6) 12/15/16 19:15 12/22/16 19:14 12/16/16 12:24 Morphine Sulfate (Morphine Sulfate) 4 mg Q4H PRN IVP Severe Pain (Pain Scale 7-10) 12/15/16 19:15 12/22/16 19:14 12/19/16 14:00 Nitroglycerin (Ntg) 0.4 mg Q5M X 3 DOSES PRN SL Prn Chest Pain 12/15/16 19:45 01/14/17 19:44 Ondansetron HCl (Zofran) 4 mg Q6H PRN IVP Nausea & Vomiting 12/15/16 19:45 01/14/17 19:44 Pantoprazole (Protonix) 40 mg DAILY IVP 12/16/16 09:00 01/15/17 08:59 12/19/16 09:05 Piperacillin Sod/ Tazobactam Sod/ Dextrose (Zosyn/D5W) 110 ml @ 27.5 mls/hr EVERY 8 HOURS IVPB 12/15/16 22:00 12/22/16 21:59 12/19/16 14:00 Polyethylene Glycol (Miralax) 17 gm HSPRN PRN ORAL Constipation 12/15/16 19:45 01/14/17 19:44 Tamsulosin HCl 0.4 mg 0.4 mg BEDTIME ORAL 12/16/16 21:00 01/15/17 20:59 12/18/16 21:18 Temazepam (Restoril) 15 mg HSPRN PRN ORAL Insomnia 12/15/16 19:45 12/22/16 19:44 WU CABRERA Dec 19, 2016 18:37
[2016-12-19] MEDS: Tamsulosin 0.4mg cap ORAL SCH (19:52)
[2016-12-19] MEDS: Iron Sucrose 100 MG in NS 55 ML IVPB SCH (19:54)
[2016-12-19 20:00] VITALS: BP 120/76
[2016-12-20] MEDS: Morphine Sulfate 4mg/ml Inj IVP PRN ×3 (02:34→19:04)
[2016-12-20] MEDS: Piperacillin/Tazobactam 3.375 GM in D5W 110 ML IVPB SCH ×3 (04:56→22:09)
[2016-12-20 07:03] LABS: BASOPHILS % (AUTO) 1.3 % (0.0-2.0); EOSINOPHILS % (AUTO) 0.6 % (0.0-3.0); LYMPHOCYTES % (AUTO) 19.3 % (20.0-45.0); MEAN CORPUSCULAR HEMOGLOBIN 32.8 PG (27.0-31.0); MEAN CORPUSCULAR HGB CONC 35.2 G/DL (32.0-36.0); MEAN CORPUSCULAR VOLUME 93 FL (80-99); MEAN PLATELET VOLUME 6.1 FL (6.5-10.1); MONOCYTES % (AUTO) 13.6 % (1.0-10.0); NEUTROPHILS % (AUTO) 65.2 % (45.0-75.0); PLATELET COUNT 321 K/UL (150-450); RED BLOOD COUNT 3.65 M/UL (4.70-6.10); RED CELL DISTRIBUTION WIDTH 11.9 % (11.6-14.8); WHITE BLOOD COUNT 7.6 K/UL (4.8-10.8)
[2016-12-20 07:33] LABS: ANION GAP 17 (5-15); CALCIUM 9.2 mg/dL (8.6-10.2); CARBON DIOXIDE 25 mEQ/L (20-30); CHLORIDE 93 mEQ/L (98-107); CREATININE 1.1 mg/dL (0.7-1.2); GLOMERULAR FILTRATION RATE > 60 mL/min (>60); HEMOLYSIS 0; SODIUM 135 mEQ/L (135-145)
[2016-12-20] MEDS: D5 1/2NS 1,000 ML IV SCH (07:40)
[2016-12-20 08:26] VITALS: BP 119/69
[2016-12-20] MEDS: Losartan 25mg tab ORAL SCH (09:06)
[2016-12-20] MEDS: Heparin 5000 units/ml inj SUBQ SCH (09:09)
[2016-12-20] MEDS: Pantoprazole Inj IVP SCH (09:10)
--- NOTE | 2016-12-20 09:41 | Infectious Diseases Prog Note ---
Assessment/Plan Assessment/Plan A The patient is a 61-year-old male with Cholecystitis, HIDA " Nonvisualization of gallbladder RUQ abd ain Seizure. Hypertension. History of appendectomy. History of BPH. History of right knee replacement PLAN: continue the patient on IV Zosyn day # 6 / 7- 10 Monitor CBC. Monitor BMP. Monitor blood culture plan of Sx afternoon. Subjective Constitutional: Denies: anorexia, chills, drenching sweats, fatigue, fever, no symptoms, other Allergies: Coded Allergies: No Known Allergies (Unverified , 08/17/13) Subjective still has RUQ pain Objective Vital Signs Last 24 Hour Vital Signs Date Time Temp Pulse Resp B/P Pulse Ox O2 Delivery O2 Flow Rate FiO2 12/20/16 09:06 119/69 12/20/16 08:26 98.2 82 19 119/69 99 Room Air 12/19/16 20:00 97.1 77 20 120/76 98 Room Air 12/19/16 16:04 98.4 79 20 125/67 99 Room Air 12/19/16 14:30 98.4 12/19/16 12:04 98.4 75 20 129/85 97 Room Air Height (Feet): 6 Height (Inches): 1.00 Weight (Pounds): 191 Respiratory/Chest: normal breath sounds Cardiovascular: regularly irregular Abdomen: non distended Laboratory Tests Test 12/20/16 06:10 White Blood Count 7.6 K/UL (4.8-10.8) Red Blood Count 3.65 M/UL (4.70-6.10) L Hemoglobin 12.0 G/DL (14.2-18.0) L Hematocrit 34.1 % (42.0-52.0) L Mean Corpuscular Volume 93 FL (80-99) Mean Corpuscular Hemoglobin 32.8 PG (27.0-31.0) H Mean Corpuscular Hemoglobin Concent 35.2 G/DL (32.0-36.0) Red Cell Distribution Width 11.9 % (11.6-14.8) Platelet Count 321 K/UL (150-450) Mean Platelet Volume 6.1 FL (6.5-10.1) L Neutrophils (%) (Auto) 65.2 % (45.0-75.0) Lymphocytes (%) (Auto) 19.3 % (20.0-45.0) L Monocytes (%) (Auto) 13.6 % (1.0-10.0) H Eosinophils (%) (Auto) 0.6 % (0.0-3.0) Basophils (%) (Auto) 1.3 % (0.0-2.0) Sodium Level 135 mEQ/L (135-145) Potassium Level 4.0 mEQ/L (3.4-4.9) Chloride Level 93 mEQ/L (98-107) L Carbon Dioxide Level 25 mEQ/L (20-30) Anion Gap 17 (5-15) H Blood Urea Nitrogen 9 mg/dL (7-23) Creatinine 1.1 mg/dL (0.7-1.2) Estimat Glomerular Filtration Rate > 60 mL/min (>60) Glucose Level 100 mg/dL (74-106) Calcium Level 9.2 mg/dL (8.6-10.2) Current Medications Medications (Trade) Dose Ordered Sig/Agnes Route PRN Reason Start Time Stop Time Status Last Admin Dose Admin Acetaminophen (Tylenol) 650 mg Q4H PRN ORAL Mild Pain (Pain Scale 1-3) 12/15/16 19:15 01/14/17 19:14 Acetaminophen (Tylenol) 650 mg Q4H PRN ORAL fever 12/15/16 19:45 01/14/17 19:44 Al Hydroxide/Mg Hydroxide (Mylanta II) 30 ml Q6H PRN ORAL dyspepsia 12/15/16 19:45 01/14/17 19:44 Bisacodyl (Dulcolax) 10 mg HSPRN PRN RECTAL Constipation 12/15/16 19:15 01/14/17 19:14 Dextrose STAT PRN IV Hypoglycemia 12/15/16 19:45 01/14/17 19:44 Dextrose/Sodium Chloride (D5 0.45% NS) 1,000 ml @ 75 mls/hr [id number] IV 12/15/16 21:00 01/14/17 20:59 12/17/16 13:23 Diphenhydramine HCl (Benadryl) 25 mg Q6H PRN ORAL Itching/Pruritis 12/15/16 19:45 01/14/17 19:44 Finasteride (Proscar) 5 mg DAILY ORAL 12/16/16 09:00 01/15/17 08:59 12/20/16 09:06 Heparin Sodium (Porcine) (Heparin 5000 units/ml) 5,000 units EVERY 12 HOURS SUBQ 12/15/16 21:00 01/14/17 20:59 12/20/16 09:09 Iron Sucrose/ Sodium Chloride (Venofer/Sodium Chloride) 60 ml @ 240 mls/hr BEDTIME IVPB 12/19/16 21:00 12/21/16 21:14 12/19/16 19:54 Losartan Potassium (Cozaar) 25 mg DAILY ORAL 12/16/16 09:00 01/15/17 08:59 12/20/16 09:06 Magnesium Hydroxide 30 ml 30 ml HSPRN PRN ORAL Constipation 12/15/16 19:15 01/14/17 19:14 Morphine Sulfate (Morphine Sulfate) 1 mg Q4H PRN IVP For Pain 12/15/16 19:15 12/22/16 19:14 Morphine Sulfate (Morphine Sulfate) 2 mg Q4H PRN IVP Moderate Pain (Pain Scale 4-6) 12/15/16 19:15 12/22/16 19:14 12/16/16 12:24 Morphine Sulfate (Morphine Sulfate) 4 mg Q4H PRN IVP Severe Pain (Pain Scale 7-10) 12/15/16 19:15 12/22/16 19:14 12/20/16 02:34 Nitroglycerin (Ntg) 0.4 mg Q5M X 3 DOSES PRN SL Prn Chest Pain 12/15/16 19:45 01/14/17 19:44 Ondansetron HCl (Zofran) 4 mg Q6H PRN IVP Nausea & Vomiting 12/15/16 19:45 01/14/17 19:44 Pantoprazole (Protonix) 40 mg DAILY IVP 12/16/16 09:00 01/15/17 08:59 12/20/16 09:10 Piperacillin Sod/ Tazobactam Sod/ Dextrose (Zosyn/D5W) 110 ml @ 27.5 mls/hr EVERY 8 HOURS IVPB 12/15/16 22:00 12/22/16 21:59 12/20/16 04:56 Polyethylene Glycol (Miralax) 17 gm HSPRN PRN ORAL Constipation 12/15/16 19:45 01/14/17 19:44 Tamsulosin HCl 0.4 mg 0.4 mg BEDTIME ORAL 12/16/16 21:00 01/15/17 20:59 12/19/16 19:52 Temazepam (Restoril) 15 mg HSPRN PRN ORAL Insomnia 12/15/16 19:45 12/22/16 19:44 BABATUNDE BRAGG M.D. Dec 20, 2016 09:41
--- NOTE | 2016-12-20 10:24 | GI Progress Note ---
Assessment/Plan Problems: (1) LFT elevation ICD Codes: R94.5 - Abnormal results of liver function studies SNOMED: 167335017 (2) Anemia ICD Codes: D64.9 - Anemia, unspecified SNOMED: 040014710 (3) Cholecystitis ICD Codes: K81.9 - Cholecystitis, unspecified SNOMED: 22841546, 91081426 (4) Abdominal pain ICD Codes: R10.9 - Unspecified abdominal pain SNOMED: 53442858, 45813509 Qualifiers: Qualified Codes: R10.11 - Right upper quadrant pain Status: stable Status Narrative Discussed with Dr. Andrew. Assessment/Plan APCT reviewed >> Distended gallbladder with stones, possible mild mural thickening. fu abdominal U/S HIDA reviewed >> cystic duct obstruction lipase WNL iron deficiency >> venofer cholecystectomy scheduled tomorrow, see surgical note. regular diet pain mgmt ppi fu labs Subjective Subjective abdominal pain still present Objective Last 24 Hour Vital Signs Date Time Temp Pulse Resp B/P Pulse Ox O2 Delivery O2 Flow Rate FiO2 12/20/16 09:06 119/69 12/20/16 08:26 98.2 82 19 119/69 99 Room Air 12/19/16 20:00 97.1 77 20 120/76 98 Room Air 12/19/16 16:04 98.4 79 20 125/67 99 Room Air 12/19/16 14:30 98.4 12/19/16 12:04 98.4 75 20 129/85 97 Room Air Intake and Output 12/19/16 12/20/16 19:00 07:00 Intake Total 165.0 ml 670.0 ml Output Total 1200 ml 1100 ml Balance -1035.0 ml -430.0 ml Intake Oral 500 ml IV Total 165.0 ml 170.0 ml Output Urine Total 1200 ml 1100 ml # Voids 3 4 Laboratory Tests Test 12/20/16 06:10 White Blood Count 7.6 K/UL (4.8-10.8) Red Blood Count 3.65 M/UL (4.70-6.10) L Hemoglobin 12.0 G/DL (14.2-18.0) L Hematocrit 34.1 % (42.0-52.0) L Mean Corpuscular Volume 93 FL (80-99) Mean Corpuscular Hemoglobin 32.8 PG (27.0-31.0) H Mean Corpuscular Hemoglobin Concent 35.2 G/DL (32.0-36.0) Red Cell Distribution Width 11.9 % (11.6-14.8) Platelet Count 321 K/UL (150-450) Mean Platelet Volume 6.1 FL (6.5-10.1) L Neutrophils (%) (Auto) 65.2 % (45.0-75.0) Lymphocytes (%) (Auto) 19.3 % (20.0-45.0) L Monocytes (%) (Auto) 13.6 % (1.0-10.0) H Eosinophils (%) (Auto) 0.6 % (0.0-3.0) Basophils (%) (Auto) 1.3 % (0.0-2.0) Sodium Level 135 mEQ/L (135-145) Potassium Level 4.0 mEQ/L (3.4-4.9) Chloride Level 93 mEQ/L (98-107) L Carbon Dioxide Level 25 mEQ/L (20-30) Anion Gap 17 (5-15) H Blood Urea Nitrogen 9 mg/dL (7-23) Creatinine 1.1 mg/dL (0.7-1.2) Estimat Glomerular Filtration Rate > 60 mL/min (>60) Glucose Level 100 mg/dL (74-106) Calcium Level 9.2 mg/dL (8.6-10.2) Height (Feet): 6 Height (Inches): 1.00 Weight (Pounds): 191 General Appearance: no apparent distress, alert Cardiovascular: normal rate Respiratory/Chest: normal breath sounds, no respiratory distress Abdominal Exam: normal bowel sounds, non tender, soft Extremities: normal range of motion Acacia Bright N.P. Dec 20, 2016 10:24
--- NOTE | 2016-12-20 11:14 | General Surgery Progress Note ---
General Surgery-Progress Note Subjective Symptoms: pain same, tolerating diet Objective Last 24 Hour Vital Signs Date Time Temp Pulse Resp B/P Pulse Ox O2 Delivery O2 Flow Rate FiO2 12/20/16 09:06 119/69 12/20/16 08:26 98.2 82 19 119/69 99 Room Air 12/19/16 20:00 97.1 77 20 120/76 98 Room Air 12/19/16 16:04 98.4 79 20 125/67 99 Room Air 12/19/16 14:30 98.4 12/19/16 12:04 98.4 75 20 129/85 97 Room Air I&O Intake and Output 12/19/16 12/20/16 19:00 07:00 Intake Total 165.0 ml 670.0 ml Output Total 1200 ml 1100 ml Balance -1035.0 ml -430.0 ml Intake Oral 500 ml IV Total 165.0 ml 170.0 ml Output Urine Total 1200 ml 1100 ml # Voids 3 4 Cardiovascular: RSR Abdomen: soft, tenderness, present bowel sounds Laboratory Tests Test 12/20/16 06:10 White Blood Count 7.6 K/UL (4.8-10.8) Red Blood Count 3.65 M/UL (4.70-6.10) L Hemoglobin 12.0 G/DL (14.2-18.0) L Hematocrit 34.1 % (42.0-52.0) L Mean Corpuscular Volume 93 FL (80-99) Mean Corpuscular Hemoglobin 32.8 PG (27.0-31.0) H Mean Corpuscular Hemoglobin Concent 35.2 G/DL (32.0-36.0) Red Cell Distribution Width 11.9 % (11.6-14.8) Platelet Count 321 K/UL (150-450) Mean Platelet Volume 6.1 FL (6.5-10.1) L Neutrophils (%) (Auto) 65.2 % (45.0-75.0) Lymphocytes (%) (Auto) 19.3 % (20.0-45.0) L Monocytes (%) (Auto) 13.6 % (1.0-10.0) H Eosinophils (%) (Auto) 0.6 % (0.0-3.0) Basophils (%) (Auto) 1.3 % (0.0-2.0) Sodium Level 135 mEQ/L (135-145) Potassium Level 4.0 mEQ/L (3.4-4.9) Chloride Level 93 mEQ/L (98-107) L Carbon Dioxide Level 25 mEQ/L (20-30) Anion Gap 17 (5-15) H Blood Urea Nitrogen 9 mg/dL (7-23) Creatinine 1.1 mg/dL (0.7-1.2) Estimat Glomerular Filtration Rate > 60 mL/min (>60) Glucose Level 100 mg/dL (74-106) Calcium Level 9.2 mg/dL (8.6-10.2) Plan Problems: (1) Cholecystitis Assessment & Plan: 61M acute cholecystitis. HIDA was performed today with non visualization of gallbladder. likely cystic duct obstruction. continues to have pain in RUQ and tenderness on exam. Afebrile, HD stable, labs improved. lap vs open matthieu tomorrow NPO p MN IV fluids once NPO consent Serafin Mcdonough Dec 20, 2016 11:14
--- NOTE | 2016-12-20 11:16 | Pre-Procedure Note/Attestation ---
Pre-Procedure Note/Attestation Complete Prior to Procedure Planned Procedure: not applicable Procedure Narrative: lap vs open matthieu Attestation I attest that I discussed the nature of the procedure; its benefits; risks and complications; and alternatives (and the risks and benefits of such alternatives ), prior to the procedure, with the patient (or the patient's legal roofing sales representative). I attest that, if there was a reasonable possibility of needing a blood transfusion, the patient (or the patient's legal roofing sales representative) was given the [facility] standardized written summary, pursuant to the Donaldo [place] Blood Safety Act ([place] Health and Safety Code # 1645, as amended). I attest that I re-evaluated the patient just prior to the surgery and that there has been no change in the patient's H&P, except as documented below: Serafin Mcdonough Dec 20, 2016 11:16
[2016-12-20 11:54] VITALS: BP 116/63
[2016-12-20] MEDS: LR 1000ml 1,000 ML IV SCH ×2 (13:15→22:30)
--- NOTE | 2016-12-20 16:20 | Pulmonology Progress Note ---
Assessment/Plan Problems: (1) Cholecystitis (2) LFT elevation (3) BPH (benign prostatic hyperplasia) (4) HTN (hypertension) Assessment/Plan no new events continue abx surgery scheduled for am check electroltyes dvt prophylaxis Subjective ROS Limited/Unobtainable: No Constitutional: Reports: no symptoms HEENT: Repors: no symptoms Respiratory: Reports: no symptoms Allergies: Coded Allergies: No Known Allergies (Unverified , 08/17/13) Objective Last 24 Hour Vital Signs Date Time Temp Pulse Resp B/P Pulse Ox O2 Delivery O2 Flow Rate FiO2 12/20/16 11:54 97.9 76 19 116/63 98 Room Air 12/20/16 09:06 119/69 12/20/16 08:26 98.2 82 19 119/69 99 Room Air 12/19/16 20:00 97.1 77 20 120/76 98 Room Air Intake and Output 12/19/16 12/20/16 19:00 07:00 Intake Total 165.0 ml 670.0 ml Output Total 1200 ml 1100 ml Balance -1035.0 ml -430.0 ml Intake Oral 500 ml IV Total 165.0 ml 170.0 ml Output Urine Total 1200 ml 1100 ml # Voids 3 4 Objective General Appearance: WD/WN HEENT: normocephalic, atraumatic Respiratory/Chest: chest wall non-tender, lungs clear Cardiovascular: normal peripheral pulses, normal rate Abdomen: normal bowel sounds, soft, non tender, no organomegaly Extremities: no cyanosis, no clubbing Skin: no rash Laboratory Tests 12/20/16 06:10: White Blood Count 7.6, Red Blood Count 3.65L, Hemoglobin 12.0L, Hematocrit 34.1L , Mean Corpuscular Volume 93, Mean Corpuscular Hemoglobin 32.8H, Mean Corpuscular Hemoglobin Concent 35.2, Red Cell Distribution Width 11.9, Platelet Count 321, Mean Platelet Volume 6.1L, Neutrophils (%) (Auto) 65.2, Lymphocytes ( %) (Auto) 19.3L, Monocytes (%) (Auto) 13.6H, Eosinophils (%) (Auto) 0.6, Basophils (%) (Auto) 1.3, Sodium Level 135, Potassium Level 4.0, Chloride Level 93L, Carbon Dioxide Level 25, Anion Gap 17H, Blood Urea Nitrogen 9, Creatinine 1.1, Estimat Glomerular Filtration Rate > 60, Glucose Level 100, Calcium Level 9.2 Current Medications Medications (Trade) Dose Ordered Sig/Agnes Route PRN Reason Start Time Stop Time Status Last Admin Dose Admin Acetaminophen (Tylenol) 650 mg Q4H PRN ORAL Mild Pain (Pain Scale 1-3) 12/15/16 19:15 01/14/17 19:14 Acetaminophen (Tylenol) 650 mg Q4H PRN ORAL fever 12/15/16 19:45 01/14/17 19:44 Al Hydroxide/Mg Hydroxide (Mylanta II) 30 ml Q6H PRN ORAL dyspepsia 12/15/16 19:45 01/14/17 19:44 Bisacodyl (Dulcolax) 10 mg HSPRN PRN RECTAL Constipation 12/15/16 19:15 01/14/17 19:14 Dextrose STAT PRN IV Hypoglycemia 12/15/16 19:45 01/14/17 19:44 Diphenhydramine HCl (Benadryl) 25 mg Q6H PRN ORAL Itching/Pruritis 12/15/16 19:45 01/14/17 19:44 Finasteride (Proscar) 5 mg DAILY ORAL 12/16/16 09:00 01/15/17 08:59 12/20/16 09:06 Iron Sucrose 100 mg/Sodium Chloride 60 ml @ 240 mls/hr BEDTIME IVPB 12/19/16 21:00 12/21/16 21:14 12/19/16 19:54 Lactated Ringer's (Lactated Ringer's 1000ml) 1,000 ml @ 100 mls/hr Q10H IV 12/20/16 12:30 01/19/17 12:29 12/20/16 13:15 Losartan Potassium (Cozaar) 25 mg DAILY ORAL 12/16/16 09:00 01/15/17 08:59 12/20/16 09:06 Magnesium Hydroxide (Mom) 30 ml HSPRN PRN ORAL Constipation 12/15/16 19:15 01/14/17 19:14 Morphine Sulfate (Morphine Sulfate) 1 mg Q4H PRN IVP For Pain 12/15/16 19:15 12/22/16 19:14 Morphine Sulfate (Morphine Sulfate) 2 mg Q4H PRN IVP Moderate Pain (Pain Scale 4-6) 12/15/16 19:15 12/22/16 19:14 12/16/16 12:24 Morphine Sulfate (Morphine Sulfate) 4 mg Q4H PRN IVP Severe Pain (Pain Scale 7-10) 12/15/16 19:15 12/22/16 19:14 12/20/16 13:16 Nitroglycerin (Ntg) 0.4 mg Q5M X 3 DOSES PRN SL Prn Chest Pain 12/15/16 19:45 01/14/17 19:44 Ondansetron HCl (Zofran) 4 mg Q6H PRN IVP Nausea & Vomiting 12/15/16 19:45 01/14/17 19:44 Pantoprazole (Protonix) 40 mg DAILY IVP 12/16/16 09:00 01/15/17 08:59 12/20/16 09:10 Piperacillin Sod/ Tazobactam Sod/ Dextrose (Zosyn/D5W) 110 ml @ 27.5 mls/hr EVERY 8 HOURS IVPB 12/15/16 22:00 12/22/16 21:59 12/20/16 15:38 Polyethylene Glycol (Miralax) 17 gm HSPRN PRN ORAL Constipation 12/15/16 19:45 01/14/17 19:44 Tamsulosin HCl 0.4 mg 0.4 mg BEDTIME ORAL 12/16/16 21:00 01/15/17 20:59 12/19/16 19:52 Temazepam (Restoril) 15 mg HSPRN PRN ORAL Insomnia 12/15/16 19:45 12/22/16 19:44 WU CABRERA Dec 20, 2016 16:20
[2016-12-20 16:23] VITALS: BP 117/66
[2016-12-20 20:00] VITALS: BP 125/76
[2016-12-20] MEDS: Tamsulosin 0.4mg cap ORAL SCH (21:31)
[2016-12-20] MEDS: Iron Sucrose 100 MG in NS 55 ML IVPB SCH (21:31)
[2016-12-20 23:57] VITALS: BP 123/74
[2016-12-21] VITALS (12 sets, daily range): BP systolic 107–160; BP diastolic 63–94
[2016-12-21] MEDS: Morphine Sulfate 4mg/ml Inj IVP PRN ×3 (00:45→21:08)
[2016-12-21] MEDS: Piperacillin/Tazobactam 3.375 GM in D5W 110 ML IVPB SCH ×3 (04:59→21:08)
[2016-12-21 07:18] LABS: BASOPHILS % (AUTO) 0.9 % (0.0-2.0); LYMPHOCYTES % (AUTO) 19.3 % (20.0-45.0); MEAN CORPUSCULAR HEMOGLOBIN 33.6 PG (27.0-31.0); MEAN CORPUSCULAR HGB CONC 34.3 G/DL (32.0-36.0); MEAN CORPUSCULAR VOLUME 98 FL (80-99); MEAN PLATELET VOLUME 6.1 FL (6.5-10.1); MONOCYTES % (AUTO) 14.4 % (1.0-10.0); NEUTROPHILS % (AUTO) 64.4 % (45.0-75.0); PLATELET COUNT 368 K/UL (150-450); RED BLOOD COUNT 3.35 M/UL (4.70-6.10); RED CELL DISTRIBUTION WIDTH 11.7 % (11.6-14.8); WHITE BLOOD COUNT 6.8 K/UL (4.8-10.8)
[2016-12-21 07:29] LABS: ALANINE AMINOTRANSFERASE 6 U/L (3-41); ALBUMIN/GLOBULIN RATIO 0.8 (1.0-2.7); ANION GAP 15 (5-15); ASPARTATE AMINO TRANSFERASE 10 U/L (5-40); CALCIUM 9.3 mg/dL (8.6-10.2); CARBON DIOXIDE 24 mEQ/L (20-30); CHLORIDE 96 mEQ/L (98-107); CREATININE 0.9 mg/dL (0.7-1.2); GLOMERULAR FILTRATION RATE > 60 mL/min (>60); HEMOLYSIS 0; POTASSIUM 4.1 mEQ/L (3.4-4.9); SODIUM 135 mEQ/L (135-145); TOTAL PROTEIN 7.1 g/dL (6.6-8.7)
[2016-12-21 07:50] LABS: INR 0.9 (0.9-1.1); PROTHROMBIN TIME 9.9 SEC (9.30-11.50)
[2016-12-21] MEDS: LR 1000ml 1,000 ML IV SCH ×2 (08:13→17:48)
[2016-12-21] MEDS: Losartan 25mg tab ORAL SCH (10:09)
[2016-12-21] MEDS: Pantoprazole Inj IVP SCH (10:09)
--- NOTE | 2016-12-21 11:49 | Anethesia Preoperative Eval ---
Anesthesia Pre-op PMH/ROS General Date of Evaluation: Dec 21, 2016 Anesthesiologist: Luis ASA Score: ASA 2 Mallampati Score Class I : Soft palate, uvula, fauces, pillars visible Class II: Soft palate, uvula, fauces visible Class III: Soft palate, base of uvula visible Class IV: Only hard plate visible Mallampati Classification: Class III Surgeon: Sharonda Diagnosis: Acute cholecystitis Surgical Procedure: Laparoscopic cholecystectomy Anesthesia History: none Family History: no anesthesia problems Allergies: Coded Allergies: No Known Allergies (Unverified , 08/17/13) Medications: see eMAR Past Medical History Cardiovascular: Reports: HTN, Denies: CAD, NE, arrhythmia, other, valve dz Pulmonary: Denies: COPD, LANRE, asthma, other Gastrointestinal/Genitourinary: Reports: other - BPH, Denies: CRI, ESRD, GERD Neurologic/Psychiatric: Denies: CVA, TIA, dementia, depression/anxiety, other Endocrine: Denies: DM, hypothyroidism, other, steroids HEENT: Denies: [place] (L), [place] (R), cataract (L), cataract (R), glaucoma, other Hematology/Immune: Denies: DVT, anemia, bleeding disorder, other Musculoskeletal/Integumentary: Denies: DDD, DJD, OA, RA, edema, other PSxH Narrative: lap appy, right TKR Anesthesia Pre-op Phys. Exam Physician Exam Last Vital Signs Date Time Temp Pulse Resp B/P Pulse Ox O2 Delivery O2 Flow Rate FiO2 12/21/16 10:09 142/73 12/21/16 07:53 98.1 77 14 99 Nasal Cannula Constitutional: NAD Cardiovascular: RRR Respiratory: CTA Airway Exam Mallampati Score: Class III MO: full ROM: full Teeth: missing, intact, broken Anesthesia Pre-op A/P Labs Hematology Test 12/21/16 06:05 White Blood Count 6.8 K/UL (4.8-10.8) Red Blood Count 3.35 M/UL (4.70-6.10) L Hemoglobin 11.3 G/DL (14.2-18.0) L Hematocrit 32.8 % (42.0-52.0) L Mean Corpuscular Volume 98 FL (80-99) Mean Corpuscular Hemoglobin 33.6 PG (27.0-31.0) H Mean Corpuscular Hemoglobin Concent 34.3 G/DL (32.0-36.0) Red Cell Distribution Width 11.7 % (11.6-14.8) Platelet Count 368 K/UL (150-450) Mean Platelet Volume 6.1 FL (6.5-10.1) L Neutrophils (%) (Auto) 64.4 % (45.0-75.0) Lymphocytes (%) (Auto) 19.3 % (20.0-45.0) L Monocytes (%) (Auto) 14.4 % (1.0-10.0) H Eosinophils (%) (Auto) 1.0 % (0.0-3.0) Basophils (%) (Auto) 0.9 % (0.0-2.0) Coagulation Test 12/21/16 06:05 Prothrombin Time 9.9 SEC (9.30-11.50) Prothromb Time International Ratio 0.9 (0.9-1.1) Activated Partial Thromboplast Time 34 SEC (23-33) H Chemistry Test 12/21/16 06:05 Sodium Level 135 mEQ/L (135-145) Potassium Level 4.1 mEQ/L (3.4-4.9) Chloride Level 96 mEQ/L (98-107) L Carbon Dioxide Level 24 mEQ/L (20-30) Anion Gap 15 (5-15) Blood Urea Nitrogen 11 mg/dL (7-23) Creatinine 0.9 mg/dL (0.7-1.2) Estimat Glomerular Filtration Rate > 60 mL/min (>60) Glucose Level 107 mg/dL (74-106) H Calcium Level 9.3 mg/dL (8.6-10.2) Total Bilirubin 0.5 mg/dL (0.0-1.2) Aspartate Amino Transf (AST/SGOT) 10 U/L (5-40) Alanine Aminotransferase (ALT/SGPT) 6 U/L (3-41) Alkaline Phosphatase 51 U/L (40-129) Total Protein 7.1 g/dL (6.6-8.7) Albumin 3.3 g/dL (3.5-5.2) L Globulin 3.8 g/dL Albumin/Globulin Ratio 0.8 (1.0-2.7) L Studies Pre-op Studies: EKG - sr Risk Assessment & Plan Assessment: ASA II Plan: GA Status Change Before Surgery: No Pre-Antibiotics Drug: Ancef 2g Given Within 1 Hr of Incision: Yes - 1430 Time Given: 14:30 SHIRLENE CHEN M.D. Dec 21, 2016 11:49
--- NOTE | 2016-12-21 12:40 | GI Progress Note ---
Assessment/Plan Problems: (1) LFT elevation ICD Codes: R94.5 - Abnormal results of liver function studies SNOMED: 661243860 (2) Anemia ICD Codes: D64.9 - Anemia, unspecified SNOMED: 150207908 (3) Cholecystitis ICD Codes: K81.9 - Cholecystitis, unspecified SNOMED: 31347013, 33024059 (4) Abdominal pain ICD Codes: R10.9 - Unspecified abdominal pain SNOMED: 00767979, 34897960 Qualifiers: Qualified Codes: R10.11 - Right upper quadrant pain Status: stable Status Narrative Discussed with Dr. Andrew. Assessment/Plan APCT reviewed >> Distended gallbladder with stones, possible mild mural thickening. fu abdominal U/S HIDA reviewed >> cystic duct obstruction lipase WNL iron deficiency >> venofer cholecystectomy today, see surgical note. diet per surgery pain mgmt ppi fu labs Subjective Subjective abdominal pain still present Objective Last 24 Hour Vital Signs Date Time Temp Pulse Resp B/P Pulse Ox O2 Delivery O2 Flow Rate FiO2 12/21/16 12:02 97.7 79 16 115/82 100 Room Air 12/21/16 10:09 142/73 12/21/16 07:53 98.1 77 14 142/73 99 Nasal Cannula 12/21/16 05:35 98.2 12/21/16 04:00 98.2 79 20 107/63 97 Room Air 12/20/16 23:57 98.1 72 20 123/74 98 Room Air 12/20/16 20:00 98.1 78 19 125/76 98 Room Air 12/20/16 16:23 97.7 78 19 117/66 97 Room Air Intake and Output 12/20/16 12/21/16 19:00 07:00 Intake Total 642.5 ml 652.5 ml Output Total 420 ml 600 ml Balance 222.5 ml 52.5 ml Intake Oral 560 ml IV Total 82.5 ml 652.5 ml Output Urine Total 420 ml 600 ml # Voids 2 Laboratory Tests Test 12/21/16 06:05 White Blood Count 6.8 K/UL (4.8-10.8) Red Blood Count 3.35 M/UL (4.70-6.10) L Hemoglobin 11.3 G/DL (14.2-18.0) L Hematocrit 32.8 % (42.0-52.0) L Mean Corpuscular Volume 98 FL (80-99) Mean Corpuscular Hemoglobin 33.6 PG (27.0-31.0) H Mean Corpuscular Hemoglobin Concent 34.3 G/DL (32.0-36.0) Red Cell Distribution Width 11.7 % (11.6-14.8) Platelet Count 368 K/UL (150-450) Mean Platelet Volume 6.1 FL (6.5-10.1) L Neutrophils (%) (Auto) 64.4 % (45.0-75.0) Lymphocytes (%) (Auto) 19.3 % (20.0-45.0) L Monocytes (%) (Auto) 14.4 % (1.0-10.0) H Eosinophils (%) (Auto) 1.0 % (0.0-3.0) Basophils (%) (Auto) 0.9 % (0.0-2.0) Prothrombin Time 9.9 SEC (9.30-11.50) Prothromb Time International Ratio 0.9 (0.9-1.1) Activated Partial Thromboplast Time 34 SEC (23-33) H Sodium Level 135 mEQ/L (135-145) Potassium Level 4.1 mEQ/L (3.4-4.9) Chloride Level 96 mEQ/L (98-107) L Carbon Dioxide Level 24 mEQ/L (20-30) Anion Gap 15 (5-15) Blood Urea Nitrogen 11 mg/dL (7-23) Creatinine 0.9 mg/dL (0.7-1.2) Estimat Glomerular Filtration Rate > 60 mL/min (>60) Glucose Level 107 mg/dL (74-106) H Calcium Level 9.3 mg/dL (8.6-10.2) Total Bilirubin 0.5 mg/dL (0.0-1.2) Aspartate Amino Transf (AST/SGOT) 10 U/L (5-40) Alanine Aminotransferase (ALT/SGPT) 6 U/L (3-41) Alkaline Phosphatase 51 U/L (40-129) Total Protein 7.1 g/dL (6.6-8.7) Albumin 3.3 g/dL (3.5-5.2) L Globulin 3.8 g/dL Albumin/Globulin Ratio 0.8 (1.0-2.7) L Height (Feet): 6 Height (Inches): 1.00 Weight (Pounds): 191 General Appearance: no apparent distress, alert Cardiovascular: normal rate Respiratory/Chest: no respiratory distress Abdominal Exam: normal bowel sounds, non tender, soft Extremities: normal range of motion Acacia Bright N.P. Dec 21, 2016 12:40
[2016-12-21] MEDS ORDERED: Ketorolac 30mg Inj ONE (14:00)
[2016-12-21] MEDS ORDERED: Lidocaine 1% MPF 10mg/ml 5ml ONE (14:00)
[2016-12-21] MEDS ORDERED: Propofol 10mg/ml 20ml IV ONE (14:00)
[2016-12-21] MEDS ORDERED: Midazolam 2mg/2ml Inj ONE (14:00)
[2016-12-21] MEDS ORDERED: LR 1000ml ONE (14:00)
[2016-12-21] MEDS ORDERED: Dexamethasone 4mg/ml vial ONE (14:00)
[2016-12-21] MEDS ORDERED: Nimbex 2mg/ml Inj 10ML IVP ONE (14:00)
[2016-12-21] MEDS ORDERED: fentaNYL 100 mcg/2 mL IV ONE (14:00)
[2016-12-21] MEDS ORDERED: Bupivacaine w/Epi 0.25% 30ml Vial INJ ONE (14:16)
--- NOTE | 2016-12-21 14:55 | Pulmonology Progress Note ---
Assessment/Plan Problems: (1) Cholecystitis (2) LFT elevation (3) BPH (benign prostatic hyperplasia) (4) HTN (hypertension) Assessment/Plan no new events tolerating surgery start diet when ok with surgeon Subjective ROS Limited/Unobtainable: No Interval Events: s/p cholecystectomy Allergies: Coded Allergies: No Known Allergies (Unverified , 08/17/13) Objective Last 24 Hour Vital Signs Date Time Temp Pulse Resp B/P Pulse Ox O2 Delivery O2 Flow Rate FiO2 12/21/16 12:02 97.7 79 16 115/82 100 Room Air 12/21/16 10:09 142/73 12/21/16 07:53 98.1 77 14 142/73 99 Nasal Cannula 12/21/16 05:35 98.2 12/21/16 04:00 98.2 79 20 107/63 97 Room Air 12/20/16 23:57 98.1 72 20 123/74 98 Room Air 12/20/16 20:00 98.1 78 19 125/76 98 Room Air 12/20/16 16:23 97.7 78 19 117/66 97 Room Air Intake and Output 12/20/16 12/21/16 19:00 07:00 Intake Total 642.5 ml 652.5 ml Output Total 420 ml 600 ml Balance 222.5 ml 52.5 ml Intake Oral 560 ml IV Total 82.5 ml 652.5 ml Output Urine Total 420 ml 600 ml # Voids 2 Objective General Appearance: WD/WN HEENT: normocephalic, atraumatic Respiratory/Chest: chest wall non-tender, lungs clear Cardiovascular: normal peripheral pulses, normal rate Abdomen: normal bowel sounds, soft, non tender, no organomegaly Extremities: no cyanosis, no clubbing Skin: no rash Laboratory Tests 12/21/16 06:05: White Blood Count 6.8, Red Blood Count 3.35L, Hemoglobin 11.3L, Hematocrit 32.8L , Mean Corpuscular Volume 98, Mean Corpuscular Hemoglobin 33.6H, Mean Corpuscular Hemoglobin Concent 34.3, Red Cell Distribution Width 11.7, Platelet Count 368, Mean Platelet Volume 6.1L, Neutrophils (%) (Auto) 64.4, Lymphocytes ( %) (Auto) 19.3L, Monocytes (%) (Auto) 14.4H, Eosinophils (%) (Auto) 1.0, Basophils (%) (Auto) 0.9, Prothrombin Time 9.9, Prothromb Time International Ratio 0.9, Activated Partial Thromboplast Time 34H, Sodium Level 135, Potassium Level 4.1, Chloride Level 96L, Carbon Dioxide Level 24, Anion Gap 15, Blood Urea Nitrogen 11, Creatinine 0.9, Estimat Glomerular Filtration Rate > 60, Glucose Level 107H, Calcium Level 9.3, Total Bilirubin 0.5, Aspartate Amino Transf (AST/SGOT) 10, Alanine Aminotransferase (ALT/SGPT) 6, Alkaline Phosphatase 51, Total Protein 7.1, Albumin 3.3L, Globulin 3.8, Albumin/Globulin Ratio 0.8L Current Medications Medications (Trade) Dose Ordered Sig/Agnes Route PRN Reason Start Time Stop Time Status Last Admin Dose Admin Acetaminophen (Tylenol) 650 mg Q4H PRN ORAL Mild Pain (Pain Scale 1-3) 12/15/16 19:15 01/14/17 19:14 Acetaminophen (Tylenol) 650 mg Q4H PRN ORAL fever 12/15/16 19:45 01/14/17 19:44 Al Hydroxide/Mg Hydroxide (Mylanta II) 30 ml Q6H PRN ORAL dyspepsia 12/15/16 19:45 01/14/17 19:44 Bisacodyl (Dulcolax) 10 mg HSPRN PRN RECTAL Constipation 12/15/16 19:15 01/14/17 19:14 Dextrose STAT PRN IV Hypoglycemia 12/15/16 19:45 01/14/17 19:44 Diphenhydramine HCl (Benadryl) 25 mg Q6H PRN ORAL Itching/Pruritis 12/15/16 19:45 01/14/17 19:44 Finasteride (Proscar) 5 mg DAILY ORAL 12/16/16 09:00 01/15/17 08:59 12/21/16 10:09 Iron Sucrose 100 mg/Sodium Chloride 60 ml @ 240 mls/hr BEDTIME IVPB 12/19/16 21:00 12/21/16 21:14 12/20/16 21:31 Lactated Ringer's (Lactated Ringer's 1000ml) 1,000 ml @ 100 mls/hr Q10H IV 12/20/16 12:30 01/19/17 12:29 12/20/16 13:15 Losartan Potassium (Cozaar) 25 mg DAILY ORAL 12/16/16 09:00 01/15/17 08:59 12/21/16 10:09 Magnesium Hydroxide (Mom) 30 ml HSPRN PRN ORAL Constipation 12/15/16 19:15 01/14/17 19:14 Morphine Sulfate (Morphine Sulfate) 1 mg Q4H PRN IVP For Pain 12/15/16 19:15 12/22/16 19:14 Morphine Sulfate (Morphine Sulfate) 2 mg Q4H PRN IVP Moderate Pain (Pain Scale 4-6) 12/15/16 19:15 12/22/16 19:14 12/16/16 12:24 Morphine Sulfate (Morphine Sulfate) 4 mg Q4H PRN IVP Severe Pain (Pain Scale 7-10) 12/15/16 19:15 12/22/16 19:14 12/21/16 04:58 Nitroglycerin (Ntg) 0.4 mg Q5M X 3 DOSES PRN SL Prn Chest Pain 12/15/16 19:45 01/14/17 19:44 Ondansetron HCl (Zofran) 4 mg Q6H PRN IVP Nausea & Vomiting 12/15/16 19:45 01/14/17 19:44 Pantoprazole (Protonix) 40 mg DAILY IVP 12/16/16 09:00 01/15/17 08:59 12/21/16 10:09 Piperacillin Sod/ Tazobactam Sod/ Dextrose (Zosyn/D5W) 110 ml @ 27.5 mls/hr EVERY 8 HOURS IVPB 12/15/16 22:00 12/22/16 21:59 12/21/16 04:59 Polyethylene Glycol (Miralax) 17 gm HSPRN PRN ORAL Constipation 12/15/16 19:45 01/14/17 19:44 Tamsulosin HCl 0.4 mg 0.4 mg BEDTIME ORAL 12/16/16 21:00 01/15/17 20:59 12/20/16 21:31 Temazepam (Restoril) 15 mg HSPRN PRN ORAL Insomnia 12/15/16 19:45 12/22/16 19:44 WU CABRERA Dec 21, 2016 14:55
[2016-12-21] MEDS ORDERED: LR 1000ml 1,000 ML IVLG SCH (15:10)
[2016-12-21] MEDS ORDERED: NS Irrig 1000ml IRRIG ONE (15:11)
[2016-12-21] MEDS ORDERED: fentaNYL 100 mcg/2 mL IV PRN (15:15)
[2016-12-21] MEDS ORDERED: Hydromorphone 0.5mg/0.5ml inj IVP PRN (15:15)
[2016-12-21] MEDS ORDERED: Midazolam 2mg/2ml Inj IVP PRN (15:15)
[2016-12-21] MEDS ORDERED: Ketorolac 30mg Inj IV PRN (15:15)
[2016-12-21] MEDS ORDERED: DiphenhydrAMINE 50mg/ml Inj IVP PRN (15:15)
[2016-12-21] MEDS ORDERED: Metoclopramide 10mg/2ml Inj IVP PRN (15:15)
[2016-12-21] MEDS ORDERED: LORazepam Inj 2mg/ml 1ml IV PRN (15:15)
[2016-12-21] MEDS ORDERED: Thrombin 5000 units spray kit TOPIC ONE (15:24)
[2016-12-21] MEDS ORDERED: Gelfoam Absorbable 1gm powder pkt TOPIC ONE ×2 (15:24→15:33)
[2016-12-21] MEDS ORDERED: Surgicel 4in x 8in TOPIC ONE (15:24)
--- NOTE | 2016-12-21 16:14 | Brief Operative Note ---
Immediate Post Operative Note Operative Note Pre-op Diagnosis: acute cholecystitis Procedure: lap matthieu Surgeon: bro Anesthesiologist: charles Specimen: yes - gallbladder Complications: none Condition: stable Fluids: see records Estimated Blood Loss: volume - 25 Drains: none Implant(s) used?: No Serafin Mcdonough Dec 21, 2016 16:14
[2016-12-21] MEDS ORDERED: Norco 5mg/325mg tab ORAL PRN (16:15)
[2016-12-21] MEDS ORDERED: Norco 10mg/325mg tab ORAL PRN (16:15)
--- NOTE | 2016-12-21 16:19 | Immediate Post-Op Evaluation ---
Immediate Post-Op Evalulation Immediate Post-Op Evalulation Procedure: Laparoscopic cholecystectomy Date of Evaluation: Dec 21, 2016 Time of Evaluation: 16:20 IV Fluids: 1L Blood Products: 0 Estimated Blood Loss: 20 Urinary Output: 0 Blood Pressure Systolic: 160 Blood Pressure Diastolic: 94 Pulse Rate: 95 Respiratory Rate: 16 O2 Sat by Pulse Oximetry: 99 Temperature (Fahrenheit): 98.7 Pain Score (1-10): 0 Nausea: No Vomiting: No Complications 0 Patient Status: awake, reacts, none Hydration Status: adequate Drug: Ancef 2g Given Within 1 Hr of Incision: Yes Time Given: 14:30 SHIRLENE CHEN M.D. Dec 21, 2016 16:19
[2016-12-21] MEDS ORDERED: Morphine Sulfate 2mg/ml Inj IVP PRN ×2 (16:51)
--- NOTE | 2016-12-21 18:26 | Infectious Diseases Prog Note ---
Assessment/Plan Assessment/Plan A The patient is a 61-year-old male with Cholecystitis, SP Laparoscopic cholecystectomy HIDA " Nonvisualization of gallbladder RUQ abd ain Seizure. Hypertension. History of appendectomy. History of BPH. History of right knee replacement PLAN: continue the patient on IV Zosyn day # - 10 ( may stop ABrx in AM ) Monitor CBC. Monitor BMP. Monitor blood culture Subjective Allergies: Coded Allergies: No Known Allergies (Unverified , 08/17/13) Subjective SP Sx Objective Vital Signs Last 24 Hour Vital Signs Date Time Temp Pulse Resp B/P Pulse Ox O2 Delivery O2 Flow Rate FiO2 12/21/16 17:20 98.0 81 18 127/85 99 Nasal Cannula 3.0 12/21/16 17:04 84 15 125/83 99 Nasal Cannula 3.0 12/21/16 16:55 87 19 129/86 99 Nasal Cannula 3.0 12/21/16 16:40 88 15 126/77 99 Nasal Cannula 3.0 12/21/16 16:25 87 15 122/84 99 Nasal Cannula 3.0 12/21/16 16:20 89 17 141/87 99 Simple Mask 6.0 12/21/16 16:19 95 16 99 12/21/16 16:15 98.7 95 14 160/94 99 Simple Mask 6.0 12/21/16 12:02 97.7 79 16 115/82 100 Room Air 12/21/16 10:09 142/73 12/21/16 07:53 98.1 77 14 142/73 99 Nasal Cannula 12/21/16 05:35 98.2 12/21/16 04:00 98.2 79 20 107/63 97 Room Air 12/20/16 23:57 98.1 72 20 123/74 98 Room Air 12/20/16 20:00 98.1 78 19 125/76 98 Room Air Height (Feet): 6 Height (Inches): 1.00 Weight (Pounds): 191 HEENT: anicteric Respiratory/Chest: normal breath sounds Cardiovascular: normal rate Abdomen: no mass Laboratory Tests Test 12/21/16 06:05 White Blood Count 6.8 K/UL (4.8-10.8) Red Blood Count 3.35 M/UL (4.70-6.10) L Hemoglobin 11.3 G/DL (14.2-18.0) L Hematocrit 32.8 % (42.0-52.0) L Mean Corpuscular Volume 98 FL (80-99) Mean Corpuscular Hemoglobin 33.6 PG (27.0-31.0) H Mean Corpuscular Hemoglobin Concent 34.3 G/DL (32.0-36.0) Red Cell Distribution Width 11.7 % (11.6-14.8) Platelet Count 368 K/UL (150-450) Mean Platelet Volume 6.1 FL (6.5-10.1) L Neutrophils (%) (Auto) 64.4 % (45.0-75.0) Lymphocytes (%) (Auto) 19.3 % (20.0-45.0) L Monocytes (%) (Auto) 14.4 % (1.0-10.0) H Eosinophils (%) (Auto) 1.0 % (0.0-3.0) Basophils (%) (Auto) 0.9 % (0.0-2.0) Prothrombin Time 9.9 SEC (9.30-11.50) Prothromb Time International Ratio 0.9 (0.9-1.1) Activated Partial Thromboplast Time 34 SEC (23-33) H Sodium Level 135 mEQ/L (135-145) Potassium Level 4.1 mEQ/L (3.4-4.9) Chloride Level 96 mEQ/L (98-107) L Carbon Dioxide Level 24 mEQ/L (20-30) Anion Gap 15 (5-15) Blood Urea Nitrogen 11 mg/dL (7-23) Creatinine 0.9 mg/dL (0.7-1.2) Estimat Glomerular Filtration Rate > 60 mL/min (>60) Glucose Level 107 mg/dL (74-106) H Calcium Level 9.3 mg/dL (8.6-10.2) Total Bilirubin 0.5 mg/dL (0.0-1.2) Aspartate Amino Transf (AST/SGOT) 10 U/L (5-40) Alanine Aminotransferase (ALT/SGPT) 6 U/L (3-41) Alkaline Phosphatase 51 U/L (40-129) Total Protein 7.1 g/dL (6.6-8.7) Albumin 3.3 g/dL (3.5-5.2) L Globulin 3.8 g/dL Albumin/Globulin Ratio 0.8 (1.0-2.7) L Current Medications Medications (Trade) Dose Ordered Sig/Agnes Route PRN Reason Start Time Stop Time Status Last Admin Dose Admin Acetaminophen (Tylenol) 650 mg Q4H PRN ORAL Mild Pain (Pain Scale 1-3) 12/15/16 19:15 01/14/17 19:14 Acetaminophen (Tylenol) 650 mg Q4H PRN ORAL fever 12/15/16 19:45 01/14/17 19:44 Acetaminophen (Tylenol) 650 mg Q4H PRN ORAL Mild Pain (Pain Scale 1-3) 12/21/16 15:15 12/21/16 19:00 Acetaminophen/ Hydrocodone Bitart ([place] 10/325) 1 ea Q4H PRN ORAL Severe Pain (Pain Scale 7-10) 12/21/16 16:15 12/28/16 16:14 Acetaminophen/ Hydrocodone Bitart ([place] 5/325) 1 tab Q4H PRN ORAL Moderate Pain (Pain Scale 4-6) 12/21/16 16:15 12/28/16 16:14 Al Hydroxide/Mg Hydroxide (Mylanta II) 30 ml Q6H PRN ORAL dyspepsia 12/15/16 19:45 01/14/17 19:44 Bisacodyl (Dulcolax) 10 mg HSPRN PRN RECTAL Constipation 12/15/16 19:15 01/14/17 19:14 Dextrose STAT PRN IV Hypoglycemia 12/15/16 19:45 01/14/17 19:44 Diphenhydramine HCl (Benadryl) 25 mg Q15M PRN IVP Itching 12/21/16 15:15 12/21/16 19:00 Diphenhydramine HCl (Benadryl) 25 mg Q6H PRN ORAL Itching/Pruritis 12/15/16 19:45 01/14/17 19:44 Fentanyl Citrate (Sublimaze 100 mcg/2 mL) 25 mcg Q10M PRN IV Moderate Pain (Pain Scale 4-6) 12/21/16 15:15 12/21/16 19:00 Finasteride (Proscar) 5 mg DAILY ORAL 12/16/16 09:00 01/15/17 08:59 12/21/16 10:09 Hydralazine HCl (Apresoline) 5 mg Q30M PRN IV SBP>160 OR___/DBP>90 OR___ 12/21/16 15:15 12/21/16 19:00 Hydromorphone HCl (Dilaudid) 0.5 mg Q15M PRN IVP Severe Pain (Pain Scale 7-10) 12/21/16 15:15 12/21/16 19:00 12/21/16 17:04 Iron Sucrose 100 mg/Sodium Chloride 60 ml @ 240 mls/hr BEDTIME IVPB 12/19/16 21:00 12/21/16 21:14 12/20/16 21:31 Ketorolac Tromethamine (Toradol 30mg) 15 mg Q1H PRN IV Moderate Breakthru Pain (5-7) 12/21/16 15:15 12/21/16 19:00 Lactated Ringer's (Lactated Ringer's 1000ml) 1,000 ml @ 100 mls/hr Q10H IV 12/20/16 12:30 01/19/17 12:29 12/20/16 13:15 Lorazepam (Ativan 2mg/ml 1ml) 1 mg Q15M PRN IV For Anxiety 12/21/16 15:15 12/21/16 19:00 Losartan Potassium (Cozaar) 25 mg DAILY ORAL 12/16/16 09:00 01/15/17 08:59 12/21/16 10:09 Magnesium Hydroxide (Mom) 30 ml HSPRN PRN ORAL Constipation 12/15/16 19:15 01/14/17 19:14 Metoclopramide HCl (Reglan) 10 mg Q1H PRN IVP Nausea & Vomiting 12/21/16 15:15 12/21/16 19:00 Midazolam HCl (Versed 2mg/2ml vial) 1 mg Q15M PRN IVP For Anxiety 12/21/16 15:15 12/21/16 19:00 Morphine Sulfate (Morphine Sulfate) 1 mg Q4H PRN IVP For Mild Pain 12/21/16 16:51 12/22/16 19:14 Morphine Sulfate (Morphine Sulfate) 2 mg Q4H PRN IVP Moderate Pain (Pain Scale 4-6) 12/21/16 16:51 12/22/16 19:14 Morphine Sulfate (Morphine Sulfate) 4 mg Q4H PRN IVP Severe Pain (Pain Scale 7-10) 12/21/16 16:51 12/22/16 19:14 Nitroglycerin (Ntg) 0.4 mg Q5M X 3 DOSES PRN SL Prn Chest Pain 12/15/16 19:45 01/14/17 19:44 Ondansetron HCl (Zofran) 4 mg Q1H PRN IVP Nausea & Vomiting 12/21/16 15:15 12/21/16 19:00 Ondansetron HCl (Zofran) 4 mg Q6H PRN IVP Nausea & Vomiting 12/15/16 19:45 01/14/17 19:44 Pantoprazole (Protonix) 40 mg DAILY IVP 12/16/16 09:00 01/15/17 08:59 12/21/16 10:09 Piperacillin Sod/ Tazobactam Sod/ Dextrose (Zosyn/D5W) 110 ml @ 27.5 mls/hr EVERY 8 HOURS IVPB 12/15/16 22:00 12/22/16 21:59 12/21/16 04:59 Polyethylene Glycol (Miralax) 17 gm HSPRN PRN ORAL Constipation 12/15/16 19:45 01/14/17 19:44 Tamsulosin HCl 0.4 mg 0.4 mg BEDTIME ORAL 12/16/16 21:00 01/15/17 20:59 12/20/16 21:31 Temazepam (Restoril) 15 mg HSPRN PRN ORAL Insomnia 12/15/16 19:45 12/22/16 19:44 BABATNUDE BRAGG M.D. Dec 21, 2016 18:26
[2016-12-21] MEDS: Iron Sucrose 100 MG in NS 55 ML IVPB SCH (20:27)
[2016-12-21] MEDS: Tamsulosin 0.4mg cap ORAL SCH (20:27)
[2016-12-22] VITALS: BP 142/92
[2016-12-22] MEDS: LR 1000ml 1,000 ML IV SCH (02:06)
[2016-12-22] MEDS: Morphine Sulfate 4mg/ml Inj IVP PRN ×3 (02:06→10:28)
[2016-12-22 04:00] VITALS: BP 127/80
[2016-12-22] MEDS: Piperacillin/Tazobactam 3.375 GM in D5W 110 ML IVPB SCH (05:58)
[2016-12-22 06:34] LABS: BASOPHILS % (AUTO) 0.5 % (0.0-2.0); LYMPHOCYTES % (AUTO) 9.1 % (20.0-45.0); MEAN CORPUSCULAR HEMOGLOBIN 33.7 PG (27.0-31.0); MEAN CORPUSCULAR HGB CONC 34.4 G/DL (32.0-36.0); MEAN CORPUSCULAR VOLUME 98 FL (80-99); MONOCYTES % (AUTO) 9.5 % (1.0-10.0); NEUTROPHILS % (AUTO) 80.9 % (45.0-75.0); PLATELET COUNT 383 K/UL (150-450); RED BLOOD COUNT 3.24 M/UL (4.70-6.10); RED CELL DISTRIBUTION WIDTH 11.5 % (11.6-14.8); WHITE BLOOD COUNT 9.8 K/UL (4.8-10.8)
[2016-12-22 06:40] LABS: PROTHROMBIN TIME 10.3 SEC (9.30-11.50)
[2016-12-22 06:49] LABS: ALANINE AMINOTRANSFERASE 11 U/L (3-41); ALBUMIN/GLOBULIN RATIO 0.8 (1.0-2.7); ANION GAP 14 (5-15); ASPARTATE AMINO TRANSFERASE 23 U/L (5-40); CALCIUM 8.9 mg/dL (8.6-10.2); CARBON DIOXIDE 24 mEQ/L (20-30); CHLORIDE 96 mEQ/L (98-107); GLOMERULAR FILTRATION RATE > 60 mL/min (>60); HEMOLYSIS 3; POTASSIUM 4.5 mEQ/L (3.4-4.9); SODIUM 134 mEQ/L (135-145); TOTAL PROTEIN 6.8 g/dL (6.6-8.7)
[2016-12-22 07:53] VITALS: BP 125/80
[2016-12-22] MEDS: Pantoprazole Inj IVP SCH (08:42)
[2016-12-22] MEDS: Losartan 25mg tab ORAL SCH (08:42)
--- NOTE | 2016-12-22 09:32 | Infectious Diseases Prog Note ---
Assessment/Plan Assessment/Plan A The patient is a 61-year-old male with Cholecystitis, SP Laparoscopic cholecystectomy 12/21 HIDA " Nonvisualization of gallbladder RUQ abd pain Seizure. Hypertension. History of appendectomy. History of BPH. History of right knee replacement PLAN: DC IV Zosyn day # 8 , ok to DC pt off of AB Rx Monitor CBC. Monitor BMP Subjective Constitutional: Denies: anorexia, chills, drenching sweats, fatigue, fever, no symptoms, other Allergies: Coded Allergies: No Known Allergies (Unverified , 08/17/13) Subjective afebrile Objective Vital Signs Last 24 Hour Vital Signs Date Time Temp Pulse Resp B/P Pulse Ox O2 Delivery O2 Flow Rate FiO2 12/22/16 08:42 125/80 12/22/16 07:53 97.5 76 16 125/80 97 Room Air 12/22/16 06:36 97.5 12/22/16 04:00 97.5 74 20 127/80 98 Room Air 12/22/16 00:00 97.2 79 20 142/92 97 Room Air 12/21/16 20:00 98.2 78 20 135/89 99 Room Air 12/21/16 17:20 98.0 81 18 127/85 99 Nasal Cannula 3.0 12/21/16 17:04 84 15 125/83 99 Nasal Cannula 3.0 12/21/16 16:55 87 19 129/86 99 Nasal Cannula 3.0 12/21/16 16:40 88 15 126/77 99 Nasal Cannula 3.0 12/21/16 16:25 87 15 122/84 99 Nasal Cannula 3.0 12/21/16 16:20 89 17 141/87 99 Simple Mask 6.0 12/21/16 16:19 95 16 99 12/21/16 16:15 98.7 95 14 160/94 99 Simple Mask 6.0 12/21/16 12:02 97.7 79 16 115/82 100 Room Air 12/21/16 10:09 142/73 Height (Feet): 6 Height (Inches): 1.00 Weight (Pounds): 191 HEENT: mucous membranes moist Respiratory/Chest: no respiratory distress Cardiovascular: regular rhythm Abdomen: non distended Laboratory Tests Test 12/22/16 05:55 White Blood Count 9.8 K/UL (4.8-10.8) Red Blood Count 3.24 M/UL (4.70-6.10) L Hemoglobin 10.9 G/DL (14.2-18.0) L Hematocrit 31.7 % (42.0-52.0) L Mean Corpuscular Volume 98 FL (80-99) Mean Corpuscular Hemoglobin 33.7 PG (27.0-31.0) H Mean Corpuscular Hemoglobin Concent 34.4 G/DL (32.0-36.0) Red Cell Distribution Width 11.5 % (11.6-14.8) L Platelet Count 383 K/UL (150-450) Mean Platelet Volume 6.0 FL (6.5-10.1) L Neutrophils (%) (Auto) 80.9 % (45.0-75.0) H Lymphocytes (%) (Auto) 9.1 % (20.0-45.0) L Monocytes (%) (Auto) 9.5 % (1.0-10.0) Eosinophils (%) (Auto) 0.0 % (0.0-3.0) Basophils (%) (Auto) 0.5 % (0.0-2.0) Prothrombin Time 10.3 SEC (9.30-11.50) Prothromb Time International Ratio 1.0 (0.9-1.1) Activated Partial Thromboplast Time 33 SEC (23-33) Sodium Level 134 mEQ/L (135-145) L Potassium Level 4.5 mEQ/L (3.4-4.9) Chloride Level 96 mEQ/L (98-107) L Carbon Dioxide Level 24 mEQ/L (20-30) Anion Gap 14 (5-15) Blood Urea Nitrogen 16 mg/dL (7-23) Creatinine 1.0 mg/dL (0.7-1.2) Estimat Glomerular Filtration Rate > 60 mL/min (>60) Glucose Level 116 mg/dL (74-106) H Calcium Level 8.9 mg/dL (8.6-10.2) Total Bilirubin 0.4 mg/dL (0.0-1.2) Aspartate Amino Transf (AST/SGOT) 23 U/L (5-40) Alanine Aminotransferase (ALT/SGPT) 11 U/L (3-41) Alkaline Phosphatase 48 U/L (40-129) Total Protein 6.8 g/dL (6.6-8.7) Albumin 3.1 g/dL (3.5-5.2) L Globulin 3.7 g/dL Albumin/Globulin Ratio 0.8 (1.0-2.7) L Current Medications Medications (Trade) Dose Ordered Sig/Agnes Route PRN Reason Start Time Stop Time Status Last Admin Dose Admin Acetaminophen (Tylenol) 650 mg Q4H PRN ORAL Mild Pain (Pain Scale 1-3) 12/15/16 19:15 01/14/17 19:14 Acetaminophen (Tylenol) 650 mg Q4H PRN ORAL fever 12/15/16 19:45 01/14/17 19:44 Acetaminophen/ Hydrocodone Bitart ([place] 10/325) 1 ea Q4H PRN ORAL Severe Pain (Pain Scale 7-10) 12/21/16 16:15 12/28/16 16:14 Acetaminophen/ Hydrocodone Bitart ([place] 5/325) 1 tab Q4H PRN ORAL Moderate Pain (Pain Scale 4-6) 12/21/16 16:15 12/28/16 16:14 Al Hydroxide/Mg Hydroxide (Mylanta II) 30 ml Q6H PRN ORAL dyspepsia 12/15/16 19:45 01/14/17 19:44 Bisacodyl (Dulcolax) 10 mg HSPRN PRN RECTAL Constipation 12/15/16 19:15 01/14/17 19:14 Dextrose STAT PRN IV Hypoglycemia 12/15/16 19:45 01/14/17 19:44 Diphenhydramine HCl (Benadryl) 25 mg Q6H PRN ORAL Itching/Pruritis 12/15/16 19:45 01/14/17 19:44 Finasteride (Proscar) 5 mg DAILY ORAL 12/16/16 09:00 01/15/17 08:59 12/22/16 08:42 Lactated Ringer's (Lactated Ringer's 1000ml) 1,000 ml @ 100 mls/hr Q10H IV 12/20/16 12:30 01/19/17 12:29 12/22/16 02:06 Losartan Potassium (Cozaar) 25 mg DAILY ORAL 12/16/16 09:00 01/15/17 08:59 12/22/16 08:42 Magnesium Hydroxide (Mom) 30 ml HSPRN PRN ORAL Constipation 12/15/16 19:15 01/14/17 19:14 Morphine Sulfate (Morphine Sulfate) 1 mg Q4H PRN IVP For Mild Pain 12/21/16 16:51 12/22/16 19:14 Morphine Sulfate (Morphine Sulfate) 2 mg Q4H PRN IVP Moderate Pain (Pain Scale 4-6) 12/21/16 16:51 12/22/16 19:14 Morphine Sulfate (Morphine Sulfate) 4 mg Q4H PRN IVP Severe Pain (Pain Scale 7-10) 12/21/16 16:51 12/22/16 19:14 12/22/16 06:03 Nitroglycerin (Ntg) 0.4 mg Q5M X 3 DOSES PRN SL Prn Chest Pain 12/15/16 19:45 01/14/17 19:44 Ondansetron HCl (Zofran) 4 mg Q6H PRN IVP Nausea & Vomiting 12/15/16 19:45 01/14/17 19:44 Pantoprazole (Protonix) 40 mg DAILY IVP 12/16/16 09:00 01/15/17 08:59 12/22/16 08:42 Piperacillin Sod/ Tazobactam Sod/ Dextrose (Zosyn/D5W) 110 ml @ 27.5 mls/hr EVERY 8 HOURS IVPB 12/15/16 22:00 12/22/16 21:59 12/22/16 05:58 Polyethylene Glycol (Miralax) 17 gm HSPRN PRN ORAL Constipation 12/15/16 19:45 01/14/17 19:44 Tamsulosin HCl 0.4 mg 0.4 mg BEDTIME ORAL 12/16/16 21:00 01/15/17 20:59 12/21/16 20:27 Temazepam (Restoril) 15 mg HSPRN PRN ORAL Insomnia 12/15/16 19:45 12/22/16 19:44 BABATUNDE BRAGG M.D. Dec 22, 2016 09:32
--- NOTE | 2016-12-22 12:11 | General Surgery Progress Note ---
General Surgery-Progress Note Subjective Symptoms: improved Objective Last 24 Hour Vital Signs Date Time Temp Pulse Resp B/P Pulse Ox O2 Delivery O2 Flow Rate FiO2 12/22/16 08:42 125/80 12/22/16 07:53 97.5 76 16 125/80 97 Room Air 12/22/16 06:36 97.5 12/22/16 04:00 97.5 74 20 127/80 98 Room Air 12/22/16 00:00 97.2 79 20 142/92 97 Room Air 12/21/16 20:00 98.2 78 20 135/89 99 Room Air 12/21/16 17:20 98.0 81 18 127/85 99 Nasal Cannula 3.0 12/21/16 17:04 84 15 125/83 99 Nasal Cannula 3.0 12/21/16 16:55 87 19 129/86 99 Nasal Cannula 3.0 12/21/16 16:40 88 15 126/77 99 Nasal Cannula 3.0 12/21/16 16:25 87 15 122/84 99 Nasal Cannula 3.0 12/21/16 16:20 89 17 141/87 99 Simple Mask 6.0 12/21/16 16:19 95 16 99 12/21/16 16:15 98.7 95 14 160/94 99 Simple Mask 6.0 I&O Intake and Output 12/21/16 12/22/16 19:00 07:00 Intake Total 1155.0 ml 670.0 ml Output Total 20 ml 750 ml Balance 1135.0 ml -80.0 ml IV Total 1155.0 ml 670.0 ml Output Urine Total 750 ml Estimated Blood Loss 20 ml Dressing: dry Wound: clean Drains: none Cardiovascular: RSR Respiratory: clear Abdomen: soft Extremities: no edema Laboratory Tests Test 12/22/16 05:55 White Blood Count 9.8 K/UL (4.8-10.8) Red Blood Count 3.24 M/UL (4.70-6.10) L Hemoglobin 10.9 G/DL (14.2-18.0) L Hematocrit 31.7 % (42.0-52.0) L Mean Corpuscular Volume 98 FL (80-99) Mean Corpuscular Hemoglobin 33.7 PG (27.0-31.0) H Mean Corpuscular Hemoglobin Concent 34.4 G/DL (32.0-36.0) Red Cell Distribution Width 11.5 % (11.6-14.8) L Platelet Count 383 K/UL (150-450) Mean Platelet Volume 6.0 FL (6.5-10.1) L Neutrophils (%) (Auto) 80.9 % (45.0-75.0) H Lymphocytes (%) (Auto) 9.1 % (20.0-45.0) L Monocytes (%) (Auto) 9.5 % (1.0-10.0) Eosinophils (%) (Auto) 0.0 % (0.0-3.0) Basophils (%) (Auto) 0.5 % (0.0-2.0) Prothrombin Time 10.3 SEC (9.30-11.50) Prothromb Time International Ratio 1.0 (0.9-1.1) Activated Partial Thromboplast Time 33 SEC (23-33) Sodium Level 134 mEQ/L (135-145) L Potassium Level 4.5 mEQ/L (3.4-4.9) Chloride Level 96 mEQ/L (98-107) L Carbon Dioxide Level 24 mEQ/L (20-30) Anion Gap 14 (5-15) Blood Urea Nitrogen 16 mg/dL (7-23) Creatinine 1.0 mg/dL (0.7-1.2) Estimat Glomerular Filtration Rate > 60 mL/min (>60) Glucose Level 116 mg/dL (74-106) H Calcium Level 8.9 mg/dL (8.6-10.2) Total Bilirubin 0.4 mg/dL (0.0-1.2) Aspartate Amino Transf (AST/SGOT) 23 U/L (5-40) Alanine Aminotransferase (ALT/SGPT) 11 U/L (3-41) Alkaline Phosphatase 48 U/L (40-129) Total Protein 6.8 g/dL (6.6-8.7) Albumin 3.1 g/dL (3.5-5.2) L Globulin 3.7 g/dL Albumin/Globulin Ratio 0.8 (1.0-2.7) L Assessment Post-op Diagnosis cholecystitis with cholelithiasis Plan Additional Comments Will discharge home today, follow up with Dr Mcdonough on 12-26-16, call [phone] for appointment. Rx: [place] 5-325 q 4-6 h prn pain. Richi Hoyt MD Dec 22, 2016 12:11
[2016-12-22] MEDS ORDERED: NORCO 5-325 TA1 EAC1 ORAL (12:13)
[2016-12-22 12:18] VITALS: BP 140/95
--- NOTE | 2016-12-22 13:08 | GI Progress Note ---
Assessment/Plan Problems: (1) LFT elevation ICD Codes: R94.5 - Abnormal results of liver function studies SNOMED: 356581679 (2) Anemia ICD Codes: D64.9 - Anemia, unspecified SNOMED: 764943611 (3) Cholecystitis ICD Codes: K81.9 - Cholecystitis, unspecified SNOMED: 22862218, 09028728 (4) Abdominal pain ICD Codes: R10.9 - Unspecified abdominal pain SNOMED: 57897527, 86529262 Qualifiers: Qualified Codes: R10.11 - Right upper quadrant pain Status: stable Status Narrative Discussed with Dr. Andrew. Assessment/Plan APCT reviewed >> Distended gallbladder with stones, possible mild mural thickening. fu abdominal U/S HIDA reviewed >> cystic duct obstruction lipase WNL iron deficiency >> venofer s/p cholecystectomy >> will be discharged today per surgery diet pain mgmt ppi fu labs outpatient colonoscopy Subjective Subjective abdominal pain resolved wants to go home Objective Last 24 Hour Vital Signs Date Time Temp Pulse Resp B/P Pulse Ox O2 Delivery O2 Flow Rate FiO2 12/22/16 12:18 97.7 71 16 140/95 99 Room Air 12/22/16 08:42 125/80 12/22/16 07:53 97.5 76 16 125/80 97 Room Air 12/22/16 06:36 97.5 12/22/16 04:00 97.5 74 20 127/80 98 Room Air 12/22/16 00:00 97.2 79 20 142/92 97 Room Air 12/21/16 20:00 98.2 78 20 135/89 99 Room Air 12/21/16 17:20 98.0 81 18 127/85 99 Nasal Cannula 3.0 12/21/16 17:04 84 15 125/83 99 Nasal Cannula 3.0 12/21/16 16:55 87 19 129/86 99 Nasal Cannula 3.0 12/21/16 16:40 88 15 126/77 99 Nasal Cannula 3.0 12/21/16 16:25 87 15 122/84 99 Nasal Cannula 3.0 12/21/16 16:20 89 17 141/87 99 Simple Mask 6.0 12/21/16 16:19 95 16 99 12/21/16 16:15 98.7 95 14 160/94 99 Simple Mask 6.0 Intake and Output 12/21/16 12/22/16 19:00 07:00 Intake Total 1155.0 ml 670.0 ml Output Total 20 ml 750 ml Balance 1135.0 ml -80.0 ml IV Total 1155.0 ml 670.0 ml Output Urine Total 750 ml Estimated Blood Loss 20 ml Laboratory Tests Test 12/22/16 05:55 White Blood Count 9.8 K/UL (4.8-10.8) Red Blood Count 3.24 M/UL (4.70-6.10) L Hemoglobin 10.9 G/DL (14.2-18.0) L Hematocrit 31.7 % (42.0-52.0) L Mean Corpuscular Volume 98 FL (80-99) Mean Corpuscular Hemoglobin 33.7 PG (27.0-31.0) H Mean Corpuscular Hemoglobin Concent 34.4 G/DL (32.0-36.0) Red Cell Distribution Width 11.5 % (11.6-14.8) L Platelet Count 383 K/UL (150-450) Mean Platelet Volume 6.0 FL (6.5-10.1) L Neutrophils (%) (Auto) 80.9 % (45.0-75.0) H Lymphocytes (%) (Auto) 9.1 % (20.0-45.0) L Monocytes (%) (Auto) 9.5 % (1.0-10.0) Eosinophils (%) (Auto) 0.0 % (0.0-3.0) Basophils (%) (Auto) 0.5 % (0.0-2.0) Prothrombin Time 10.3 SEC (9.30-11.50) Prothromb Time International Ratio 1.0 (0.9-1.1) Activated Partial Thromboplast Time 33 SEC (23-33) Sodium Level 134 mEQ/L (135-145) L Potassium Level 4.5 mEQ/L (3.4-4.9) Chloride Level 96 mEQ/L (98-107) L Carbon Dioxide Level 24 mEQ/L (20-30) Anion Gap 14 (5-15) Blood Urea Nitrogen 16 mg/dL (7-23) Creatinine 1.0 mg/dL (0.7-1.2) Estimat Glomerular Filtration Rate > 60 mL/min (>60) Glucose Level 116 mg/dL (74-106) H Calcium Level 8.9 mg/dL (8.6-10.2) Total Bilirubin 0.4 mg/dL (0.0-1.2) Aspartate Amino Transf (AST/SGOT) 23 U/L (5-40) Alanine Aminotransferase (ALT/SGPT) 11 U/L (3-41) Alkaline Phosphatase 48 U/L (40-129) Total Protein 6.8 g/dL (6.6-8.7) Albumin 3.1 g/dL (3.5-5.2) L Globulin 3.7 g/dL Albumin/Globulin Ratio 0.8 (1.0-2.7) L Height (Feet): 6 Height (Inches): 1.00 Weight (Pounds): 191 General Appearance: no apparent distress, alert Cardiovascular: normal rate Respiratory/Chest: normal breath sounds, no respiratory distress Abdominal Exam: normal bowel sounds, non tender, soft Acacia Bright N.P. Dec 22, 2016 13:08
--- NOTE | 2016-12-22 13:26 | Pulmonology Progress Note ---
Assessment/Plan Problems: (1) Cholecystitis (2) LFT elevation (3) BPH (benign prostatic hyperplasia) (4) HTN (hypertension) Assessment/Plan no new events tolerated surgery tolerating diet dc home Subjective ROS Limited/Unobtainable: No Constitutional: Reports: no symptoms HEENT: Repors: no symptoms Allergies: Coded Allergies: No Known Allergies (Unverified , 08/17/13) Objective Last 24 Hour Vital Signs Date Time Temp Pulse Resp B/P Pulse Ox O2 Delivery O2 Flow Rate FiO2 12/22/16 12:18 97.7 71 16 140/95 99 Room Air 12/22/16 08:42 125/80 12/22/16 07:53 97.5 76 16 125/80 97 Room Air 12/22/16 06:36 97.5 12/22/16 04:00 97.5 74 20 127/80 98 Room Air 12/22/16 00:00 97.2 79 20 142/92 97 Room Air 12/21/16 20:00 98.2 78 20 135/89 99 Room Air 12/21/16 17:20 98.0 81 18 127/85 99 Nasal Cannula 3.0 12/21/16 17:04 84 15 125/83 99 Nasal Cannula 3.0 12/21/16 16:55 87 19 129/86 99 Nasal Cannula 3.0 12/21/16 16:40 88 15 126/77 99 Nasal Cannula 3.0 12/21/16 16:25 87 15 122/84 99 Nasal Cannula 3.0 12/21/16 16:20 89 17 141/87 99 Simple Mask 6.0 12/21/16 16:19 95 16 99 12/21/16 16:15 98.7 95 14 160/94 99 Simple Mask 6.0 Intake and Output 12/21/16 12/22/16 19:00 07:00 Intake Total 1155.0 ml 670.0 ml Output Total 20 ml 750 ml Balance 1135.0 ml -80.0 ml IV Total 1155.0 ml 670.0 ml Output Urine Total 750 ml Estimated Blood Loss 20 ml Objective General Appearance: WD/WN HEENT: normocephalic, atraumatic Respiratory/Chest: chest wall non-tender, lungs clear Cardiovascular: normal peripheral pulses, normal rate Abdomen: normal bowel sounds, soft, non tender, no organomegaly Extremities: no cyanosis, no clubbing Skin: no rash Laboratory Tests 12/22/16 05:55: White Blood Count 9.8, Red Blood Count 3.24L, Hemoglobin 10.9L, Hematocrit 31.7L , Mean Corpuscular Volume 98, Mean Corpuscular Hemoglobin 33.7H, Mean Corpuscular Hemoglobin Concent 34.4, Red Cell Distribution Width 11.5L, Platelet Count 383, Mean Platelet Volume 6.0L, Neutrophils (%) (Auto) 80.9H, Lymphocytes (%) (Auto) 9.1L, Monocytes (%) (Auto) 9.5, Eosinophils (%) (Auto) 0.0, Basophils (%) (Auto) 0.5, Prothrombin Time 10.3, Prothromb Time International Ratio 1.0, Activated Partial Thromboplast Time 33, Sodium Level 134L, Potassium Level 4.5, Chloride Level 96L, Carbon Dioxide Level 24, Anion Gap 14, Blood Urea Nitrogen 16, Creatinine 1.0, Estimat Glomerular Filtration Rate > 60, Glucose Level 116H, Calcium Level 8.9, Total Bilirubin 0.4, Aspartate Amino Transf (AST/SGOT) 23, Alanine Aminotransferase (ALT/SGPT) 11, Alkaline Phosphatase 48, Total Protein 6.8, Albumin 3.1L, Globulin 3.7, Albumin/ Globulin Ratio 0.8L Current Medications Medications (Trade) Dose Ordered Sig/Agnes Route PRN Reason Start Time Stop Time Status Last Admin Dose Admin Acetaminophen (Tylenol) 650 mg Q4H PRN ORAL Mild Pain (Pain Scale 1-3) 12/15/16 19:15 01/14/17 19:14 Acetaminophen (Tylenol) 650 mg Q4H PRN ORAL fever 12/15/16 19:45 01/14/17 19:44 Acetaminophen/ Hydrocodone Bitart ([place] 10/325) 1 ea Q4H PRN ORAL Severe Pain (Pain Scale 7-10) 12/21/16 16:15 12/28/16 16:14 Acetaminophen/ Hydrocodone Bitart ([place] 5/325) 1 tab Q4H PRN ORAL Moderate Pain (Pain Scale 4-6) 12/21/16 16:15 12/28/16 16:14 Al Hydroxide/Mg Hydroxide (Mylanta II) 30 ml Q6H PRN ORAL dyspepsia 12/15/16 19:45 01/14/17 19:44 Bisacodyl (Dulcolax) 10 mg HSPRN PRN RECTAL Constipation 12/15/16 19:15 01/14/17 19:14 Dextrose (Dextrose 50%) STAT PRN IV Hypoglycemia 12/15/16 19:45 01/14/17 19:44 Diphenhydramine HCl (Benadryl) 25 mg Q6H PRN ORAL Itching/Pruritis 12/15/16 19:45 01/14/17 19:44 Finasteride (Proscar) 5 mg DAILY ORAL 12/16/16 09:00 01/15/17 08:59 12/22/16 08:42 Lactated Ringer's (Lactated Ringer's 1000ml) 1,000 ml @ 100 mls/hr Q10H IV 12/20/16 12:30 01/19/17 12:29 12/22/16 02:06 Losartan Potassium (Cozaar) 25 mg DAILY ORAL 12/16/16 09:00 01/15/17 08:59 12/22/16 08:42 Magnesium Hydroxide (Mom) 30 ml HSPRN PRN ORAL Constipation 12/15/16 19:15 01/14/17 19:14 Morphine Sulfate (Morphine Sulfate) 1 mg Q4H PRN IVP For Mild Pain 12/21/16 16:51 12/22/16 19:14 Morphine Sulfate (Morphine Sulfate) 2 mg Q4H PRN IVP Moderate Pain (Pain Scale 4-6) 12/21/16 16:51 12/22/16 19:14 Morphine Sulfate (Morphine Sulfate) 4 mg Q4H PRN IVP Severe Pain (Pain Scale 7-10) 12/21/16 16:51 12/22/16 19:14 12/22/16 10:28 Nitroglycerin (Ntg) 0.4 mg Q5M X 3 DOSES PRN SL Prn Chest Pain 12/15/16 19:45 01/14/17 19:44 Ondansetron HCl (Zofran) 4 mg Q6H PRN IVP Nausea & Vomiting 12/15/16 19:45 01/14/17 19:44 Pantoprazole (Protonix) 40 mg DAILY ORAL 12/23/16 09:00 01/22/17 08:59 Polyethylene Glycol (Miralax) 17 gm HSPRN PRN ORAL Constipation 12/15/16 19:45 01/14/17 19:44 Tamsulosin HCl 0.4 mg 0.4 mg BEDTIME ORAL 12/16/16 21:00 01/15/17 20:59 12/21/16 20:27 Temazepam (Restoril) 15 mg HSPRN PRN ORAL Insomnia 12/15/16 19:45 12/22/16 19:44 WU CABRERA Dec 22, 2016 13:26
[2016-12-22 18:27] VITALS: BP 148/72
--- NOTE | 2016-12-22 18:27 | 48 Hour Post Anesthesia Eval ---
Post Anesthesia Evaluation Procedure: Laparoscopic cholecystectomy Date of Evaluation: Dec 22, 2016 Time of Evaluation: 16:50 Blood Pressure Systolic: 148 0: 72 Pulse Rate: 68 Respiratory Rate: 20 Temperature (Fahrenheit): 97.6 O2 Sat by Pulse Oximetry: 98 Airway: patent Nausea: No Vomiting: No Pain Intensity: 3 Hydration Status: adequate Cardiopulmonary Status: stable Mental Status/LOC: patient returned to baseline Follow-up Care/Observations: n/a Post-Anesthesia Complications: none Follow-up care needed: ready to discharge PATRICK CROOK M.D. Dec 22, 2016 18:27
--- NOTE | 2016-12-22 23:45 | Operative Note - Dictated ---
DATE OF OPERATION: 12/21/2016 PREOPERATIVE DIAGNOSIS: Acute cholecystitis. POSTOPERATIVE DIAGNOSIS: Acute cholecystitis. OPERATION PERFORMED: Laparoscopic cholecystectomy. ATTENDING SURGEON: Serafin Mcdonough M.D. EMBROIDERY ASSISTANT: None. ANESTHESIOLOGIST: Dr. Trejo. 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 WOUND CLASSIFICATION: Class 3. ANTIBIOTICS: A 2 g Ancef given 1 hour prior to cut time. COMPLICATIONS: None. ESTIMATED BLOOD LOSS: Minimal. IV FLUIDS: Please see anesthesia record. COUNTS: Sponge and needle count correct x2. DRAINS: None. INDICATIONS FOR PROCEDURE: This is a 61-year-old male, who presents to the emergency department complaining of acute worsening right upper quadrant abdominal pain with associated nausea. The patient was worked up and found to have a HIDA scan, which identified nonvisualization of the gallbladder and blocks in the cystic duct with a large stone being noted on prior imaging likely obstructing the cystic duct and the infundibulum. The patient had a distended gallbladder with thickening of the wall. On exam, the patient had right upper quadrant tenderness persistent through hospital course. Surgery was indicated. The risks, benefits and alternative surgical intervention were discussed with the patient in detail. The patient expressed understanding and consented to surgery. OPERATIVE NOTE: The patient was taken to the operating room and placed on the operating table in supine position. Bilateral arms out. All bony prominence were well padded with gel pads. SCDs were placed. No Reich was placed given the patient had voided prior to entering the operating room. Intravenous antibiotics were administered prior to cut time. Appropriate time-out was taken identifying the patient, procedure, operating staff and surgical staff. Anesthesia was induced. The patient is intubated. The abdomen was prepped and draped in standard surgical fashion. The patient was noted to have a small umbilical hernia prior to entering the operating room. An infraumbilical incision was made and carried down to the fascia. The fascia was elevated and the prior hernia was identified and the fascia was opened a little further. Entry into the abdomen was confirmed with direct visualization without any complications. No adhesions were noted. A 12 mm blunt-tipped Tanvi trocar was inserted under direct visualization. The abdomen was then insufflated 12 to 15 mmHg without complication. The abdomen was inspected and no injuries from initial trocar placement was noted. The gallbladder was noted to be distended and taken in the right upper quadrant. No other abnormalities were identified. Secondary trocars were placed under direct visualization. Following this, the patient has a 12 mm trocar in the right epigastrium followed by 2 to 5 mm trocars in the right subcostal. The gallbladder was very thick and could not be grasped. A laparoscopic needle was inserted and the gallbladder was decompressed. Following this, the gallbladder was grasped and pulled over the dome of the liver using lateral port. A laparoscopic grasper was then placed through the midclavicular port trocar and the infundibular gallbladder grasped and directed towards the right lower quadrant. There was significant adhesions in this area as well and the large gallstone was palpable and noted to be in the neck of the gallbladder. The peritoneal lining over the gallbladder was dissected free with electrocautery and blunt dissection. This exposed closed triangle including the cystic artery duct and duct. Further dissection was able to obtain a critical view including the cystic artery duct and cystic plate. Once the critical view was obtained, the cystic artery was doubly clipped and divided followed by the cystic artery being doubly clipped and divided. Once this was completed, the gallbladder was elevated and dissected free from the liver bed using electrocautery. The gallbladder was then placed in endoscopic retrieval bag and removed through the umbilical port site. The liver bed was inspected and noted to be oozing and therefore electrocautery was used to obtain hemostasis followed by placement of FloSeal and a Surgicel. Appropriate hemostasis was obtained, prior to ending the conclusion of the procedure. Secondary trocars were removed under direct visualization. The 12 mm port site in the epigastrium was closed using a 0 Vicryl suture followed by closure of the umbilical port site using 0 PDS interrupted sutures. Skin incisions were closed using 4-0 Monocryl sutures. Dressings were applied. The patient tolerated the procedure well and was extubated and sent to the postanesthesia care unit in stable condition. Serafin Mcdonough M.D. DR: EVER JOB#: [id number] CC: GOOD
--- NOTE | 2016-12-25 12:00 | Discharge Summary 2 SIG ---
DATE OF ADMISSION: 12/15/2016 DATE OF DISCHARGE: 12/22/2016 REASON FOR ADMISSION AND HISTORY OF PRESENT ILLNESS: This is a 61-year-old male presented with complaint of right-sided mid abdominal pain for three days. The patient was afebrile with stable vital signs. There is no leukocytosis. Stable LFT. CT of the abdomen and pelvis revealed very distended gallbladder with wall thickening, pericholecystic fluid and large gallstone in the neck of the gallbladder. Surgeon seen the patient in the emergency department. On exam, he demonstrated Patel sign. Due to the results the CT scan and physical exam, not resolving pain for 72 hours. The patient was admitted for further monitoring and evaluation and possible surgery. ADMITTING DIAGNOSES: Include 1. Right upper quadrant abdominal pain, possible acute cholecystitis. 2. Hypertension. 3. Benign prostatic hypertrophy. HOSPITAL COURSE: The patient was admitted. The patient initially NPO, started on IV fluids. Pain management provided. Surgery followed the patient. Also called ID consult and GI consult. Subsequently, abdominal ultrasound was ordered. HIDA scan revealed cystic duct obstruction. The patient was scheduled for surgery. The patient subsequently undergone laparoscopic cholecystectomy on 12/21/2016, course of recovery was uneventful. Pain was controlled. Able to tolerate diet. Surgeon cleared for discharge. The patient status post empiric treatment with Zosyn. ID cleared the patient off antibiotics. Likely again to reiterate, lipase was within normal limits. The patient had anemia workup revealed iron-deficiency anemia. CEA was negative. The patient was on PPI. Diet slowly advanced, able to tolerate. DVT prophylaxis provided. Recommended outpatient colonoscopy. The patient was stable for discharge. Anemia workup revealed iron-deficiency anemia and hemoglobin 10.9 and hematocrit 31.7 prior to discharge. DISCHARGE DIAGNOSES: 1. Acute cholecystitis. 2. Status post laparoscopic cholecystectomy on 12/21/2016. 3. Hypertension. 4. Iron-deficiency anemia. 5. Benign prostatic hypertrophy. Of note, the patient was on Flomax. No difficulty with voiding. DISCHARGE MEDICATIONS: See medication reconciliation list. DISCHARGE INSTRUCTIONS: The patient discharged home. Follow up with the surgeon in clinic next week as an outpatient. Also recommended outpatient colonoscopy with GI. Amna Moss M.D. I have been assigned to dictate discharge summary on this account and I was not involved in the patient's management. Flaquita bernardoBrenda cherry DR: [place] JOB#: [id number] CC:
== END 2016-12-22 14:15 | disposition home or self-care (01) | DRG 263 ==
LOC: EMR 14:00 → EDBEDREQ 17:46 → 4E 18:05 → EDBEDREQ 18:46
PROC: 0FT44ZZ Resection of Gallbladder, Percutaneous Endoscopic Approach (ICD-10-PCS; principal; 2016-12-21 14:30)
DX: K80.00 Calculus of gallbladder with acute cholecystitis without obstruction (principal); I10 Essential (primary) hypertension; N40.1 Benign prostatic hyperplasia with lower urinary tract symptoms; R33.8 Other retention of urine; D50.9 Iron deficiency anemia, unspecified; Z96.651 Presence of right artificial knee joint; Z87.891 Personal history of nicotine dependence
CPT/HCPCS: 36415; 74177; 76700; 78266; 80048; 80053; 81003; 82150; 82248; 82378; 82607; 82728; 82746; 83540; 83550; 83690; 84439; 84443; 85025; 85044; 85610; 85730; 86850; 86900; 86901; 87040; 94003; 94150; J2250; J2405

== ENCOUNTER 2017-01-14 07:58 | Emergency (ER) | payer OTHER ==
[~2017-01-14] VITALS: Ht 185.4 cm; Wt 86.2 kg
[~2017-01-14 07:58] MED LIST changes: +GABAPENTIN100 MG ORAL; +LOSARTAN POTASS25 MG ORAL; +NORCO 5-325 TA1 EAC1 ORAL; +PROSCAR5 MG ORAL; +TAMSULOSIN HCL0.4 MG ORAL
[2017-01-14 08:07] VITALS: BP 157/94
[2017-01-14] MEDS ORDERED: PROSCAR5 MG ORAL (08:17)
[2017-01-14] MEDS ORDERED: TAMSULOSIN HCL0.4 MG ORAL (08:17)
--- NOTE | 2017-01-14 08:24 | Emergency Room Report ---
History of Present Illness General Chief Complaint: Male Urogenital Problems Source: Patient, Medical Record Present Illness HPI 61YOM [employer] walk-in with "dribbling urine" for 4 days. History of BPH, previous obstruction with vela. Ran out of finasteride/flomax. PMD supposed to Rx - sent to pharmacy "that doesnt exist anymore." Denies nausea/vomiting, abd pain, fecal retention, blood in urine Allergies: Coded Allergies: No Known Allergies (Unverified , 08/17/13) Patient History Past Medical History: other - BPH Past Surgical History: matthieu Pertinent Family History: none Social History: Denies: alcohol use, drug use, smoking Immunizations: UTD Reviewed Nursing Documentation: PMH: Agreed, PSxH: Agreed Nursing Documentation-PMH Past Medical History: No History, Except For Hx Hypertension: Yes Hx Cancer: No Hx Seizures: Yes - 4-24years. Review of Systems All Other Systems: negative except mentioned in HPI Physical Exam Vital Signs Date Time Temp Pulse Resp B/P Pulse Ox O2 Delivery O2 Flow Rate FiO2 01/14/17 08:01 97.5 80 14 157/94 99 Sp02 EP Interpretation: reviewed, normal General Appearance: normal inspection, well appearing, no apparent distress, alert, non-toxic Head: normocephalic, atraumatic ENT: normal ENT inspection, hearing grossly normal, normal voice Neck: normal inspection, full range of motion, supple, no bony tend Respiratory: normal inspection, lungs clear, normal breath sounds, no respiratory distress, no retraction, no wheezing Cardiovascular #1: regular rate, rhythm, no edema Gastrointestinal: normal inspection, normal bowel sounds, non tender, soft, no guarding, no hernia Genitourinary: no CVA tenderness, other - Mild suprapubc ttp. bedside sono shows markedly distended urinary bladdr. 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 nml as tested, speech normal Psychiatric: normal inspection, judgement/insight normal, mood/affect normal Skin: normal inspection, normal color, no rash Medical Decision Making Diagnostic Impression: Primary Impression: Urinary retention due to benign prostatic hyperplasia Additional Impressions: Urinary retention UTI (urinary tract infection) Qualified Codes: N30.01 - Acute cystitis with hematuria ER Course Urinary retention now s/p vela placement with leg bag UA: grossly infected Flomax, finasteride Rx refilled in ED Rx for UTI DC home with PMD /urology followup for vela removal in 5 days Last Vital Signs Date Time Temp Pulse Resp B/P Pulse Ox O2 Delivery O2 Flow Rate FiO2 01/14/17 08:07 97.5 80 14 157/94 99 Status: improved Disposition: HOME, SELF-CARE Condition: Improved Scripts Nitrofurantoin Monohyd/M-Cryst* (MACROBID 100 MG*) 100 Mg Capsule 100 MG ORAL EVERY 12 HOURS for 7 Days, #14 CAP Prov: KRISTI TOLEDO M.D. 01/14/17 Finasteride* (PROSCAR*) 5 Mg Tablet 5 MG ORAL DAILY, #30 TAB 0 Refills Prov: KRISTI TOLEDO M.D. 01/14/17 Tamsulosin Hcl (TAMSULOSIN HCL*) 0.4 Mg Cap.er.24h 0.4 MG ORAL BEDTIME for 30 Days, #30 CAP Prov: KRISTI TOLEDO M.D. 01/14/17 Patient Instructions: Acute Urinary Retention, Male KRISTI TOLEDO M.D. Jan 14, 2017 08:24
[2017-01-14 08:48] LABS: APPEARANCE,URINE CLEAR; KETONES,URINE NEGATIVE (NEGATIVE); LEUKOCYTE ESTERASE ,URINE 1+ (NEGATIVE); NITRITE,URINE NEGATIVE (NEGATIVE); PH,URINE 5 (4.5-8.0); PROTEIN,URINE NEGATIVE (NEGATIVE); UROBILINOGEN,URINE NORMAL MG/DL (0.0-1.0)
[2017-01-14 08:49] VITALS: BP 156/91
[2017-01-14 09:01] LABS: BACTERIA,URINE FEW /HPF; SQUAMOUS EPITHELIAL CELL,UR OCCASIONAL /LPF (NONE/OCC)
[2017-01-14] MEDS ORDERED: NITROFURANTOIN100 M2 ORAL (09:03)
[2017-01-14 09:09] VITALS: BP 156/91
== END 2017-01-14 12:40 | disposition home or self-care (01) ==
LOC: EMR 08:15
DX: N40.1 Benign prostatic hyperplasia with lower urinary tract symptoms (principal); R33.8 Other retention of urine; N30.01 Acute cystitis with hematuria; I10 Essential (primary) hypertension; Z90.49 Acquired absence of other specified parts of digestive tract
CPT/HCPCS: 81003; 99284

== ENCOUNTER 2017-01-19 12:04 | Emergency (ER) | payer OTHER ==
[~2017-01-19] VITALS: Ht 182.9 cm; Wt 59.0 kg
[~2017-01-19 12:04] MED LIST changes: +NITROFURANTOIN100 M2 ORAL
[2017-01-19 12:36] VITALS: BP 120/80
--- NOTE | 2017-01-19 12:45 | Emergency Room Report ---
History of Present Illness General Chief Complaint: General Complaint Source: Patient Present Illness [facility] The patient is a 61-year-old male with a history of BPH presenting for discontinuation of Vela catheter. The patient was admitted to this hospital 1 week prior when the Vela was placed. He was told he needs to followup with urology to discontinue the Vela in one week but they have not been able to get an appointment until February 13. He states that the urinary retention began after he ran out of his Flomax. He has now been taking the Flomax as directed since discharge as well as prescribed antibiotics. He denies any pain including abdominal pain, testicular pain, penile pain, nausea, vomiting, rash, fever, chills Allergies: Coded Allergies: No Known Allergies (Unverified , 08/17/13) Patient History Past Medical History: see triage record Pertinent Family History: none Reviewed Nursing Documentation: PMH: Agreed, PSxH: Agreed Nursing Documentation-PMH Hx Hypertension: Yes Hx Cancer: No Hx Seizures: Yes - 4-24years. Review of Systems All Other Systems: negative except mentioned in HPI Physical Exam Vital Signs Date Time Temp Pulse Resp B/P Pulse Ox O2 Delivery O2 Flow Rate FiO2 01/19/17 12:31 98.2 78 16 120/80 9 Room Air Sp02 EP Interpretation: reviewed, normal General Appearance: no apparent distress, alert, GCS 15, non-toxic Head: normocephalic, atraumatic Eyes: bilateral eye PERRL, bilateral eye normal inspection Gastrointestinal: non tender, soft, no guarding Genitourinary: normal inspection, no CVA tenderness, penis normal, other - vela in place Musculoskeletal: back normal, gait/station normal, normal range of motion, non- tender Neurologic: alert, oriented x3, responsive, motor strength/tone normal, sensory intact, speech normal Psychiatric: judgement/insight normal, memory normal, mood/affect normal, no suicidal/homicidal ideation Skin: normal color, no rash, warm/dry, well hydrated Medical Decision Making PA Attestation Dr. Muñoz is my supervising physician. Patient management was discussed with my supervising physician Diagnostic Impression: Primary Impression: BPH (benign prostatic hyperplasia) Qualified Codes: N40.0 - Benign prostatic hyperplasia without lower urinary tract symptoms ER Course The patient is a 61 year-old male with a history of BPH presenting for Vela catheter removal Differential diagnosis is considered but not limited to: Urethritis, urinary tract infection, perforation, among others Physical exam is unremarkable. Vela is in place. No bleeding. Nontender. Urine appears to be bright yellow. Urinalysis shows some red blood cells and white blood cells with few bacteria The patient is still being treated for UTI from past visits and has 4 days of antibiotics left. She will continue to take the antibiotics as were prescribed. The Vela catheter is DC'd and the patient is to followup with urology as soon as possible. He'll continue to take the Flomax Laboratory Tests Test 01/19/17 12:50 Urine Color Yellow Urine Appearance Cloudy Urine pH 7 (4.5-8.0) Urine Specific [place] 1.010 (1.005-1.035) Urine Protein 3+ (NEGATIVE) H Urine Glucose (UA) Negative (NEGATIVE) Urine Ketones Negative (NEGATIVE) Urine Occult Blood 5+ (NEGATIVE) H Urine Nitrite Negative (NEGATIVE) Urine Bilirubin Negative (NEGATIVE) Urine Urobilinogen 1 MG/DL (0.0-1.0) H Urine Leukocyte Esterase 2+ (NEGATIVE) H Urine RBC 20-30 /HPF (0 - 0) H Urine WBC 15-20 /HPF (0 - 0) H Urine Squamous Epithelial Cells Few /LPF (NONE/OCC) Urine Bacteria Few /HPF (NONE) Lab Results Impression WBCs, RBCs, with few bacteria Last Vital Signs Date Time Temp Pulse Resp B/P Pulse Ox O2 Delivery O2 Flow Rate FiO2 01/19/17 12:36 98.2 16 120/80 9 Room Air 01/19/17 12:31 78 Status: improved Disposition: HOME, SELF-CARE Condition: Improved SHYANNE SAVAGE Jan 19, 2017 12:45
[2017-01-19 13:13] LABS: APPEARANCE,URINE CLOUDY; KETONES,URINE NEGATIVE (NEGATIVE); LEUKOCYTE ESTERASE ,URINE 2+ (NEGATIVE); NITRITE,URINE NEGATIVE (NEGATIVE); PH,URINE 7 (4.5-8.0); PROTEIN,URINE 3+ (NEGATIVE); UROBILINOGEN,URINE 1 MG/DL (0.0-1.0)
[2017-01-19 13:23] LABS: BACTERIA,URINE FEW /HPF; RBC,URINE 20-30 /HPF (0 - 0); SQUAMOUS EPITHELIAL CELL,UR FEW /LPF (NONE/OCC); WBC,URINE 15-20 /HPF (0 - 0)
[2017-01-19 14:04] VITALS: BP 120/70
== END 2017-01-19 14:09 | disposition home or self-care (01) ==
LOC: EMR 12:50
DX: Z46.6 Encounter for fitting and adjustment of urinary device (principal); N40.1 Benign prostatic hyperplasia with lower urinary tract symptoms; R33.8 Other retention of urine; I10 Essential (primary) hypertension
CPT/HCPCS: 51701; 81003; 87086; 87181; 99283

== ENCOUNTER 2017-01-19 21:09 | Emergency (ER) | payer OTHER ==
[~2017-01-19] VITALS: Ht 188 cm; Wt 86.2 kg
--- NOTE | 2017-01-19 21:38 | Emergency Room Report ---
History of Present Illness General Chief Complaint: Male Urogenital Problems Source: Patient Present Illness HPI Patient is a 61-year-old male presented after increased difficulty with urination. Patient recently been seen and had a Reich catheter discontinued. Patient had been able to void since the Reich catheter was removed. The patient had the been taking medications. He is advised followup with urologist. Allergies: Coded Allergies: No Known Allergies (Unverified , 08/17/13) Patient History Reviewed Nursing Documentation: PMH: Agreed, PSxH: Agreed Nursing Documentation-PMH Past Medical History: No History, Except For Hx Hypertension: Yes Hx Cancer: No Hx Gastrointestinal Problems: No - BPH Hx Seizures: Yes - 4-24years. Review of Systems All Other Systems: negative except mentioned in HPI Physical Exam Vital Signs Date Time Temp Pulse Resp B/P Pulse Ox O2 Delivery O2 Flow Rate FiO2 01/19/17 21:21 98.1 90 16 98/66 100 Room Air Sp02 EP Interpretation: reviewed, normal General Appearance: normal inspection, well appearing, no apparent distress, alert, GCS 15 Head: atraumatic ENT: normal ENT inspection, hearing grossly normal, normal voice Neck: normal inspection, full range of motion, supple, no bony tend Respiratory: normal inspection, lungs clear, normal breath sounds, no respiratory distress, no retraction, no wheezing Cardiovascular #1: regular rate, rhythm, no edema Gastrointestinal: normal inspection, normal bowel sounds, non tender, soft, no guarding, no hernia Genitourinary: no CVA tenderness, other - bladder distention Musculoskeletal: normal inspection, back normal, normal range of motion Neurologic: normal inspection, alert, oriented x3, responsive, relocation manager III-XII nml as tested, speech normal Psychiatric: normal inspection, judgement/insight normal, mood/affect normal Skin: normal inspection, normal color, no rash Medical Decision Making Diagnostic Impression: Primary Impression: Urinary retention Additional Impression: BPH (benign prostatic hyperplasia) ER Course Patient presented to urinary retention. Differential diagnosis included wasn't limited to the medication reaction, prostate hypertrophy, neurogenic bladder, cauda equina syndrome. Patient's benign exam and does not appear to require any further imaging or laboratory testing at this time. A Reich catheter was placed.The patient improvement in his symptoms after Reich placement. Patient remained normotensive. The patient is advised followup with urology for Reich removal. Last Vital Signs Date Time Temp Pulse Resp B/P Pulse Ox O2 Delivery O2 Flow Rate FiO2 01/19/17 21:21 98.1 90 16 98/66 100 Room Air Status: improved Disposition: HOME, SELF-CARE Condition: Stable Mor Celestin Jan 19, 2017 21:38
[2017-01-19 21:49] VITALS: BP 98/66
[2017-01-19 22:11] VITALS: BP 98/66
== END 2017-01-19 22:11 | disposition home or self-care (01) ==
LOC: EMR 21:38
DX: N40.1 Benign prostatic hyperplasia with lower urinary tract symptoms (principal); R33.8 Other retention of urine; I10 Essential (primary) hypertension
CPT/HCPCS: 51701; 99283

== ENCOUNTER 2017-02-11 17:13 | Emergency (ER) | payer OTHER ==
[~2017-02-11] VITALS: Ht 185.4 cm; Wt 86.2 kg
--- NOTE | 2017-02-11 18:30 | Emergency Room Report ---
History of Present Illness General Chief Complaint: Pain Source: Patient Present Illness HPI 61 YO Male presents to the ED c/o numbness and tingling in the left UE and hand progressive over 3 days. pt. state initially he had a sharp left sided lateral chest pain lasting several seconds, then symptoms in the left upper arm began. pt. denies cardiac hx, denies hx of DM. pt. denies trauma or fall. Pt states this am he did notice tightness/cramping in the left shoulder region and back. Pt rates initial chest pain and shoulder cramping episode as 5/10 in severity. pt. states the numbness and electrical shooting sensation down the medial left arm to all 5 fingers are most concerning for him. denies change in extremity temperature, or skin color changes. denies hx of clotting disorder. pt. states CVA and TN's run in his family and he wanted evaluation. pt. states he took 81mg ASA RAWHIDE BONE ROLLER. denies facial droop, slurred speech, confusion, weakness. Denies Palpitations, LOC, AMS, dizziness, Changes in Vision, or a sudden severe headache. Allergies: Coded Allergies: No Known Allergies (Unverified , 08/17/13) Patient History Past Medical History: see triage record Past Surgical History: none Pertinent Family History: none Immunizations: UTD Reviewed Nursing Documentation: PMH: Agreed, PSxH: Agreed Nursing Documentation-PMH Hx Hypertension: Yes Hx Cancer: No Hx Gastrointestinal Problems: Yes - matthieu Hx Seizures: Yes - 4-24years. Review of Systems All Other Systems: negative except mentioned in HPI Physical Exam Vital Signs Date Time Temp Pulse Resp B/P Pulse Ox O2 Delivery O2 Flow Rate FiO2 02/11/17 17:25 98.2 92 18 152/98 95 Room Air Sp02 EP Interpretation: reviewed, normal General Appearance: no apparent distress, alert, GCS 15, non-toxic Head: normocephalic, atraumatic Eyes: bilateral eye PERRL, bilateral eye normal inspection ENT: hearing grossly normal, normal voice Neck: full range of motion, no bony tend, no carotid bruits, tender lateral - mild left rhomboid ttp. 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 Garibay is my supervising Physician whom patient management has been discussed with. Diagnostic Impression: Primary Impression: Paresthesia and pain of left extremity ER Course 61 YO Male presents to the ED c/o numbness and tingling in the left UE and hand progressive over 3 days. pt. state initially he had a sharp left sided lateral chest pain lasting several seconds, then symptoms in the left upper arm began. pt. denies cardiac hx, denies hx of DM. pt. denies trauma or fall. Pt states this am he did notice tightness/cramping in the left shoulder region and back. Pt rates initial chest pain and shoulder cramping episode as 5/10 in severity. pt. states the numbness and electrical shooting sensation down the medial left arm to all 5 fingers are most concerning for him. denies change in extremity temperature, or skin color changes. denies hx of clotting disorder. pt. states CVA and TN's run in his family and he wanted evaluation. pt. states he took 81mg ASA RAWHIDE BONE ROLLER. denies facial droop, slurred speech, confusion, weakness. Denies Palpitations, LOC, AMS, dizziness, Changes in Vision, or a sudden severe headache. Ddx considered but are not limited to Neuropathy, paresthesia, electrolyte imbalance, raynaud's, cardiac dysrhythmia, stroke, DVT, cyanocobalamin deficiency. nerve palsy, neuritis Vital signs: are WNL, pt. is afebrile H&PE are most consistent with possible nerve impingement, will r/o cardiac cause. PE does not suggest CVA work up, pt. has no focal neurological deficits, or cerebellar findings. ORDERS: -EK NSR with 1st degree AV block interpreted by dr. Garibay. Troponin: WNL -CBC: unremarkable -CMP: unremarkable, electrolytes ok -CK-MB:WNL ED INTERVENTIONS: None required at this time. -d/w pt. the results of his work-up. - D/w pt. to follow up with Neurologist if conservative treatment does not relieve symptoms or for further evaluation. DISCHARGE: At this time pt. is stable for d/c to home. Will provide printed patient care instructions, and any necessary prescriptions. Care plan and follow up instructions have been discussed with the patient prior to discharge. Labs Test 02/11/17 18:22 White Blood Count 5.9 K/UL (4.8-10.8) Red Blood Count 3.73 M/UL (4.70-6.10) Hemoglobin 12.6 G/DL (14.2-18.0) Hematocrit 37.1 % (42.0-52.0) Mean Corpuscular Volume 99 FL (80-99) Mean Corpuscular Hemoglobin 33.9 PG (27.0-31.0) Mean Corpuscular Hemoglobin Concent 34.1 G/DL (32.0-36.0) Red Cell Distribution Width 14.4 % (11.6-14.8) Platelet Count 254 K/UL (150-450) Mean Platelet Volume 6.0 FL (6.5-10.1) Neutrophils (%) (Auto) 38.6 % (45.0-75.0) Lymphocytes (%) (Auto) 47.8 % (20.0-45.0) Monocytes (%) (Auto) 9.9 % (1.0-10.0) Eosinophils (%) (Auto) 2.2 % (0.0-3.0) Basophils (%) (Auto) 1.5 % (0.0-2.0) Sodium Level 139 mEQ/L (135-145) Potassium Level 4.0 mEQ/L (3.4-4.9) Chloride Level 103 mEQ/L (98-107) Carbon Dioxide Level 26 mEQ/L (20-30) Anion Gap 10 (5-15) Blood Urea Nitrogen 14 mg/dL (7-23) Creatinine 1.1 mg/dL (0.7-1.2) Estimat Glomerular Filtration Rate > 60 mL/min (>60) Glucose Level 107 mg/dL (74-106) Calcium Level 9.1 mg/dL (8.6-10.2) Total Bilirubin 0.6 mg/dL (0.0-1.2) Aspartate Amino Transf (AST/SGOT) 13 U/L (5-40) Alanine Aminotransferase (ALT/SGPT) 10 U/L (3-41) Alkaline Phosphatase 71 U/L (40-129) Total Creatine Kinase 86 U/L (38-174) Creatine Kinase MB < 1.5 ng/mL (< 6.7) Creatine Kinase MB Relative Index 1.7 Troponin I < 0.30 ng/mL (<=0.30) Total Protein 6.8 g/dL (6.6-8.7) Albumin 4.0 g/dL (3.5-5.2) Globulin 2.8 g/dL Albumin/Globulin Ratio 1.4 (1.0-2.7) EKG Diagnostic Results EP Interpretation: Dr. Garibay Rate: normal - 64 Rhythm: NSR ST Segments: no acute changes Other Impression 1st degree block ASA given to the pt in ED: No PA Scribe Text - EK BPM NSR - no acute ST changes , first degree AV block interpreted by Dr. Garibay , this interpretation was scribed by GIO Arora Last Vital Signs Date Time Temp Pulse Resp B/P Pulse Ox O2 Delivery O2 Flow Rate FiO2 02/11/17 17:25 98.2 92 18 152/98 95 Room Air Disposition: HOME, SELF-CARE Condition: Stable Scripts Cyclobenzaprine Hcl* (FLEXERIL*) 10 Mg Tablet 10 MG ORAL THREE TIMES A DAY for 7 Days, #21 TAB Prov: Ilene Arora P.A. 02/11/17 Ibuprofen* (MOTRIN*) 600 Mg Tablet 600 MG ORAL THREE TIMES A DAY for 7 Days, #21 TAB 0 Refills Prov: Ilene Arora P.A. 02/11/17 Patient Instructions: Paresthesia Additional Instructions: Take medications as directed. Follow up with a Primary Care Provider in 3-5 days, even if your symptoms have resolved. May require neurologist evaluation if symptoms persist. --Please review list of primary care clinics, if you do not already have a primary care provider Return sooner to ED if new symptoms occur, or current symptoms become worse. Do not drink alcohol, drive, or operate heavy machinery while taking muscle relaxer as this may cause drowsiness. - Please note that this Emergency Department Report was dictated using [employer] sales consultant technology software, occasionally this can lead to erroneous entry secondary to interpretation by the dictation equipment. Ilene Arora Feb 11, 2017 18:30
[2017-02-11 18:40] VITALS: BP 148/94
[2017-02-11 18:40] LABS: BASOPHILS % (AUTO) 1.5 % (0.0-2.0); EOSINOPHILS % (AUTO) 2.2 % (0.0-3.0); LYMPHOCYTES % (AUTO) 47.8 % (20.0-45.0); MEAN CORPUSCULAR HEMOGLOBIN 33.9 PG (27.0-31.0); MEAN CORPUSCULAR HGB CONC 34.1 G/DL (32.0-36.0); MEAN CORPUSCULAR VOLUME 99 FL (80-99); MONOCYTES % (AUTO) 9.9 % (1.0-10.0); NEUTROPHILS % (AUTO) 38.6 % (45.0-75.0); PLATELET COUNT 254 K/UL (150-450); RED BLOOD COUNT 3.73 M/UL (4.70-6.10); RED CELL DISTRIBUTION WIDTH 14.4 % (11.6-14.8); WHITE BLOOD COUNT 5.9 K/UL (4.8-10.8)
[2017-02-11 19:20] LABS: TROPONIN I < 0.30 ng/mL (<=0.30)
[2017-02-11 19:24] LABS: ALANINE AMINOTRANSFERASE 10 U/L (3-41); ALBUMIN/GLOBULIN RATIO 1.4 (1.0-2.7); ANION GAP 10 (5-15); ASPARTATE AMINO TRANSFERASE 13 U/L (5-40); CALCIUM 9.1 mg/dL (8.6-10.2); CARBON DIOXIDE 26 mEQ/L (20-30); CHLORIDE 103 mEQ/L (98-107); CREATININE 1.1 mg/dL (0.7-1.2); GLOMERULAR FILTRATION RATE > 60 mL/min (>60); HEMOLYSIS 6; SODIUM 139 mEQ/L (135-145); TOTAL PROTEIN 6.8 g/dL (6.6-8.7)
[2017-02-11 19:34] LABS: CKMB < 1.5 ng/mL (< 6.7)
[2017-02-11] MEDS ORDERED: CYCLOBENZAPRINE10 MG ORAL (19:40)
[2017-02-11] MEDS ORDERED: IBUPROFEN600 MG ORAL (19:40)
[2017-02-11 20:00] VITALS: BP 148/94
== END 2017-02-11 22:30 | disposition home or self-care (01) ==
LOC: EMR 22:30
DX: R20.0 Anesthesia of skin (principal); R07.9 Chest pain, unspecified; I10 Essential (primary) hypertension; Z90.49 Acquired absence of other specified parts of digestive tract; Z82.3 Family history of stroke; I44.0 Atrioventricular block, first degree
CPT/HCPCS: 36415; 80053; 82550; 82553; 84484; 85025; 93005; 96374

== ENCOUNTER 2017-02-17 08:23 | Emergency (ER) | payer OTHER ==
[~2017-02-17] VITALS: Ht 185.4 cm; Wt 86.2 kg
[~2017-02-17 08:23] MED LIST changes: +CYCLOBENZAPRINE10 MG ORAL; +IBUPROFEN600 MG ORAL
[2017-02-17 08:53] VITALS: BP 144/92
--- NOTE | 2017-02-17 09:03 | Emergency Room Report ---
History of Present Illness General Chief Complaint: Male Urogenital Problems Source: Patient Present Illness HPI 61-year-old male history of hypertension BPH stating "I want my leg bag removed. " Patient had vela/ leg bag placed 31 days ago for 2 days of urinary retention. Pt states he had "1 speck" of blood this am. Patient states that he has had Vela placed twice in the last 2 years. Patient states he finished a course of antibiotics. Patient has been taking his finasteride and Flomax as directed. Patient states that he went to his urologist for a leg bag removal however they could not see him because he did not have his insurance card. Patient states the next available appointment is not for another month. The patient denies any fever chills nausea vomiting abdominal pain dysuria. Allergies: Coded Allergies: No Known Allergies (Unverified , 08/17/13) Patient History Past Medical History: HTN Past Surgical History: none Pertinent Family History: none Nursing Documentation-PMH Hx Hypertension: Yes Hx Cancer: No Hx Gastrointestinal Problems: Yes - matthieu Hx Seizures: Yes - 4-24years. Review of Systems All Other Systems: negative except mentioned in HPI Physical Exam Vital Signs Date Time Temp Pulse Resp B/P Pulse Ox O2 Delivery O2 Flow Rate FiO2 02/17/17 08:28 97.3 83 14 144/92 99 Room Air Sp02 EP Interpretation: reviewed, normal General Appearance: normal inspection, well appearing, no apparent distress, alert, GCS 15, non-toxic Head: normocephalic, atraumatic Eyes: bilateral eye EOMI, bilateral eye PERRL, bilateral eye normal inspection ENT: normal ENT inspection, normal pharynx, normal voice, moist mucus membranes Neck: normal inspection, full range of motion, supple Respiratory: normal inspection, lungs clear, normal breath sounds, no respiratory distress, no retraction, no wheezing, speaking full sentences, chest symmetrical Cardiovascular #1: normal inspection, regular rate, rhythm, no edema, normal capillary refill Gastrointestinal: normal inspection, non tender, soft, non-distended, no guarding Genitourinary: no CVA tenderness, other - Leg bag in place draining clear farshad colored urine. No gross hematuria Musculoskeletal: normal inspection, back normal, normal range of motion, non- tender Neurologic: normal inspection, alert, oriented x3, responsive, normal gait, speech normal Psychiatric: normal inspection, judgement/insight normal, memory normal Skin: normal inspection, normal color, no rash, warm/dry, well hydrated, normal turgor Medical Decision Making Diagnostic Impression: Primary Impression: Encounter for Vela catheter removal Additional Impressions: BPH (benign prostatic hyperplasia) History of urinary retention ER Course 61 yo M w bph, vela for 30 days for retention, here for removal no symptoms such as pain/dysuria/fever chills . Plan: vela removal, ua ER course: Vela removed. Disposition: Patient is to be discharged to home. Patient is instructed to follow up with their primary care doctor within 5 days. Patient is instructed to follow up with his urologist within 2 days Strict return precautions discussed with patient such as fever, chills, worsening/severe pain, nausea, vomiting, which may indicate severe illness. The patient was told that if he continues to have urinary retention to please come back into the emergency room asking the need for the reinsertion. Patient verbalizes understanding and agrees with plan. Patient left without prescription or discharge papers, stated "I have to get out of here I have to do things today". nontoxic/ambulatory Last Vital Signs Date Time Temp Pulse Resp B/P Pulse Ox O2 Delivery O2 Flow Rate FiO2 02/17/17 08:53 97.3 83 14 144/92 99 Room Air Disposition: HOME, SELF-CARE Condition: Improved Scripts Cephalexin* (KEFLEX*) 500 Mg Capsule 500 MG ORAL Q6H, #28 CAP 0 Refills Prov: Konrad Goss M.D. 02/17/17 Additional Instructions: Please follow up with your primary care doctor within 5 days. Please make an appointment to see your urologist within 2 days. Please return to the emergency room immediately if you are experiencing severe or worsening pain, high fevers or chills, chest pain, shortness of breath, severe abdominal pain, nausea or vomiting. Please return to the emergency room if you are having urinary retention as he may need a Vela reinsertion Konrad Goss M.D. Feb 17, 2017 09:03
[2017-02-17 09:16] LABS: APPEARANCE,URINE CLOUDY; KETONES,URINE NEGATIVE (NEGATIVE); LEUKOCYTE ESTERASE ,URINE 3+ (NEGATIVE); NITRITE,URINE POSITIVE (NEGATIVE); PH,URINE 6 (4.5-8.0); PROTEIN,URINE 3+ (NEGATIVE); UROBILINOGEN,URINE NORMAL MG/DL (0.0-1.0)
[2017-02-17 09:27] LABS: WBC,URINE 15-20 /HPF (0 - 0)
[2017-02-17 09:28] LABS: BACTERIA,URINE MANY /HPF; MUCUS,URINE FEW /LPF (NONE/OCC); SQUAMOUS EPITHELIAL CELL,UR OCCASIONAL /LPF (NONE/OCC)
[2017-02-17] MEDS ORDERED: KEFLEX500 MG ORAL (09:38)
[2017-02-17 09:49] VITALS: BP 140/87
[2017-02-17 09:51] VITALS: BP 140/87
== END 2017-02-17 09:54 | disposition home or self-care (01) ==
LOC: EMR 09:25
DX: R33.8 Other retention of urine (principal); Z46.6 Encounter for fitting and adjustment of urinary device; N40.1 Benign prostatic hyperplasia with lower urinary tract symptoms; I10 Essential (primary) hypertension
CPT/HCPCS: 51702; 81003; 87086; 87181; 99283

== ENCOUNTER 2017-02-17 21:14 | Emergency (ER) | payer OTHER ==
[~2017-02-17] VITALS: Ht 185.4 cm; Wt 86.2 kg
[~2017-02-17 21:14] MED LIST changes: +KEFLEX500 MG ORAL
--- NOTE | 2017-02-17 21:54 | Emergency Room Report ---
History of Present Illness General Chief Complaint: unable to void Source: Patient Present Illness HPI Patient is a 61-year-old male who presented after increased difficulty with urination. Patient had recently had Reich catheter removed. The patient was noted to have the no recent fever. He had been taking Flomax as well as Proscar. The patient was advised followup with urology but had not been able to make an appointment. Patient not been having any vomiting or diarrhea Allergies: Coded Allergies: No Known Allergies (Unverified , 08/17/13) Patient History Reviewed Nursing Documentation: PMH: Agreed, PSxH: Agreed Nursing Documentation-PMH Hx Hypertension: Yes Hx Cancer: No Hx Gastrointestinal Problems: Yes - matthieu Hx Seizures: Yes - 4-24years. Review of Systems All Other Systems: negative except mentioned in HPI Physical Exam General Appearance: well appearing, no apparent distress, alert, GCS 15 Head: normocephalic, atraumatic ENT: hearing grossly normal, normal voice Neck: full range of motion, supple Respiratory: no respiratory distress, speaking full sentences Cardiovascular #1: normal inspection, regular rate, rhythm Gastrointestinal: normal inspection, soft Musculoskeletal: normal inspection, back normal, no calf tenderness Neurologic: normal inspection, alert, oriented x3, normal gait Psychiatric: mood/affect normal Skin: no rash Medical Decision Making Diagnostic Impression: Primary Impression: Urinary retention due to benign prostatic hyperplasia Additional Impression: Reich Catheter Placement ER Course .Patient presented to urinary retention. Differential diagnosis included wasn' t limited to the medication reaction, prostate hypertrophy, neurogenic bladder, cauda equina syndrome. Patient's benign exam and does not appear to require any further imaging or laboratory testing at this time. The patient was given another Reich catheter.Patient had large amount of urine output and was normotensive after catheter placement. The patient is advised to follow up with primary care doctor in 1-2 days. The patient was advised that he would need followup with urology. Patient is advised to return if any worsening condition or if any changes in status that are concerning. Status: improved Disposition: HOME, SELF-CARE Condition: Stable Mor Celestin Feb 17, 2017 21:54
[2017-02-17 22:10] VITALS: BP 111/78
[2017-02-17 22:13] VITALS: BP 111/78
== END 2017-02-17 22:15 | disposition home or self-care (01) ==
LOC: EMR 21:54
DX: N40.1 Benign prostatic hyperplasia with lower urinary tract symptoms (principal); R33.8 Other retention of urine; I10 Essential (primary) hypertension
CPT/HCPCS: 51702; 99283

== ENCOUNTER 2017-02-27 16:09 | Emergency (ER) | payer OTHER ==
[~2017-02-27] VITALS: Ht 185.4 cm; Wt 89.4 kg
--- NOTE | 2017-02-27 16:33 | Emergency Room Report ---
History of Present Illness General Chief Complaint: Male Urogenital Problems Source: Patient Present Illness HPI 61YOM with known BPH with urinary retention again On flomax Dribbling urine and suprapubic pain Denies nausea/vomiting, diarrhea, fever/chills Has appointment Apr 2 with urology has been here multiple times for same Allergies: Coded Allergies: No Known Allergies (Unverified , 08/17/13) Patient History Past Medical History: other - BPH Past Surgical History: none Pertinent Family History: none Social History: Denies: smoking, alcohol use, drug use Immunizations: UTD Reviewed Nursing Documentation: PMH: Agreed, PSxH: Agreed Nursing Documentation-PMH Hx Hypertension: Yes Hx Cancer: No Hx Gastrointestinal Problems: Yes - matthieu Hx Seizures: Yes - 4-24years. Review of Systems All Other Systems: negative except mentioned in HPI Physical Exam Vital Signs Date Time Temp Pulse Resp B/P (MAP) Pulse Ox O2 Delivery O2 Flow Rate FiO2 02/27/17 16:15 97.3 104 24 153/101 98 Room Air Sp02 EP Interpretation: reviewed, normal General Appearance: normal inspection, well appearing, no apparent distress, alert, GCS 15, non-toxic Head: normocephalic, atraumatic Eyes: bilateral eye PERRL, bilateral eye EOMI ENT: normal ENT inspection Neck: normal inspection, full range of motion, supple, no bony tend Respiratory: normal inspection, lungs clear, normal breath sounds, no respiratory distress, no retraction, no wheezing Cardiovascular #1: regular rate, rhythm, no edema Gastrointestinal: normal inspection, normal bowel sounds, non tender, soft, no guarding, no hernia Genitourinary: no CVA tenderness, other - Suprapubic ttp. No distention or peritonitis Musculoskeletal: normal inspection, back normal, normal range of motion, Yesy' s Sign negative Neurologic: normal inspection, alert, oriented x3, responsive, offc spec III-XII nml as tested, motor strength/tone normal, speech normal Psychiatric: normal inspection, judgement/insight normal, mood/affect normal Skin: normal inspection, normal color, no rash Medical Decision Making Diagnostic Impression: Primary Impression: Urinary retention due to benign prostatic hyperplasia Additional Impression: UTI (urinary tract infection) Qualified Codes: N30.01 - Acute cystitis with hematuria ER Course Vela placed with large outflow of urine VSS. Afebrile. Not septic UA: grossly infected. per most recent urine Cx, susceptible to Cipro. Rx Cipro DC with vela and leg bag Has Urology followup DC home Last Vital Signs Date Time Temp Pulse Resp B/P (MAP) Pulse Ox O2 Delivery O2 Flow Rate FiO2 02/27/17 16:15 97.3 104 24 153/101 98 Room Air Status: improved Disposition: HOME, SELF-CARE KRISTI TOLEDO M.D. Feb 27, 2017 16:33
[2017-02-27 16:40] VITALS: BP 148/98
[2017-02-27 17:07] LABS: APPEARANCE,URINE CLEAR; KETONES,URINE NEGATIVE (NEGATIVE); LEUKOCYTE ESTERASE ,URINE 2+ (NEGATIVE); NITRITE,URINE NEGATIVE (NEGATIVE); PH,URINE 5 (4.5-8.0); PROTEIN,URINE NEGATIVE (NEGATIVE); UROBILINOGEN,URINE NORMAL MG/DL (0.0-1.0)
[2017-02-27 17:15] LABS: BACTERIA,URINE MANY /HPF; RBC,URINE 0-2 /HPF (0 - 0)
[2017-02-27 17:24] VITALS: BP 150/98
[2017-02-27] MEDS ORDERED: CIPROFLOXACIN500 M2 ORAL (17:24)
[2017-02-27 17:51] VITALS: BP 150/98
== END 2017-02-27 17:54 | disposition home or self-care (01) ==
LOC: EMR 16:33
DX: N40.1 Benign prostatic hyperplasia with lower urinary tract symptoms (principal); R33.8 Other retention of urine; N30.01 Acute cystitis with hematuria; Z90.49 Acquired absence of other specified parts of digestive tract; I10 Essential (primary) hypertension
CPT/HCPCS: 51702; 81003; 87086; 99284

== ENCOUNTER 2017-04-14 09:23 | Emergency (ER) | payer OTHER ==
[~2017-04-14] VITALS: Ht 185.4 cm; Wt 90.7 kg
[~2017-04-14 09:23] MED LIST changes: +CIPROFLOXACIN500 M2 ORAL
[2017-04-14 09:35] VITALS: BP 128/86
[2017-04-14 09:46] VITALS: BP 128/86
--- NOTE | 2017-04-14 10:40 | Emergency Room Report ---
History of Present Illness General Chief Complaint: General Complaint Source: Patient, Medical Record Present Illness HPI 62-year-old male presents ED for evaluation. Patient states that he needs the bag on his Vela catheter changed. Patient states that he Vela placed on 04/02 by his urologist. States there is no problem the Vela catheter itself but the bag is leaking. Denies any dysuria or hematuria. Denies any pain. No other aggravating relieving factors. Denies any other associated symptoms Allergies: Coded Allergies: No Known Allergies (Unverified , 08/17/13) Patient History Past Medical History: HTN Past Surgical History: matthieu Pertinent Family History: none Social History: Denies: smoking, alcohol use, drug use Immunizations: UTD Reviewed Nursing Documentation: PMH: Agreed, PSxH: Agreed Nursing Documentation-PMH Past Medical History: No History, Except For Hx Hypertension: Yes Hx Cancer: No Hx Gastrointestinal Problems: Yes - matthieu Hx Seizures: Yes - 4-24years. Review of Systems All Other Systems: negative except mentioned in HPI Physical Exam Vital Signs Date Time Temp Pulse Resp B/P (MAP) Pulse Ox O2 Delivery O2 Flow Rate FiO2 04/14/17 09:26 98.2 81 16 128/86 100 Room Air Sp02 EP Interpretation: reviewed, normal General Appearance: no apparent distress, alert, GCS 15, non-toxic Head: normocephalic, atraumatic Eyes: bilateral eye normal inspection, bilateral eye PERRL ENT: hearing grossly normal, normal pharynx, no angioedema, normal voice Neck: full range of motion, supple/symm/no masses Respiratory: chest non-tender, lungs clear, normal breath sounds, speaking full sentences Cardiovascular #1: regular rate, rhythm, no edema Cardiovascular #2: 2+ carotid (R), 2+ carotid (L), 2+ radial (R), 2+ radial (L) , 2+ dorsalis pedis (R), 2+ dorsalis pedis (L) Gastrointestinal: normal bowel sounds, non tender, soft, non-distended, no guarding, no rebound Rectal: deferred Genitourinary: normal inspection, no CVA tenderness, other - vela catheter in place Musculoskeletal: back normal, gait/station normal, normal range of motion, non- tender Neurologic: alert, oriented x3, responsive, motor strength/tone normal, sensory intact, speech normal Psychiatric: judgement/insight normal, memory normal, mood/affect normal, no suicidal/homicidal ideation Reflexes: 3+ bicep (R), 3+ bicep (L), 3+ tricep (R), 3+ tricep (L), 3+ knee (R) , 3+ knee (L) Skin: normal color, no rash, warm/dry, well hydrated Lymphatic: no adenopathy Medical Decision Making Diagnostic Impression: Primary Impression: Problem with Vela catheter Qualified Codes: T83.9XXA - Unspecified complication of genitourinary prosthetic device, implant and graft, initial encounter ER Course Hospital Course 62-year-old male presents to ED requesting change of the leg bag on his Vela catheter. Clinical course Patient placed on stretcher. After initial history and physical , we replaced the leg bag of his Vela catheter without complication Diagnosis - problem with vela catheter Stable and discharged home with vela + leg bag. Instructed to followup with PMD/urologist. Return to ED if symptoms recur or worsen Last Vital Signs Date Time Temp Pulse Resp B/P (MAP) Pulse Ox O2 Delivery O2 Flow Rate FiO2 04/14/17 09:46 98.2 16 128/86 100 Room Air 04/14/17 09:26 81 Status: improved Disposition: HOME, SELF-CARE Condition: Stable Referrals: [facility]ERR[facility] (PCP) Patient Instructions: Vela Catheter Care, Adult DAWOOD BURNS M.D. Apr 14, 2017 10:40
== END 2017-04-14 09:46 | disposition home or self-care (01) ==
LOC: EMR 09:35
DX: T83.031A Leakage of indwelling urethral catheter, initial encounter (principal); Y84.6 Urinary catheterization as the cause of abnormal reaction of the patient, or of later complication, without mention of misadventure at the time of the procedure; Y92.89 Other specified places as the place of occurrence of the external cause; I10 Essential (primary) hypertension
CPT/HCPCS: 99283

== ENCOUNTER 2017-04-28 11:45 | Emergency (ER) | payer OTHER ==
[~2017-04-28] VITALS: Ht 182.9 cm; Wt 90.7 kg
[2017-04-28 11:56] VITALS: BP 124/79
--- NOTE | 2017-04-28 12:14 | Emergency Room Report ---
History of Present Illness General Chief Complaint: Male Urogenital Problems Present Illness HPI 62 YO Male presents to the ED c/o removing his Vela catheter at home due to complications with catheter leaking. denies fevers, chills, dysuria, hematuria , concentrated or malodorous urine. denies abdominal pain/ distention. pt. reports he just finished a course of abx. from his urologist, and states he has an appt. with his urologist next week. pt. has a hx of BPH and urinary obstruction. Denies CP, Palpitations, LOC, AMS, dizziness, Changes in Vision, Sensation, paresthesias, or a sudden severe headache. Allergies: Coded Allergies: No Known Allergies (Unverified , 08/17/13) Patient History Past Medical History: see triage record Past Surgical History: none Pertinent Family History: none Immunizations: UTD Reviewed Nursing Documentation: PMH: Agreed, PSxH: Agreed Nursing Documentation-PMH Hx Hypertension: Yes Hx Cancer: No Hx Gastrointestinal Problems: Yes - matthieu Hx Seizures: Yes - 4-24years. Review of Systems All Other Systems: negative except mentioned in HPI Physical Exam Vital Signs Date Time Temp Pulse Resp B/P (MAP) Pulse Ox O2 Delivery O2 Flow Rate FiO2 04/28/17 11:53 97.3 85 20 124/79 99 Room Air Sp02 EP Interpretation: reviewed, normal General Appearance: no apparent distress, alert, GCS 15, non-toxic Head: normocephalic, atraumatic Eyes: bilateral eye normal inspection, bilateral eye PERRL ENT: hearing grossly normal, normal pharynx, no angioedema, normal voice Neck: full range of motion, supple/symm/no masses Respiratory: lungs clear, normal breath sounds, speaking full sentences Cardiovascular #1: regular rate, rhythm Gastrointestinal: normal bowel sounds, non tender, soft, no guarding, no rebound Rectal: deferred Genitourinary: normal inspection, no CVA tenderness Musculoskeletal: back normal, gait/station normal, normal range of motion Neurologic: alert, oriented x3, responsive, motor strength/tone normal, sensory intact, speech normal Skin: normal color, no rash, warm/dry, well hydrated Medical Decision Making PA Attestation Dr. Goss is my supervising Physician whom patient management has been discussed with. Diagnostic Impression: Primary Impression: Evla Catheter Placement Additional Impression: Urinary retention due to benign prostatic hyperplasia ER Course Pt. presents to the ED c/o removing his Vela catheter at home due to complications with catheter leaking. denies fevers, chills, dysuria, hematuria , concentrated or malodorous urine. denies abdominal pain/ distention. pt. reports he just finished a course of abx. from his urologist, and states he has an appt. with his urologist next week. pt. has a hx of BPH and urinary obstruction. Ddx considered but are not limited to UTi , Pyelo, STI, Stone, Cystitis, vela cath blockage. Vital signs: are WNL, pt. is afebrile H&PE are most consistent with blocked vela catheter. ORDERS: - insert new vela catheter. ED INTERVENTIONS: - Upon insertion of new vela pt. produces approx 200cc of urine, non -bloody. -- I do not believe pt. requires prophylactic abx at this time as he just finished a course yesterday. DISCHARGE: At this time pt. is stable for d/c to home. Will provide printed patient care instructions, and any necessary prescriptions. Care plan and follow up instructions have been discussed with the patient prior to discharge. Last Vital Signs Date Time Temp Pulse Resp B/P (MAP) Pulse Ox O2 Delivery O2 Flow Rate FiO2 04/28/17 11:56 97.3 20 124/79 99 Room Air 04/28/17 11:53 85 Disposition: HOME, SELF-CARE Condition: Stable Patient Instructions: Vela Catheter Care, Adult Additional Instructions: Take any previously prescribed medications as directed. Follow up with a UROLOGIST and your PCP in 3-5 days, even if your symptoms have resolved. Return sooner to ED if new symptoms occur, or current symptoms become worse. - Please note that this Emergency Department Report was dictated using [employer] assistant technology software, occasionally this can lead to erroneous entry secondary to interpretation by the dictation equipment. Ilene Arora Apr 28, 2017 12:14
[2017-04-28 12:35] VITALS: BP 124/79
== END 2017-04-28 12:39 | disposition home or self-care (01) ==
LOC: EMR 12:39
DX: T83.031A Leakage of indwelling urethral catheter, initial encounter (principal); Y84.6 Urinary catheterization as the cause of abnormal reaction of the patient, or of later complication, without mention of misadventure at the time of the procedure; Y92.009 Unspecified place in unspecified non-institutional (private) residence as the place of occurrence of the external cause; N40.1 Benign prostatic hyperplasia with lower urinary tract symptoms; R33.8 Other retention of urine; I10 Essential (primary) hypertension
CPT/HCPCS: 99283

== ENCOUNTER 2017-05-12 22:05 | Emergency (ER) | payer OTHER ==
[~2017-05-12] VITALS: Ht 185.4 cm; Wt 88.0 kg
[2017-05-12 23:11] VITALS: BP 136/78
--- NOTE | 2017-05-13 03:29 | Emergency Room Report ---
History of Present Illness General Chief Complaint: Male Urogenital Problems Source: Patient Present Illness HPI 62-year-old male presents ED for evaluation. States that he needs a Vela catheter. Has a history of prostate enlargement. States he removed his Vela catheter 2 days ago and since has had difficulty urinating. Denies any pain. Denies any fevers or chills. Denies any flank pain. No other aggravating relieving factors. No other associated symptoms Allergies: Coded Allergies: No Known Allergies (Unverified , 08/17/13) Patient History Past Medical History: seizures Past Surgical History: matthieu Pertinent Family History: none Social History: Denies: smoking, alcohol use, drug use Immunizations: UTD Reviewed Nursing Documentation: PMH: Agreed, PSxH: Agreed Nursing Documentation-PMH Past Medical History: No History, Except For Hx Hypertension: Yes Hx Cancer: No Hx Gastrointestinal Problems: Yes - matthieu Hx Seizures: Yes - 4-24years. Review of Systems All Other Systems: negative except mentioned in HPI Physical Exam Vital Signs Date Time Temp Pulse Resp B/P (MAP) Pulse Ox O2 Delivery O2 Flow Rate FiO2 05/12/17 22:16 97.9 87 16 136/78 98 Room Air Sp02 EP Interpretation: reviewed, normal General Appearance: no apparent distress, alert, GCS 15, non-toxic Head: normocephalic, atraumatic Eyes: bilateral eye normal inspection, bilateral eye PERRL ENT: hearing grossly normal, normal pharynx, no angioedema, normal voice Neck: full range of motion, supple/symm/no masses Respiratory: chest non-tender, lungs clear, normal breath sounds, speaking full sentences Cardiovascular #1: regular rate, rhythm, no edema Cardiovascular #2: 2+ carotid (R), 2+ carotid (L), 2+ radial (R), 2+ radial (L) , 2+ dorsalis pedis (R), 2+ dorsalis pedis (L) Gastrointestinal: normal bowel sounds, non tender, soft, non-distended, no guarding, no rebound Rectal: deferred Genitourinary: normal inspection, no CVA tenderness Musculoskeletal: back normal, gait/station normal, normal range of motion, non- tender Neurologic: alert, oriented x3, responsive, motor strength/tone normal, sensory intact, speech normal Psychiatric: judgement/insight normal, memory normal, mood/affect normal, no suicidal/homicidal ideation Reflexes: 3+ bicep (R), 3+ bicep (L), 3+ tricep (R), 3+ tricep (L), 3+ knee (R) , 3+ knee (L) Skin: normal color, no rash, warm/dry, well hydrated Lymphatic: no adenopathy Medical Decision Making Diagnostic Impression: Primary Impression: Vela Catheter Placement ER Course Hospital Course 62-year-old M presents to ED complaining of urinary retention. Differential diagnoses include: obstruction, UTI, BPH Clinical course Patient placed on stretcher. After initial history and physical I ordered vela cather with immediate relief of obstruction Diagnosis - urinary retention Stable and discharged home with vela + leg bag. Instructed to followup with PMD/urologist. Return to ED if symptoms recur or worsen Last Vital Signs Date Time Temp Pulse Resp B/P (MAP) Pulse Ox O2 Delivery O2 Flow Rate FiO2 05/12/17 23:11 97.9 16 136/78 98 Room Air 05/12/17 23:11 87 Status: improved Disposition: HOME, SELF-CARE Condition: Stable Referrals: NON PHYSICIAN (PCP) Patient Instructions: Vela Catheter Care, Adult, [id number] DAWOOD BURNS M.D. May 13, 2017 03:29
== END 2017-05-12 23:11 | disposition home or self-care (01) ==
LOC: EMR 22:55
DX: Z46.6 Encounter for fitting and adjustment of urinary device (principal); N40.0 Benign prostatic hyperplasia without lower urinary tract symptoms; I10 Essential (primary) hypertension
CPT/HCPCS: 99283

== ENCOUNTER 2017-08-25 03:27 | Emergency (ER) | payer OTHER ==
[~2017-08-25] VITALS: Ht 185.4 cm; Wt 92.5 kg
[2017-08-25 03:35] VITALS: BP 150/88
--- NOTE | 2017-08-25 03:38 | Emergency Room Report ---
History of Present Illness General Chief Complaint: To Be Triaged Source: Patient, Medical Record Present Illness HPI This 62-year-old male with a history urinary retention requiring Reich's. He was doing well off of it for 4 months. He says with chief complaint of urinary retention. Onset since 11 PM. Severe pain. Similar symptom in the past. No nausea no vomiting. Worse with movement. Has urgency but cannot urinate. Allergies: Coded Allergies: No Known Allergies (Unverified , 08/17/13) Patient History Past Medical History: see triage record, old chart reviewed Past Surgical History: other Pertinent Family History: none Social History: Denies: smoking Immunizations: other Reviewed Nursing Documentation: PMH: Agreed, PSxH: Agreed Nursing Documentation-PMH Hx Hypertension: Yes Hx Cancer: No Hx Gastrointestinal Problems: Yes - matthieu Hx Seizures: Yes - 4-24years. Review of Systems Eye: Denies: eye pain, blurred vision ENT: Denies: ear pain, nose congestion, throat swelling Respiratory: Denies: cough, shortness of breath Cardiovascular: Denies: chest pain, palpitations Gastrointestinal: Denies: abdominal pain, diarrhea, nausea, vomiting Genitourinary: Reports: retention Musculoskeletal: Denies: back pain, joint pain Skin: Denies: rash Neurological: Denies: headache, numbness Endocrine: Denies: increased thirst, increased urine Hematologic/Lymphatic: Denies: easy bruising All Other Systems: negative except mentioned in HPI Physical Exam Sp02 EP Interpretation: reviewed, normal General Appearance: well appearing, no apparent distress, alert Head: normocephalic, atraumatic Eyes: bilateral eye PERRL, bilateral eye EOMI ENT: hearing grossly normal, normal pharynx Neck: full range of motion, supple, no meningismus Respiratory: chest non-tender, lungs clear, normal breath sounds Cardiovascular #1: regular rate, rhythm, no murmur Gastrointestinal: normal bowel sounds, non tender, no mass, no organomegaly, no bruit, non-distended, other - Distended bladder Musculoskeletal: back normal, gait/station normal, normal range of motion Neurologic: alert, oriented x3 Psychiatric: mood/affect normal Skin: warm/dry Medical Decision Making Diagnostic Impression: Primary Impression: Urinary retention ER Course Patient with urinary retention requiring a Reich. Better after insertion. We' ll discharge home. Status: improved Disposition: HOME, SELF-CARE Condition: Stable Additional Instructions: Followup with your Dr. in 3-4 days for reevaluation. Return if worse. OWEN ROSAS M.D. Aug 25, 2017 03:37
[2017-08-25 03:50] VITALS: BP 145/89
[2017-08-25 03:55] VITALS: BP 145/89
== END 2017-08-25 03:55 | disposition home or self-care (01) ==
LOC: EMR 03:45
DX: R33.9 Retention of urine, unspecified (principal); I10 Essential (primary) hypertension
CPT/HCPCS: 99283

== ENCOUNTER 2018-02-15 09:10 | Emergency (ER) | payer OTHER ==
[~2018-02-15] VITALS: Ht 185.4 cm; Wt 92.5 kg
[2018-02-15 09:20] VITALS: BP 136/86
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
[2018-02-15] MEDS ORDERED: TAMSULOSIN HCL0.4 MG ORAL (10:31)
[2018-02-15 10:43] VITALS: BP 136/86
== END 2018-02-15 10:35 | disposition home or self-care (01) ==
LOC: EMR 09:31
DX: R33.9 Retention of urine, unspecified (principal); I10 Essential (primary) hypertension
CPT/HCPCS: 51702; 99284